=== PATIENT | female | born 1940 | race Hispanic/Latino ===

== ENCOUNTER 2017-02-03 17:08 | Emergency (ER) | payer MEDICARE ==
[2017-02-03 17:21] VITALS: BMI 31.4
[2017-02-03] MEDS ORDERED: Levalbuterol 1.25 MG/3 ML Inhal Soln UD IH STA ×2 (17:49→17:50)
[2017-02-03] MEDS ORDERED: guaiFENesin 200 mg/10 ml Syrup UD PO STA (17:50)
[2017-02-03] MEDS ORDERED: Ipratropium 0.02% Inhal Soln (0.5 mg/2.5 ml) UD IH STA ×2 (17:50)
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
[2017-02-03 19:11] LABS: ADD MANUAL DIFF? NO
[2017-02-03 19:15] LABS: BASO # 0.03 K/mm3 (0.0-2.0); BASO % 0.4 % (0.0-3.0); EOS # 0.1 (0.0-0.7); EOS % 1.1 % (1.5-5.0); GRAN # 4.48 (1.4-6.5); HEMATOCRIT 44.6 % (36.0-48.0); LYMPH # 2.1 (1.2-3.4); LYMPH % 27.1 % (22.0-35.0); MEAN CELL VOLUME 93.1 fL (80.0-105.0); MEAN CORPUSCULAR HEMOGLOBIN 32.4 pg (25.0-35.0); MEAN CORPUSCULAR HGB CONC 34.8 g/dl (31.0-37.0); MEAN PLATELET VOLUME 9.4 fl (7.0-11.0); MONO # 1.1 (0.1-0.6); MONO % 14.4 % (1.0-6.0); PLATELET COUNT 183 10^3/uL (120.0-450.0); RED CELL DISTRIBUTION WIDTH 13.2 % (11.5-14.5); WHITE BLOOD COUNT 7.9 10^3/ul (4.5-11.0)
[2017-02-03 19:29] LABS: ALB/GLOB RATIO 1.2 (1.1-1.8); ALKALINE PHOSPHATASE 89 U/L (38-133); ALT/SGPT 43 U/L (7-56); AST/SGOT 32 U/L (15-39); BILIRUBIN,TOTAL 0.6 mg/dL (0.2-1.3); BLOOD UREA NITROGEN 26 mg/dL (7-21); CALCIUM 9.7 mg/dL (8.4-10.5); CARBON DIOXIDE 27 mmol/L (21-33); CHLORIDE 95 mmol/L (98-107); GFR AFRICAN-AMERICAN > 60; GLUCOSE,RANDOM 152 mg/dL (70-110); INR 0.97 (0.93-1.08); LIPASE 170 U/L (23-300); MAGNESIUM 2.1 mg/dL (1.7-2.2); PARTIAL THROMBOPLASTIN TIME 25.7 Seconds (23.7-30.8); POTASSIUM 4.2 mmol/L (3.6-5.0); SODIUM 136 mmol/L (132-148); TOTAL PROTEIN 8.4 g/dL (5.8-8.3)
[2017-02-03 19:30] VITALS: BP 125/75
[2017-02-03 19:43] LABS: TROPONIN I < 0.01 ng/mL
[2017-02-03 22:06] VITALS: PULSE 89; TEMP 98; O2SAT 98
[2017-02-03 22:07] VITALS: RESP 18
--- NOTE | 2017-02-04 07:49 | RAD ---
PROCEDURE: CHEST RADIOGRAPH, 1 VIEW HISTORY: SOB COMPARISON: 05/21/2015 FINDINGS: LUNGS: Clear. PLEURA: No pneumothorax or pleural fluid seen. CARDIOVASCULAR: Normal heart soft this. Calcified aortic knob-unchanged OSSEOUS STRUCTURES: No significant abnormalities. VISUALIZED UPPER ABDOMEN: Normal. OTHER FINDINGS: Large body habitus limiting optimal evaluation IMPRESSION: No active disease.
--- NOTE | 2017-02-04 09:06 | US ---
HISTORY: Leg pain and swelling. Evaluate for DVT PHYSICIAN(S): Dejon Klein MD. TECHNIQUE: Duplex sonography and color-flow Doppler with graded compression were used to evaluate the deep venous systems of both lower extremities. FINDINGS: The visualized deep venous systems of both lower extremities are sonographically normal and compressible. Normal wave forms and augmentation are seen. There is no sonographic evidence for deep venous thrombosis in the visualized segments of both lower extremities. IMPRESSION: No sonographic evidence for deep venous thrombosis in the visualized segments of both lower extremities.
--- NOTE | 2017-02-04 11:22 | CT ---
PROCEDURE: CT Chest without contrast HISTORY: sob; cough, breast mass COMPARISON: None. TECHNIQUE: Contiguous axial images were obtained through the chest without intravenous contrast enhancement. Sagittal and coronal reconstructions were performed. Radiation dose (DLP): 753 mGy-cm. This CT exam was performed using one or more of the following dose reduction techniques: Automated exposure control, adjustment of the mA and/or kV according to patient size, and/or use of iterative reconstruction technique. FINDINGS: LUNGS: Clear lungs. Visualized airway clear. MEDIASTINUM: Unremarkable thoracic aorta. No aneurysm. Normal sized heart. Main pulmonary artery unremarkable. No vascular congestion. No lymphadenopathy. PLEURA: No pleural fluid. No pneumothorax. BONES: No fracture. No destructive lesion. UPPER ABDOMEN: Grossly unremarkable. OTHER FINDINGS: There is a 3 cm mass in the medial inferior aspect of the left breast. Coarse calcifications are seen in both breasts. Followup is recommended. The report concurs with the preliminary [facility] report IMPRESSION: Unremarkable non-contrast enhanced CT of the chest. There is a 3 cm mass in the medial inferior aspect of the left breast. Coarse calcifications are seen in both breasts. Followup is recommended.
--- NOTE | 2017-02-04 13:04 | CARD ---
APPROVED REPORT EKG Measurement Heart [id number] <Conclusion> Normal sinus rhythm Left axis deviation Minimal voltage criteria for LVH, may be normal variant
--- NOTE | 2017-02-04 13:15 | NM ---
COMPARISON: Chest x-ray 02/03/2017 TECHNIQUE: 33.0 mCi technetium 99-m DTPA aerosol. 4.0 mCI technetium 99-m MAA administered intravenously. FINDINGS: VENTILATION COMPONENT: Normal. PERFUSION COMPONENT: Normal. The report concurs with the preliminary [facility] report IMPRESSION: Lowprobability ventilation perfusion scan for pulmonary embolism.
== END 2017-02-03 22:07 | disposition home or self-care (01) ==
LOC: ED 17:08
DX: J20.9 Acute bronchitis, unspecified (principal); I10 Essential (primary) hypertension; E11.9 Type 2 diabetes mellitus without complications; Z72.0 Tobacco use
CPT/HCPCS: 71010; 71250; 78582; 80053; 82550; 83615; 83690; 83735; 83880; 84484; 85025; 85610; 85730; 87040; 93005; 93970; 96374; 99284; A9540; J2930

== ENCOUNTER 2017-09-29 16:29 | Inpatient (IN) | payer MEDICARE ==
[2017-09-29 16:40] VITALS: BMI 39.1
[2017-09-29 19:07] LABS: BASO # 0.03 K/mm3 (0.0-2.0); BASO % 0.5 % (0.0-3.0); EOS % 0.6 % (1.5-5.0); GRAN # 4.65 (1.4-6.5); GRAN % 75.3 % (50.0-68.0); HEMATOCRIT 41.4 % (36.0-48.0); LYMPH # 1.3 (1.2-3.4); LYMPH % 20.2 % (22.0-35.0); MEAN CELL VOLUME 95.6 fl (80.0-105.0); MEAN CORPUSCULAR HEMOGLOBIN 32.6 pg (25.0-35.0); MEAN CORPUSCULAR HGB CONC 34.1 g/dl (31.0-37.0); MEAN PLATELET VOLUME 9.5 fl (7.0-11.0); MONO # 0.2 (0.1-0.6); MONO % 3.4 % (1.0-6.0); RED CELL DISTRIBUTION WIDTH 13.5 % (11.5-14.5); WHITE BLOOD COUNT 6.2 10^3/ul (4.5-11.0)
[2017-09-29 19:09] LABS: INR 1.11 (0.93-1.08)
[2017-09-29 19:21] LABS: ALB/GLOB RATIO 1.5 (1.1-1.8); ALKALINE PHOSPHATASE 56 U/L (38-126); ALT/SGPT 42 U/L (7-56); AST/SGOT 42 U/L (14-36); BILIRUBIN,TOTAL 0.6 mg/dL (0.2-1.3); BLOOD UREA NITROGEN 15 mg/dL (7-21); CALCIUM 9.4 mg/dL (8.4-10.5); CARBON DIOXIDE 27 mmol/L (21-33); CHLORIDE 100 mmol/L (98-107); GFR AFRICAN-AMERICAN > 60; GLUCOSE,RANDOM 136 mg/dL (70-110); POTASSIUM 4.1 mmol/L (3.6-5.0); SODIUM 139 mmol/L (132-148); TOTAL PROTEIN 7.7 g/dL (5.8-8.3)
--- NOTE | 2017-09-29 19:25 | CT ---
EXAM: CT Head Without Intravenous Contrast CLINICAL HISTORY: 77 years old, female; Signs and symptoms; Altered mental status/memory loss; Additional info: [employer] TECHNIQUE: Axial computed tomography images of the head/brain without intravenous contrast. All CT scans at this facility use one or more dose reduction techniques, viz.: automated exposure control; ma/kV adjustment per patient size (including targeted exams where dose is matched to indication; i.e. head); or iterative reconstruction technique. COMPARISON: CT - HEAD W/O CONTRAST 2015-12-30 16:40 FINDINGS: Brain: [id number] atrophy. No intracranial hemorrhage. No mass. Several scattered foci of decreased attenuation within periventricular/subcortical white matter. No definite edema. Ventricles: No hydrocephalus. Bones/joints: No acute fracture. Soft tissues: Unremarkable. Vasculature: Mild atherosclerotic disease of intracranial arteries. Sinuses: Scattered minimal mucosal thickening. Mastoid air cells: No mastoid effusion. Orbits: Unremarkable as visualized. IMPRESSION: 1. Nonspecific white matter changes. Acute infarction may be CT occult within first 24 hours. If a focal deficit persists, consider followup CT or MRI for further evaluation. 2. Incidental/non-acute findings are described above.
[2017-09-29 19:33] LABS: TROPONIN I < 0.01 ng/mL
--- NOTE | 2017-09-29 19:40 | ED PDOC ---
Arrival/HPI - General Chief Complaint: Altered Mental Status Time Seen by Provider: 09/29/17 18:26 Historian: Patient, Family - History of Present Illness Narrative History of Present Illness (Text): 09/29/17 23:30 pt p/w + ~ 2 weeks onset of progressively worsening dyspnea with exertion, pt also has been requiring more oxygen supplementation; per family, pt also exhibit periods of poor memory; pt states she notice more difficulty with movement due to extreme fatigue/weakness; no fever/chills/sweats, no cp/ palpitations, no new coughing, no abd pain, no n/v, no numbness/tingling, no urinary/bowel changes, no fall/trauma/sick contact, no travel; pt denied leg swelling, no gross bleeding; pt is here for further eval; pt's without other complaints. Time/Duration: > week Symptom Onset: Gradual Symptom Course: Worsening Quality: Aching Severity Level: 5 Context: Walking, Exertion Past Medical History - Provider Review Nursing Documentation Reviewed: Yes - Travel History Have you recently traveled outside [place] w/in the past 3 mons?: No - Infectious Disease Hx of Infectious Diseases: None - Cardiac Hx Cardiac Disorders: Yes Hx Hypertension: Yes - Pulmonary Hx Chronic Obstructive Pulmonary Disease (COPD): Yes - Neurological Hx Neurological Disorder: No - HEENT Hx HEENT Disorder: Yes Hx Macular Degeneration: Yes - Renal Hx Renal Disorder: Yes Other/Comment: L kidney removed, only has one kidney - Endocrine/Metabolic Hx Endocrine Disorders: Yes Hx Diabetes Mellitus Type 2: Yes Hx Hypothyroidism: Yes - Hematological/Oncological Hx Blood Disorders: No - Integumentary Hx Dermatological Disorder: No - Musculoskeletal/Rheumatological Hx Musculoskeletal Disorders: Yes Hx Falls: Yes Other/Comment: FX R HIP - Gastrointestinal Hx Gastrointestinal Disorders: Yes Hx Diverticulitis: Yes - Genitourinary/Gynecological Hx Genitourinary Disorders: No - Psychiatric Hx Psychophysiologic Disorder: No Hx Substance Use: No - Surgical History Hx Cholecystectomy: Yes Hx Hysterectomy: Yes Hx Musculoskeletal Surgery: Yes (R hip replacement) Other/Comment: L kidney removed - Anesthesia Hx Anesthesia: Yes Hx Anesthesia Reactions: No - Suicidal Assessment Feels Threatened In Home Enviroment: No Family/Social History - Physician Review Nursing Documentation Reviewed: Yes Family/Social History: No Known Family HX Smoking Status: Light Smoker < 10 Cigarettes Daily Hx Alcohol Use: No Hx Substance Use: No Hx Substance Use Treatment: No Allergies/Home Meds Allergies/Adverse Reactions: Allergies codeine Allergy (Verified 09/29/17 16:40) NAUSEA levofloxacin [From Levaquin] Allergy (Verified 09/29/17 16:40) VOMITING meperidine HCl [From Demerol] Allergy (Verified 09/29/17 16:40) VOMITING morphine Allergy (Verified 09/29/17 16:40) SHORTNESS OF BREATH pentazocine lactate [From Talwin] Allergy (Verified 09/29/17 16:40) DIZZINESS Home Medications: Home Meds Medication Instructions Recorded Confirmed Glipizide 10 mg PO DAILY 04/22/15 02/03/17 Levothyroxine Sodium [Synthroid] 0.175 mg PO DAILY 04/22/15 02/03/17 Tramadol HCl [Ultram] 100 mg PO BID 04/22/15 02/03/17 Bisoprolol/HCTZ [Ziac 10-6.25 mg] 1 tab PO DAILY 12/30/15 02/03/17 Review of Systems - Review of Systems Constitutional: Fatigue Eyes: Normal ENT: Normal Respiratory: SOB Cardiovascular: Normal Gastrointestinal: Normal Genitourinary Female: Normal Musculoskeletal: Normal Skin: Normal Neurological: Dizziness Endocrine: Normal Hemo/Lymphatic: Normal Psychiatric: Normal Physical Exam Vital Signs Reviewed: Yes Vital Signs Temp Pulse Resp BP Pulse Ox 09/29/17 23:12 67 16 142/87 100 09/29/17 16:45 98.9 F 68 16 139/87 95 Temperature: Afebrile Blood Pressure: Normal Pulse: Regular Respiratory Rate: Normal Appearance: Positive for: Well-Appearing, Other (resting in bed, alert/awake, GCS = 15, oriented x 3, mildly uncomfortable, able to speak in full sentences, NAD) Pain Distress: None Mental Status: Positive for: Alert and Oriented X 3 - Systems Exam Head: Present: Atraumatic, Normocephalic Pupils: Present: PERRL Extroacular Muscles: Present: EOMI Conjunctiva: Present: Normal Ears: Present: Normal Mouth: Present: Moist Mucous Membranes Neck: Present: Normal Range of Motion Respiratory/Chest: Present: Clear to Auscultation, Good Air Exchange Cardiovascular: Present: Regular Rate and Rhythm, Normal S1, S2 Abdomen: Present: Normal Bowel Sounds. No: Tenderness Back: Present: Normal Inspection Upper Extremity: Present: Normal Inspection, Normal ROM, NORMAL PULSES, Capillary Refill < 2s Lower Extremity: Present: Normal Inspection, NORMAL PULSES, Normal ROM, Capillary Refill < 2 s, Other (no focal swelling/edema noted b/l lower ext). No : Rah's Sign Neurological: Present: GCS=15, CN II-XII Intact, Speech Normal Skin: Present: Warm, Normal Color. No: Rashes Psychiatric: Present: Alert, Oriented x 3, Normal Insight, Normal Concentration Medical Decision Making ED Course and Treatment: 09/29/2017 19:[address] FINDINGS: Brain: Kmve-[id number] atrophy. No intracranial hemorrhage. No mass. Several scattered foci of decreased attenuation within periventricular/subcortical white matter. No definite edema. Ventricles: No hydrocephalus. Bones/joints: No acute fracture. Soft tissues: Unremarkable. Vasculature: Mild atherosclerotic disease of intracranial arteries. Sinuses: Scattered minimal mucosal thickening. Mastoid air cells: No mastoid effusion. Orbits: Unremarkable as visualized. IMPRESSION: 1. Nonspecific white matter changes. Acute infarction may be CT occult within first 24 hours. IF a focal deficit persists, consider follow-up CT or MRI for furhter evaluation. 2. Incidental/non-acute findings are described above. Dictator: Tyler Del Real MD 09/29/17 23:35 pt with dyspnea on exertion as well as memory changes a/p: SOB, ? AMS - labs - iv - xray - ct - observe - supportive care I spoke to neon installer admitting team/Dr Mccabe for hospitalists, made aware, agrees with admission pt is currently chest pain free pt/family are made aware of pt's medical results pt agrees with admission Reassessment Condition: Unchanged - Lab Interpretations Lab Results: 09/29/17 18:50 09/29/17 18:50 Lab Results 09/29/17 18:50: Sodium 139, Potassium 4.1, Chloride 100, Carbon Dioxide 27, Anion Gap 16, BUN 15, Creatinine 0.8, Est GFR ( Amer) > 60, Est GFR (Non- Af Amer) > 60, Random Glucose 136 H, Calcium 9.4, Total Bilirubin 0.6, AST 42 H , ALT 42, Alkaline Phosphatase 56, Troponin I < 0.01, NT-Pro-B Natriuret Pep 222 , Total Protein 7.7, Albumin 4.6, Globulin 3.1, Albumin/Globulin Ratio 1.5 09/29/17 18:50: PT 12.1, INR 1.11 H 09/29/17 18:50: WBC 6.2 D, RBC 4.33, Hgb 14.1, Hct 41.4, MCV 95.6, MCH 32.6, MCHC 34.1, RDW 13.5, Plt Count 176, MPV 9.5, Gran % 75.3 H, Lymph % (Auto) 20.2 L, [place] % (Auto) 3.4, Eos % (Auto) 0.6 L, Baso % (Auto) 0.5, Gran # 4.65, Lymph # 1.3, [place] # 0.2, Eos # 0.0, Baso # 0.03 I have reviewed the lab results: Yes (WNL) Interpretation: All labs normal - RAD Interpretation Radiology Orders: 09/29/17 18:31 Brain [HEAD W/O CONTRAST] [CT] Stat CHEST TWO VIEWS (PA/LAT) [RAD] Stat Head CT FINDINGS: Brain: [id number] atrophy. No intracranial hemorrhage. No mass. Several scattered foci of decreased attenuation within periventricular/subcortical white matter. No definite edema. Ventricles: No hydrocephalus. Bones/joints: No acute fracture. Soft tissues: Unremarkable. Vasculature: Mild atherosclerotic disease of intracranial arteries. Sinuses: Scattered minimal mucosal thickening. Mastoid air cells: No mastoid effusion. Orbits: Unremarkable as visualized. IMPRESSION: 1. Nonspecific white matter changes. Acute infarction may be CT occult within first 24 hours. IF a focal deficit persists, consider follow-up CT or MRI for furhter evaluation. 2. Incidental/non-acute findings are described above. Dictator: Tyler Del Real MD CXR - rotated/poor insp effort, as read by me Sewer Pipe Layer Helper: ED Physician, Radiologist - EKG Interpretation EKG Interpretation (Text): 09/29/17 23:38 NSR at 60 bpm, LAD, no ectopy, inverted T in leads III, F, no st changes, ABNL EKG; no old ekg to compare with 09/29/17 23:39 Interpreted by ED Physician: Yes Type: 12 lead EKG Comparison: No previous EKG avail. - Medication Orders Current Medication Orders: Insulin Human Regular (Humulin R Med) 0 units SC ACHS LANCE PRN Reason: Protocol Levothyroxine Sodium (Synthroid) 175 mcg PO 0600 LANCE Bisoprolol/Hctz [ Ziac 10-6.25 Mg] ( Home Med) 1 tab PO DAILY LANCE Discontinued Medications Alprazolam (Xanax) 0.25 mg PO STAT STA PRN Reason: Protocol Stop: 09/29/17 22:44 Disposition/Present on Arrival - Present on Arrival Any Indicators Present on Arrival: No History of DVT/PE: No History of Uncontrolled Diabetes: Yes Urinary Catheter: No History of Decub. Ulcer: No History Surgical Site Infection Following: None - Disposition Have Diagnosis and Disposition been Completed?: Yes Diagnosis: MORATAYA (dyspnea on exertion), Altered mental status, unspecified Disposition: HOSPITALIZED Disposition Time: 23:30 Patient Plan: Admission, Observation Condition: STABLE
[2017-09-29 22:49] LABS: PH,URINE 5.5 (4.7-8.0); URINE BILIRUBIN NEGATIVE (NEGATIVE); URINE BLOOD NEGATIVE (NEGATIVE); URINE GLUCOSE (UA) NEGATIVE (NEGATIVE); URINE KETONE NEGATIVE (NEGATIVE); URINE LEUKOCYTE ESTERASE NEGATIVE Leu/uL (NEGATIVE); URINE PROTEIN 30 mg/dL (<30 mg/dL); URINE UROBILINOGEN 0.2 E.U./dL (<1 E.U./dL)
[2017-09-29 23:02] LABS: URINE APPEARANCE CLEAR (CLEAR); URINE COLOR YELLOW (YELLOW)
[2017-09-29 23:06] LABS: URINE AMORPHOUS SEDIMENT FEW; URINE BACTERIA MANY (NEG); URINE RBC 0 - 2 /hpf (0-2); URINE WBC 0 - 2 /hpf (0-6)
--- NOTE | 2017-09-30 00:16 | CP.PCM.HP ---
<Lamont Skaggs - Last Filed: 09/29/17 23:26> History of Present Illness - History of Present Illness History of Present Illness: Lamont Skaggs DO PGY1 - Internal Medicine H&P CC: Shortness of breath HPI: 77 yo F with PMH of afib, HTN, HLD, DM, COPD, hypothyroidism, saddle pulmonary embolus, and TIA presents complaining of progressive shortness of breath for the past 3-4 months, especially worsened in the past two weeks. She experiences shortness of breath with minimal activity, including any amount of walking, or changing her clothes. She has as-needed home oxygen, and has been using it more frequently recently. She denies any chest pain, cough, fever, chills, abdominal pain, nausea, vomiting constipation, recent illness, sick contacts, recent travel, recent medication changes. She reports 2 pillow orthopnea, unchanged from her baseline. 6 months ago, she was able to walk up and down stairs, as well as walk several blocks, without shortness of breath. She also reports intermittent diarrhea, which is normal for her for years. She also reports that prior to the recent worsening, she had been eating out and ordering food delivery frequently. Remainder of 12 point ROS was negative. PMH: As above PSH: Total abdominal hysterectomy and b/l salpingo-oophorectomy for early uterine cancer, left nephrectomy for abscess, right total hip arthoplasty, cholecystectomy Soc: Prior smoker, 12 PYH, quit 3 years ago. Denies alcohol or illicits. FHx: Mother [place] in 80's All: Patient reports having had reactions to a large number of medications, which make her "sick" including all anticoagulants/antiplatelets, and most antihypertenstives, as well as lasix Present on Admission - Present on Admission Any Indicators Present on Admission: No History of DVT/PE: Yes History of Uncontrolled Diabetes: No Urinary Catheter: No Decubitus Ulcer Present: No Past Patient History - Infectious Disease Hx of Infectious Diseases: None - Past Social History Smoking Status: Light Smoker < 10 Cigarettes Daily - CARDIAC Hx Cardiac Disorders: Yes Hx Hypertension: Yes - PULMONARY Hx Chronic Obstructive Pulmonary Disease (COPD): Yes - NEUROLOGICAL Hx Neurological Disorder: No - HEENT Hx HEENT Problems: Yes Hx Macular Degeneration: Yes - RENAL Hx Chronic Kidney Disease: Yes Other/Comment: L kidney removed, only has one kidney - ENDOCRINE/METABOLIC Hx Endocrine Disorders: Yes Hx Diabetes Mellitus Type 2: Yes Hx Hypothyroidism: Yes - HEMATOLOGICAL/ONCOLOGICAL Hx Blood Disorders: No - INTEGUMENTARY Hx Dermatological Problems: No - MUSCULOSKELETAL/RHEUMATOLOGICAL Hx Musculoskeletal Disorders: Yes Hx Falls: Yes Other/Comment: FX R HIP - GASTROINTESTINAL Hx Gastrointestinal Disorders: Yes Hx Diverticulitis: Yes - GENITOURINARY/GYNECOLOGICAL Hx Genitourinary Disorders: No - PSYCHIATRIC Hx Psychophysiologic Disorder: No Hx Substance Use: No - SURGICAL HISTORY Hx Cholecystectomy: Yes Hx Hysterectomy: Yes Hx Musculoskeletal Surgery: Yes (R hip replacement) Other/Comment: L kidney removed - ANESTHESIA Hx Anesthesia: Yes Hx Anesthesia Reactions: No Meds Allergies/Adverse Reactions: Allergies Allergy/AdvReac Type Severity Reaction Status Date / Time codeine Allergy NAUSEA Verified 09/29/17 16:40 levofloxacin [From Levaquin] Allergy VOMITING Verified 09/29/17 16:40 meperidine HCl [From Demerol] Allergy VOMITING Verified 09/29/17 16:40 morphine Allergy SHORTNESS Verified 09/29/17 16:40 OF BREATH pentazocine lactate Allergy DIZZINESS Verified 09/29/17 16:40 [From Talwin] Physical Exam - Constitutional Appears: Non-toxic, No Acute Distress - Head Exam Head Exam: ATRAUMATIC, NORMOCEPHALIC - Eye Exam Eye Exam: EOMI, Normal appearance, PERRL - ENT Exam ENT Exam: Mucous Membranes Moist - Neck Exam Neck exam: Positive for: Normal Inspection - Respiratory Exam Respiratory Exam: Decreased Breath Sounds, Rales (Faint, bibasilar), NORMAL BREATHING PATTERN. absent: Rhonchi, Wheezes, Stridor - Cardiovascular Exam Cardiovascular Exam: RRR, +S1, +S2 - GI/Abdominal Exam GI & Abdominal Exam: Normal Bowel Sounds, Soft. absent: Tenderness - Extremities Exam Extremities exam: Positive for: pedal edema (1+ pitting edema to knees bilaterally). Negative for: calf tenderness - Neurological Exam Neurological exam: Alert, CN II-XII Intact, Oriented x3 - Psychiatric Exam Psychiatric exam: Normal Affect, Normal Mood - Skin Skin Exam: Dry, Intact, Normal Color, Warm Results - Vital Signs Recent Vital Signs: Last Vital Signs Temp 98.9 F 09/29/17 16:45 Pulse 67 09/29/17 23:12 Resp 16 09/29/17 23:12 BP 142/87 09/29/17 23:12 Pulse Ox 100 09/29/17 23:12 - Labs Result Diagrams: 09/29/17 18:50 09/29/17 18:50 Labs: Laboratory Results - last 24 hr 09/29/17 22:47 Urine Color Yellow Urine Appearance Clear Urine pH 5.5 Ur Specific [place] 1.025 Urine Protein 30 H Urine Glucose (UA) Negative Urine Ketones Negative Urine Blood Negative Urine Nitrate Negative Urine Bilirubin Negative Urine Urobilinogen 0.2 Ur Leukocyte Esterase Negative Urine RBC 0 - 2 Urine WBC 0 - 2 Ur Epithelial Cells 3 - 4 Amorphous Sediment Few Urine Bacteria Many Urine Other Uyeast Assessment & Plan - Assessment and Plan (Free Text) Assessment: 77 yo F with PMH of afib, HTN, HLD, DM, COPD, hypothyroidism, DVT, saddle pulmonary embolus, and TIA presents complaining of progressive shortness of breath for the past 3-4 months, especially worsened in the past two weeks. Dyspnea on exertion - Patient was breathing comfortably, saturating well on RA; refused ABG - Discussed diuresis with patient, with the intention of trial of low-dose lasix ; patient refused - Likely 2/2 deconditioning vs congestive heart failure vs PE vs ACS - CXR shows increased vascular congestion; BNP normal; Initial troponin negative - Continue to trend troponins - Check TSH and free T4 to r/o undertreated hypothyroidism - Ordered echo to r/o reduced ejection fraction, wall motion abnormalities; prior echo from 2014 shows normal LVEF, normal LV function - Heart healthy, low sodium diet, fluid restricted to 1500mL - Cardiology consult requested, appreciate recs h/o Atrial Fibrillation - Currently rate controlled - Patient is on BB and ASA - Patient was previously anticoagulated, but reports having reactions to all anticoagulants and antiplatelets she has ever tried; tolerates ASA despite rash h/o PE and TIA - Patient had unprovoked saddle embolus in the past, and provoked DVT. - Was on eliquis in the past, though currently only on low dose ASA - Wells score 3 (16% chance of PE) - Ordered D-dimer; if positive, will order CTA chest PE protocol Hypothyroidism - Patient has history of hypothyroidism; sees Dr. Heaton (formula weigher) as outpatient, reportedly has been borderline hypothyroid despite taking synthroid , though this is intentional in setting of afib to avoid RVR - Resume home synthroid - Check TSH and free T4 h/o Hypertension - BP stable since admission - Resume home Bisoprolol/HCTZ h/o Insulin Dependant Diabetes - Patient is unsure of her exact insulin regimen at home - Hold oral hypoglycemics - Start SSI Med; accucheck ACHS GI/DVT Ppx - Pepcid and SCDs Patient seen, discussed, and reviewed with attending <Misha Mccabe - Last Filed: 09/30/17 01:38> Results - Vital Signs Recent Vital Signs: Last Vital Signs Temp 98.9 F 09/29/17 16:45 Pulse 67 09/29/17 23:12 Resp 16 09/29/17 23:12 BP 142/87 09/29/17 23:12 Pulse Ox 100 09/29/17 23:12 - Labs Result Diagrams: 09/29/17 18:50 09/29/17 18:50 Labs: Laboratory Results - last 24 hr 09/29/17 22:47 Urine Color Yellow Urine Appearance Clear Urine pH 5.5 Ur Specific [place] 1.025 Urine Protein 30 H Urine Glucose (UA) Negative Urine Ketones Negative Urine Blood Negative Urine Nitrate Negative Urine Bilirubin Negative Urine Urobilinogen 0.2 Ur Leukocyte Esterase Negative Urine RBC 0 - 2 Urine WBC 0 - 2 Ur Epithelial Cells 3 - 4 Amorphous Sediment Few Urine Bacteria Many Urine Other Uyeast Attending/Attestation - Attestation I have personally seen and examined this patient.: Yes I have fully participated in the care of the patient.: Yes I have reviewed all pertinent clinical information: Yes Notes (Text): 09/30/17 01:36 I agree with the above mentioned note and exam by the resident with the addition of the followin77 y/o female with a PMHx as listed above presents to the ED with ongoing dyspnea on exertion which has been worsening over the past few weeks. Patient was offered to have an ABG done to assess for hypoxemia, however she refused. She has had an outpatient PFT study done within the past few years which was relatively normal. She was also offered a trial of diuretics to assess for improvement in her shortness of breath and she refused that as well. Will send off D-dimer, if elevated, will obtain a CT Chest to rule out PE. 2decho also ordered; most recent one on file 2yrs prior does not show any significant signs of heart failure.
[2017-09-30 05:02] LABS: BASO # 0.01 K/mm3 (0.0-2.0); BASO % 0.2 % (0.0-3.0); EOS % 0.5 % (1.5-5.0); GRAN # 4.08 (1.4-6.5); HEMATOCRIT 39.5 % (36.0-48.0); LYMPH # 1.8 (1.2-3.4); LYMPH % 27.6 % (22.0-35.0); MEAN CELL VOLUME 94.7 fl (80.0-105.0); MEAN CORPUSCULAR HEMOGLOBIN 32.4 pg (25.0-35.0); MEAN CORPUSCULAR HGB CONC 34.2 g/dl (31.0-37.0); MEAN PLATELET VOLUME 9.7 fl (7.0-11.0); MONO # 0.6 (0.1-0.6); MONO % 8.7 % (1.0-6.0); RED CELL DISTRIBUTION WIDTH 13.7 % (11.5-14.5); WHITE BLOOD COUNT 6.5 10^3/ul (4.5-11.0)
[2017-09-30 05:22] LABS: ALB/GLOB RATIO 1.5 (1.1-1.8); ALKALINE PHOSPHATASE 56 U/L (38-126); ALT/SGPT 41 U/L (7-56); AST/SGOT 35 U/L (14-36); BILIRUBIN,TOTAL 0.5 mg/dL (0.2-1.3); BLOOD UREA NITROGEN 16 mg/dL (7-21); CALCIUM 9.3 mg/dL (8.4-10.5); CARBON DIOXIDE 27 mmol/L (21-33); CHLORIDE 101 mmol/L (98-107); GFR AFRICAN-AMERICAN > 60; GLUCOSE,RANDOM 194 mg/dL (70-110); MAGNESIUM 1.3 mg/dL (1.7-2.2); PHOSPHOROUS 2.9 mg/dL (2.5-4.5); POTASSIUM 3.3 mmol/L (3.6-5.0); SODIUM 140 mmol/L (132-148)
[2017-09-30] MEDS: Levothyroxine 175 MCG TAB PO SCH (05:56)
[2017-09-30 05:59] LABS: FREE T4 0.72 ng/dL (0.78-2.19)
[2017-09-30 06:13] LABS: THYROID STIMULATING HORMONE 4.58 mIU/mL (0.46-4.68)
[2017-09-30] MEDS ORDERED: Iodixanol 320 MG/ML 100 ML BOTTLE IV ONE (07:32)
--- NOTE | 2017-09-30 08:23 | RAD ---
HISTORY: Palpitations. COMPARISON: 02/03/2017 TECHNIQUE: Chest PA and lateral FINDINGS: LUNGS: No active pulmonary disease. PLEURA: No significant pleural effusion identified. No pneumothorax apparent. CARDIOVASCULAR: No radiographic findings to suggest acute or significant cardiovascular disease. OSSEOUS STRUCTURES: No significant abnormalities. VISUALIZED UPPER ABDOMEN: Normal. OTHER FINDINGS: None. IMPRESSION: No active disease. No significant interval change compared to the prior examination(s).
[2017-09-30] MEDS: Insulin Reg-MEDIUM-Coverage SC SCH ×4 (08:30→22:10)
[2017-09-30] MEDS ORDERED: Potassium Chloride 20 mEq ER Tab PO ONE (09:09)
[2017-09-30] MEDS ORDERED: Magnesium Sulfate 1 gm in D5W 1 GM/100 ML BAG IVPB ONE (09:09)
[2017-09-30] MEDS ORDERED: Magnesium Sulfate 2 GM in Sodium Chloride 0.9% 100 ML IVPB ONE (09:53)
[2017-09-30] MEDS ORDERED: HCTZ PO SCH (10:00)
[2017-09-30] MEDS ORDERED: BISOPROLOL PO SCH (10:00)
--- NOTE | 2017-09-30 10:22 | CARD ---
APPROVED REPORT EKG Measurement Heart [id number] <Conclusion> Normal sinus rhythm Left axis deviation Moderate voltage criteria for LVH, may be normal variant Abnormal ECG
[2017-09-30] MEDS: Magnesium Oxide 400 mg Tab UD PO SCH ×2 (10:37→17:29)
--- NOTE | 2017-09-30 13:02 | NM ---
COMPARISON: 02/01/2017 ventilation-perfusion scan. September 29, 2017. Two-view chest TECHNIQUE: 35.3 mCi technetium 99-m DTPA aerosol. 3.6 mCI technetium 99-m MAA administered intravenously. FINDINGS: VENTILATION COMPONENT: Mildly heterogeneous. Retention of radionuclide in the tracheobronchial tree and ingestion of radionuclide in the stomach, incidental findings PERFUSION COMPONENT: Heterogeneous distribution of radionuclide. No geographic, segmental, lobar abnormalities apparent on the present examination. IMPRESSION: Low probability ventilation perfusion scan for pulmonary embolism.
--- NOTE | 2017-09-30 13:12 | CON ---
DATE: 09/30/2017 REASON FOR THE CONSULTATION AND FOLLOWUP: Cardiac evaluation, shortness of breath, history of AFib, not in anticoagulation. BRIEF CLINICAL HISTORY: This is a 77-year-old female with past medical history significant for AFib, hypertension, hyperlipidemia, diabetes, COPD, hypothyroidism, history of pulmonary embolism 2 years ago, history of 043 , brought here because of shortness of breath. The patient has a history of similar episode 2-3 years ago and admitted for pulmonary embolism, so the patient came into emergency room, got scared. Denies any chest pain, shortness of breath, any palpitations. Past history is significant for pulmonary embolism, COPD, hypertension, hyperlipidemia, obesity, history of a year ago admitted to [facility], and according to the patient, he had a workup, not sure if stress test or echo, but he was told heart was okay. PAST HISTORY: Also significant for COPD, home oxygen off and on, history of PE. PAST SURGICAL HISTORY: Significant for bilateral salpingo-oophorectomy, hysterectomy, questionable history of uterine cancer versus dysfunctional uterine bleeding, history of possible left nephrectomy because of abscess and small kidney. History of degenerative joint disease, history of PE as mentioned pulmonary embolism, history of Serratia, pulmonary emboli on admission 05/21/2015. After that, the patient was started on Eliquis, but because of the bleeding, it was later on stopped according to the patient. SOCIAL HISTORY: Denies smoking. Denies any history of alcohol abuse. CURRENT MEDICATIONS: The patient at home was taking levothyroxine, hydrochlorothiazide, bisoprolol, tramadol, prednisone, glipizide, doxycycline, albuterol. REVIEW OF SYSTEMS: As per HPI. PHYSICAL EXAMINATION: VITAL SIGNS: Temperature afebrile, heart rate 79, blood pressure 142/82. HEENT: PERRLA. Extraocular muscles intact. NECK: Supple. No carotid bruit or thyromegaly. CHEST: Clear to auscultation. HEART: S1, S2 regular. ABDOMEN: Soft. EXTREMITIES: Clubbing and cyanosis negative. LABORATORY DATA: EKG in the computer shows normal sinus, left atrial hemiblock, left axis deviation, pulmonary pattern EKG. Blood workup as follows: WBC 6.5, hemoglobin 13.5, hematocrit 39.5, platelet count 188. Chemistry shows sodium 140, potassium 3.3, chloride 101, carbon dioxide 27, anion gap of 15, BUN 16, creatinine 0.8. TSH 4.58, troponin 0.01 negative. BNP admitting was 222. Chest x-ray essentially negative, question of mild congestion, but not in pulmonary edema. IMPRESSION: Shortness of breath. I am not sure it is new onset or old. The patient has a history of pulmonary embolism, history of diabetes, hypertension, hyperlipidemia, obesity, increased body mass index, 40 kg/m2. No evidence of acute myocardial infarction. No evidence of elevated BNP. RECOMMENDATION: We will get echo. We will add DVT prophylaxis, consider adding the DVT prophylaxis. Waiting for the patient go for CT angio. Once the CT angio is done, is negative, we will schedule a stress test in the morning. We will follow with you. Thank you Dr. Martinez for providing us the opportunity in taking care of the patient, Leo. We will add lipid profile, TSH, hemoglobin A1c. The patient is going for CT angio versus V/Q scan depending upon, if the patient is going to CT angio today, then we will get a scheduled stress test tomorrow, if the patient is going to CT angio, stress test in 2 to 3 days. Damon Rahman MD
[2017-09-30] MEDS: BISOPROLOL PO SCH (22:17)
[2017-09-30] MEDS: HCTZ PO SCH (22:17)
[2017-10-01] MEDS: Levothyroxine 175 MCG TAB PO SCH (05:50)
[2017-10-01] MEDS: HCTZ PO SCH (05:51)
[2017-10-01] MEDS: BISOPROLOL PO SCH (05:51)
[2017-10-01 07:38] LABS: BASO # 0.03 K/mm3 (0.0-2.0); BASO % 0.5 % (0.0-3.0); EOS # 0.2 (0.0-0.7); EOS % 3.2 % (1.5-5.0); GRAN # 2.42 (1.4-6.5); GRAN % 43.7 % (50.0-68.0); HEMATOCRIT 40.8 % (36.0-48.0); LYMPH # 2.2 (1.2-3.4); LYMPH % 38.9 % (22.0-35.0); MEAN CORPUSCULAR HGB CONC 33.3 g/dl (31.0-37.0); MEAN PLATELET VOLUME 9.3 fl (7.0-11.0); MONO # 0.8 (0.1-0.6); MONO % 13.7 % (1.0-6.0); RED CELL DISTRIBUTION WIDTH 13.9 % (11.5-14.5); WHITE BLOOD COUNT 5.6 10^3/ul (4.5-11.0)
[2017-10-01 07:58] LABS: ALB/GLOB RATIO 1.5 (1.1-1.8); ALKALINE PHOSPHATASE 51 U/L (38-126); ALT/SGPT 42 U/L (7-56); AST/SGOT 34 U/L (14-36); BILIRUBIN,TOTAL 0.6 mg/dL (0.2-1.3); BLOOD UREA NITROGEN 18 mg/dL (7-21); CARBON DIOXIDE 26 mmol/L (21-33); CHLORIDE 103 mmol/L (98-107); CHOLESTEROL 198 mg/dL (130-200); GFR AFRICAN-AMERICAN > 60; GLUCOSE,RANDOM 133 mg/dL (70-110); MAGNESIUM 1.9 mg/dL (1.7-2.2); PHOSPHOROUS 3.3 mg/dL (2.5-4.5); POTASSIUM 3.6 mmol/L (3.6-5.0); SODIUM 140 mmol/L (132-148); TOTAL PROTEIN 6.6 g/dL (5.8-8.3)
--- NOTE | 2017-10-01 08:45 | CON ---
ADDENDUM DATE: 09/30/2017 REASON FOR ADDENDUM: The patient had V/Q scan done, as the patient was scheduled for a stress test. We will cancel the stress test and that is scheduled for Thursday. Keep n.p.o. after midnight and resume the diet. Damon Rahman MD
[2017-10-01] MEDS: Insulin Reg-MEDIUM-Coverage SC SCH ×4 (08:58→21:59)
[2017-10-01] MEDS: Magnesium Oxide 400 mg Tab UD PO SCH ×2 (09:01→15:31)
--- NOTE | 2017-10-01 09:11 | CP.PCM.PN ---
Subjective - Date & Time of Evaluation Date of Evaluation: 10/01/17 Time of Evaluation: 06:30 - Subjective Subjective: Patient seen and examined at bedside. Not in acute distress with complaints of her usual migraine she wakes up with as well as joint pain in her knees. Patient states she wanted to sign out AMA since stress test was delayed. Explained to patient her stress test was delayed due to her having V/Q scan yesterday; nuclear stress test must be done 48 hours after. Denies chest pain, shortness of breath, palpitations, abdominal pain, fevers, chills, dizziness. Objective - Vital Signs/Intake and Output Vital Signs (last 24 hours): Temp Pulse Resp BP Pulse Ox 97.9 F 69 19 188/87 H 99 10/01/17 06:00 10/01/17 06:00 10/01/17 06:00 10/01/17 06:00 10/01/17 06:00 - Medications Medications: Current Medications Alprazolam (Xanax) 0.5 mg PO HS PRN; Protocol PRN Reason: Anxiety Last Admin: 09/30/17 22:33 Dose: 0.5 mg Aspirin (Ecotrin) 81 mg PO DAILY [facility] Last Admin: 09/30/17 10:37 Dose: 81 mg Insulin Human Regular (Humulin R Med) 0 units SC ACHS [facility] PRN Reason: Protocol Last Admin: 09/30/17 22:10 Dose: Not Given Levothyroxine Sodium (Synthroid) 175 mcg PO 0600 [facility] Last Admin: 10/01/17 05:50 Dose: 175 mcg Magnesium Oxide (Mag-Ox) 400 mg PO BID [facility] Last Admin: 09/30/17 17:29 Dose: 400 mg Bisoprolol/Hctz [ Ziac 10-6.25 Mg] ( Home Med) 1 tab PO DAILY [facility] Last Admin: 10/01/17 05:51 Dose: 1 tab Tramadol HCl (Ultram) 50 mg PO BID PRN PRN Reason: Pain, moderate (4-7) Last Admin: 10/01/17 05:50 Dose: 50 mg - Labs Labs: 10/01/17 06:30 10/01/17 06:30 PT 12.1 SECONDS (9.4-12.5) 09/29/17 18:50 INR 1.11 (0.93-1.08) H 09/29/17 18:50 - Constitutional Appears: Non-toxic, No Acute Distress - Head Exam Head Exam: ATRAUMATIC, NORMAL INSPECTION, NORMOCEPHALIC - Eye Exam Eye Exam: EOMI, Normal appearance - ENT Exam ENT Exam: Mucous Membranes Moist, Normal Exam - Neck Exam Neck Exam: Normal Inspection - Respiratory Exam Respiratory Exam: Clear to Ausculation Bilateral, NORMAL BREATHING PATTERN. absent: Wheezes - Cardiovascular Exam Cardiovascular Exam: Irregular Rhythm, +S1, +S2 - GI/Abdominal Exam GI & Abdominal Exam: Soft, Normal Bowel Sounds - Back Exam Back Exam: NORMAL INSPECTION - Neurological Exam Neurological Exam: Alert, Awake, Oriented x3 - Psychiatric Exam Psychiatric exam: Normal Affect, Normal Mood - Skin Skin Exam: Intact, Normal Color, Warm Assessment and Plan - Assessment and Plan (Free Text) Assessment: 77 yo F with PMH of afib, HTN, HLD, DM, COPD, hypothyroidism, DVT, saddle pulmonary embolus, and TIA presents complaining of progressive shortness of breath for the past 3-4 months, especially worsened in the past two weeks. Plan: 1. Dyspnea on exertion - Patient was breathing comfortably, saturating well on RA; refused ABG - Discussed diuresis with patient, with the intention of trial of low-dose lasix ; patient refused - Likely 2/2 deconditioning vs congestive heart failure vs PE vs ACS - CXR shows increased vascular congestion; BNP normal; Initial troponin negative - Ordered echo to r/o reduced ejection fraction, wall motion abnormalities; prior echo from 2014 shows normal LVEF, normal LV function - Heart healthy, low sodium diet, fluid restricted to 1500mL - Cardiology consult requested; echocardiogram and stress test ordered - Echocardiogram reveals; left ventricle normal in size, normal left ventricular wall thickness, normal left ventricular function. Mild to moderate tricuspid regurgitation. - Stress test will be performed tomorrow morning due to V/Q scan done on 09/30 scheduled for 9 a.m. (48 hour window needed between two tests), patient is NPO after midnight 2 h/o Atrial Fibrillation - Episode of atrial fibrillation with rvr occurred today for which Dr. Rahman was contacted and recommended 20 mg Cardizem; patient refused medication .Patient became symptomatic and accepted cardizem - Patient is on BB and ASA - Patient was previously anticoagulated, but reports having reactions to all anticoagulants and antiplatelets she has ever tried; tolerates ASA despite rash - Discussed with patient starting digoxin, patient states she had a reaction from digoxin where she became hypotensive, discussed with patient digoxin will affect heart rate not blood pressure, patient agreed to try medication. Spoke to Dr. Rahman regarding dosage of digoxin; digoxin started - Dr. Mendez and Dr. Rahman are on board overseeing patient's cardiac status 3. h/o PE and TIA - Patient had unprovoked saddle embolus in the past, and provoked DVT. - Was on eliquis in the past, though currently only on low dose ASA. Patient states she is well aware of the consequences of not being anticoagulated. Explained to patient , loss of mobility due to stroke was explained patient , states she knows. - Wells score 3 (16% chance of PE) - Ordered D-dimer; positive, CTA subsequently ordered, patient refused stating she is allergic to the dye they use, V/Q scan ordered instead; negative. 4. Hypothyroidism - Patient has history of hypothyroidism; sees Dr. Heaton (duty manager) as outpatient, reportedly has been borderline hypothyroid despite taking synthroid , though this is intentional in setting of afib to avoid RVR - Resume home synthroid - TSH and free T4; pending 5. h/o Hypertension - BP stable since admission - Bisoprolol/HCTZ resumed 6. h/o Insulin Dependant Diabetes - ISS Med; accucheck ACHS GI/DVT Ppx - Pepcid and SCDs Patient seen, discussed, and reviewed with attending
--- NOTE | 2017-10-01 09:32 | CARD ---
APPROVED REPORT EXAM: Two-dimensional and M-mode echocardiogram with Doppler and color Doppler. Other Information Quality : AverageRhythm : INDICATION Dyspnea 2D DIMENSIONS IVSd1.1 (0.7-1.1cm)LVDd4.9 (3.9-5.9cm) PWd1.1 (0.7-1.1cm)LVDs3.5 (2.5-4.0cm) FS (%) 27.6 %LVEF (%)53.0 (>50%) M-Mode DIMENSIONS Aortic Root3.30 (2.2-3.7cm)Aortic Cusp Exc.1.30 (1.5-2.0cm) Aortic Valve AoV Peak Uyoqefpn649.0cm/sLVOT Peak Iiycvpda924.0cm/sLVOT VTI27.20cm Mitral Valve MV E Qqetlzpb86.7cm/sMV A Zryzpmvl06.4cm/sE/A ratio0.8 TDI Lateral E' Peak V8.58cm/sMedial E' Peak V5.26cm/sE/Lateral E'7.5 E/Medial E'12.3 Pulmonary Valve PV Peak Memkgjgf60.9cm/sPV Peak Grad.3mmHg Tricuspid Valve TR Peak Yrtcrmvu541cs/sRAP [id number] Peak Gr.32mmHg [id number] LEFT VENTRICLE The left ventricle is normal size. There is normal left ventricular wall thickness. The left ventricular function is normal. The left ventricular ejection fraction is within the normal range. There is normal LV segmental wall motion. RIGHT VENTRICLE The right ventricle is normal size. ATRIA The left atrium size is normal. The right atrium size is normal. The interatrial septum is intact with no evidence for an atrial septal defect. AORTIC VALVE The aortic valve is moderately calcified. There is trace aortic regurgitation. MITRAL VALVE The mitral valve is mildly thickened but opens well. Mitral regurgitation is mild to moderate. TRICUSPID VALVE The tricuspid valve is normal in structure. There is mild to moderate tricuspid regurgitation. PULMONIC VALVE The pulmonic valve is not well visualized. There is trace pulmonic valvular regurgitation. GREAT VESSELS The aortic root is normal in size. PERICARDIAL EFFUSION There is no pericardial effusion. <Conclusion> The left ventricle is normal size. There is normal left ventricular wall thickness. The left ventricular function is normal. Mitral regurgitation is mild to moderate. There is mild to moderate tricuspid regurgitation.
--- NOTE | 2017-10-01 10:35 | CP.PCM.PN ---
Subjective - Date & Time of Evaluation Date of Evaluation: 10/01/17 Time of Evaluation: 10:30 - Subjective Subjective: refusal of cardizem medication to control heart rate. Objective - Vital Signs/Intake and Output Vital Signs (last 24 hours): Temp Pulse Resp BP Pulse Ox 97.9 F 69 19 188/87 H 99 10/01/17 06:00 10/01/17 06:00 10/01/17 06:00 10/01/17 06:00 10/01/17 06:00 - Medications Medications: Current Medications Alprazolam (Xanax) 0.5 mg PO HS PRN; Protocol PRN Reason: Anxiety Last Admin: 09/30/17 22:33 Dose: 0.5 mg Aspirin (Ecotrin) 81 mg PO DAILY [facility] Last Admin: 10/01/17 09:00 Dose: 81 mg Atorvastatin Calcium (Lipitor) 10 mg PO DIN LANCE Diltiazem HCl (Cardizem) 30 mg PO Q8H [facility] Insulin Human Regular (Humulin R Med) 0 units SC ACHS [facility] PRN Reason: Protocol Last Admin: 10/01/17 08:58 Dose: 2 units Levothyroxine Sodium (Synthroid) 175 mcg PO 0600 [facility] Last Admin: 10/01/17 05:50 Dose: 175 mcg Magnesium Oxide (Mag-Ox) 400 mg PO DAILY [facility] Non-Formulary Medication (Bisoprolol/Hctz [Ziac 10-6.25 Mg]) 1 tab PO BID LANCE Tramadol/Acetaminophen (Ultracet 37.5/325 Mg) 2 tab PO BID PRN PRN Reason: Pain, moderate (4-7) - Labs Labs: 10/01/17 06:30 10/01/17 06:30 PT 12.1 SECONDS (9.4-12.5) 09/29/17 18:50 INR 1.11 (0.93-1.08) H 09/29/17 18:50 - Constitutional Appears: Well, Non-toxic, No Acute Distress, Chronically Ill - Head Exam Head Exam: ATRAUMATIC - Eye Exam Eye Exam: EOMI, Normal appearance, PERRL Pupil Exam: NORMAL ACCOMODATION - ENT Exam ENT Exam: Mucous Membranes Moist, Normal Exam - Neck Exam Neck Exam: Full ROM, Normal Inspection - Respiratory Exam Respiratory Exam: NORMAL BREATHING PATTERN - Cardiovascular Exam Cardiovascular Exam: Irregular Rhythm - GI/Abdominal Exam GI & Abdominal Exam: Normal Bowel Sounds - Extremities Exam Extremities Exam: Full ROM, Normal Capillary Refill - Neurological Exam Neurological Exam: Alert, Awake, CN II-XII Intact, Oriented x3 Neuro motor strength exam: Left Upper Extremity: 5, Right Upper Extremity: 5, Left Lower Extremity: 5, Right Lower Extremity: 5 - Psychiatric Exam Psychiatric exam: Normal Affect, Normal Mood - Skin Skin Exam: Dry, Intact, Normal Color, Warm Assessment and Plan - Assessment and Plan (Free Text) Assessment: cardizem refusal Plan: Patient states very sensitive to medication had a horrible reaction to a medication to treat AFIB in the past was instructed not to take medication. Patient does not recall the medication. Maira called in [place] states she only was prescribed Amiodarone in the past but patient never filled prescription. Currently on Ziac prescribed BID ordered daily at [place] will adjust dose to BID. BID dose may control HR and hypertension better will continue to monitor.
--- NOTE | 2017-10-01 10:41 | CARD ---
APPROVED REPORT EKG Measurement Heart [id number] <Conclusion> Atrial fibrillation with rapid ventricular response Left axis deviation IVCD Possible ASMI, age unknown STTW changes c/w ischemia Artifact leads V 5 - 6. Probably no change
[2017-10-01 12:49] VITALS: RESP 20
[2017-10-01] MEDS ORDERED: Digoxin 500 mcg/2ml (0.5 mg/2ml) Inj IVP ONE (16:13)
[2017-10-01] MEDS: Digoxin 250 mcg (0.25 mg) Tab PO SCH (17:10)
[2017-10-01] MEDS ORDERED: Non Formulary Medication (Bisoprolol/Hctz [Ziac 10-6.25 Mg] 1 TAB) PO SCH (18:00)
[2017-10-01] MEDS: TraMADol/Apap 37.5/325 mg Tab PO PRN (22:05)
--- NOTE | 2017-10-02 00:09 | PN ---
DATE: 10/01/2017 LOCATION: The patient in room , bed 2. REASON FOR CONSULTATION AND FOLLOWUP: Shortness of breath, history of atrial fibrillation. SUBJECTIVE: The patient lying flat in bed without any chest pain or palpitations. Her shortness of breath is better. The patient lying flat in bed. PHYSICAL EXAMINATION VITAL SIGNS: Blood pressure 138/78, respirations 20, pulse 130, and temperature 98.6. HEENT: Head is normocephalic. Eyes; pupils are normal. Conjunctivae normal. Nose and throat normal. NECK: JVP is low. Carotids are equal. THORAX: AP diameter normal. LUNGS: Clear. CARDIOVASCULAR: S1 and S2. ABDOMEN: Soft. No tenderness. No organomegaly. Bowel sounds normal. EXTREMITIES: No clubbing. No cyanosis. LABORATORY DATA: WBC 5.6, hemoglobin 13.6, hematocrit 40.8, and platelets 172. Sodium 140, potassium 3.6, BUN 18, creatinine 0.8, and sugar 193. AST and ALT normal. Troponin x2 negative. TSH 4.58. Monitor; the patient was in sinus rhythm, but this morning, the patient had atrial fibrillation, rate around 120 per minute. The patient is asymptomatic. Nuclear lung scan, lower probability for pulmonary embolism. DIAGNOSES: Shortness of breath, lung scan negative for pulmonary embolism. The patient went into atrial fibrillation. The patient has history of previously also having atrial fibrillation 2 years ago, hypertension, hyperlipidemia, and obesity. The patient had an echocardiogram on 09/30/2017, which showed left ventricular ejection fraction of 53%, right ventricular systolic pressure 42 mmHg shows mild pulmonary hypertension, normal sized left ventricle, normal left ventricular systolic function, mitral regurgitation is mild to moderate, and [id number] tricuspid regurgitation. PLAN: I spent a lot of time with the patient to try to convince her that I want to try Cardizem to try to convert the patient's sinus rhythm. Also, the patient not only refused any new medication for atrial fibrillation, she also refused any type of anticoagulation for atrial fibrillation, so we have no choice, just to continue present therapy. The patient understands all the risks involved with the possibility of embolic phenomenon including massive stroke and any other effects of embolization. The patient is taking aspirin 81 daily, digoxin 0.25 daily, Lipitor 10 mg daily, magnesium oxide 400 daily, and Synthroid 175 mcg p.o. daily. The patient is scheduled for a stress test tomorrow morning. I will continue to follow. Damon Mendez MD
[2017-10-02 06:27] LABS: BASO # 0.03 K/mm3 (0.0-2.0); BASO % 0.5 % (0.0-3.0); EOS # 0.2 (0.0-0.7); EOS % 2.9 % (1.5-5.0); GRAN # 2.51 (1.4-6.5); GRAN % 42.1 % (50.0-68.0); HEMATOCRIT 39.8 % (36.0-48.0); LYMPH # 2.3 (1.2-3.4); LYMPH % 38.6 % (22.0-35.0); MEAN CELL VOLUME 97.1 fl (80.0-105.0); MEAN CORPUSCULAR HGB CONC 32.9 g/dl (31.0-37.0); MEAN PLATELET VOLUME 10.2 fl (7.0-11.0); MONO % 15.9 % (1.0-6.0); RED CELL DISTRIBUTION WIDTH 13.9 % (11.5-14.5)
[2017-10-02] MEDS: Levothyroxine 175 MCG TAB PO SCH (06:27)
[2017-10-02 06:36] VITALS: TEMP 97.8; O2SAT 94
[2017-10-02 07:42] LABS: ALB/GLOB RATIO 1.5 (1.1-1.8); ALKALINE PHOSPHATASE 49 U/L (38-126); ALT/SGPT 41 U/L (7-56); AST/SGOT 30 U/L (14-36); BILIRUBIN,TOTAL 0.7 mg/dL (0.2-1.3); BLOOD UREA NITROGEN 20 mg/dL (7-21); CALCIUM 8.7 mg/dL (8.4-10.5); CARBON DIOXIDE 25 mmol/L (21-33); CHLORIDE 103 mmol/L (98-107); GFR AFRICAN-AMERICAN > 60; GLUCOSE,RANDOM 158 mg/dL (70-110); POTASSIUM 3.4 mmol/L (3.6-5.0); SODIUM 141 mmol/L (132-148); TOTAL PROTEIN 6.4 g/dL (5.8-8.3)
[2017-10-02] MEDS: TraMADol/Apap 37.5/325 mg Tab PO PRN (08:36)
[2017-10-02] MEDS: Magnesium Oxide 400 mg Tab UD PO SCH (08:39)
[2017-10-02] MEDS: Digoxin 250 mcg (0.25 mg) Tab PO SCH (08:39)
[2017-10-02 08:40] VITALS: PULSE 67
[2017-10-02] MEDS ORDERED: Aminophylline 25 mg/ml Inj ONE (09:02)
[2017-10-02 09:07] VITALS: BP 154/83; PULSE 67
[2017-10-02] MEDS ORDERED: Potassium Chloride 20 mEq ER Tab PO ONE (09:13)
[2017-10-02] MEDS ORDERED: diltiaZEM 120 mg/24 Hours CD Cap PO SCH (10:00)
--- NOTE | 2017-10-02 13:10 | PN ---
DATE: 10/02/2017 REASON FOR CONSULTATION: Shortness of breath, history of atrial fibrillation, not taking anticoagulation by her choice. SUBJECTIVE: The patient denies any chest pain, has shortness of breath now palpitation. Daughter, Farzana, is at the bedside. PHYSICAL EXAMINATION: GENERAL: Not in apparent distress. VITAL SIGNS: Temperature afebrile, heart rate 68, blood pressure 153/84. HEENT: PERRLA. Extraocular muscles intact. NECK: Supple. No carotid bruit or thyromegaly. CHEST: Clear to auscultation. HEART: S1, S2 regular. ABDOMEN: Soft. EXTREMITIES: Clubbing and cyanosis negative. Patient is scheduled to stress test, but patient had a V/Q scan done, so rescheduled for today, also for echo. Last night, patient had rapid heart, history of AFib. Cardizem given initially, patient is resistant to take any medication but later on agreed to take medication. LABORATORY DATA: Telemetry shows AFib controlled rate, heart rate is 67. Blood workup as follows: WBC 6, hemoglobin 13, hematocrit 39.8, platelet count 176. Chemistry shows sodium 141, potassium 3.4, chloride 103, carbon dioxide 25, anion gap of 16, BUN 20, creatinine 0.8. IMPRESSION: Hypokalemia, atrial fibrillation, noncompliance with the medication does not take, history of pulmonary embolism, negative V/Q scan, low probability, history of one kidney, solitary history of left nephrectomy, underdeveloped kidney, history of pulmonary embolism in 05/21/2015. She was started on Eliquis, because patient started bleeding, stopped taking anticoagulation. The daughter says the patient was on multiple medications, but has issue, so is currently not in anticoagulation, though patient understood and daughter understood the risk of having a stroke but unable to take anticoagulation and preferred not to take anticoagulation. Shortness of breath, lung scan, low probability. Patient says that also she had [facility]. He had a stress test year ago and heart. The patient had a echo yesterday done that shows a ejection fraction 53%, right ventricular systolic pressure of 42 mmHg, normal left ventricular systolic function reported, mitral regurgitation, and [id number] tricuspid regurgitation. RV systolic pressure of 42. RECOMMENDATION: It spent a lot of time, explained to the patient, Leo Montero and explain to the daughter, Farzana, discussed the patient's condition and options. Ultimately, patient agreed to Cardizem, so switch over to Cardizem CD 140, will avoid Ziac for now and we will continue digoxin as well to control the heart rate, but patient and the daughter both are adamant to lactic anticoagulation because there was more risk of bleeding, though mentioned to the patient and have a significant risk for stroke and high CHADS score, thought they both understood, discussed in length with Farzana. Also, mentioned that patient would be able to go home after the stress test because of the [place] and we will follow the result of stress test and call Farzana, the daughter, telephone number [phone]. Also, discussed with the resident taking care of the patient. We will supplement potassium. I discussed with the patient that patient can be discharged after the stress test. We will start Cardizem CD 120 mg starting this morning. Damon Rahman MD
--- NOTE | 2017-10-02 20:53 | CARD ---
APPROVED REPORT Protocol: LEXISCAN Test Type: Lexiscan Sestamibi Stress Test Attending Physician: Dr. Damon Mendez Referring Physician: Dr. RAYMUNDO Test Indications: Chest Pain Height:5 ft 7 in Weight:206lbs Medications: INSULIN, SYNTHROID, MAG-OX, ULTRACET, XANAX, DIGOXIN, ASPIRIN, LIPITOR, CARDIZEM Medical History: 77 YEAR OLD FEMALE WITH A H/O HTN, DIABTETES, A-FIB, COPD, HYPOTHYROID, DIVERTICULITIES, ARTHRITIS, RIGHT HIP REPLACEMENT, CHOLECYSTECTOMY AND HYSTERECTOMY Target HR: 143 bpm Resting ECG: RSR. Non Specific ST_T Changes. Resting Heart Rate: 61 bpm Resting Blood Pressure: 138/74mmHg Submaximum (85%): 122 bpm PROCEDURE Pharmacologic stress testing was performed using 0.4mg per 5ml of regadenoson given intravenously over 7-10 seconds. Reversal agent aminophyline 100 mg, given intravenously for Dyspnea. POST EXERCISE Reason for Termination: Protocol completed Target HR: No Max HR: 59 bpm 49% of Maximum Predicted HR: 143 bpm Exercise duration: 00:31 min:sec, 0 Stage Exercise capacity: 1.0METs Max Blood Pressure: 138/74mmHg Blood Pressure response to exercise: normal resting BP - appropriate response Heart Rate response to exercise: appropriate Chest Pain: No, none Angina index: 0 Arrhythmia: No, none ST Change: Yes, No Additional ST_T Changes. Deviation: 0 mm INTERPRETATION Stress EKG Conclusion: IV LEXISCAN NUCLEAR STRESS TEST NEGATIVE FOR CHEST PAIN AND NEGATIVE FOR ADDITIONAL ST-T CHANGES. NUCLEAR SCAN REPORT PENDING. Signed by Damon Mendez Electronically Approved: 10/02/2017 12:01:36 EXAM: Myocardial Perfusion REST/STRESS Stress Test Type: Pharmacologic Imaging Protocol Rest Spect myocardial perfusion imaging was performed in supine position 60 minutes following the injection of 10.3 mCi of Tc-99 Myoview. At peak stress, the patient was injected intravenously with 30.1mCi of Tc-99 tetrofosmin after an infusion time of 0 minutes and 10 seconds. Gated Stress Spect was performed 70 minutes after intravenous Tc-99 Myoview injection. The images were gated to evaluate regional wall motion and calculate ventricular ejection fraction.Images were reconstructed using backfilter projection method in short horizontal and verticle long axis. Spect slices were generated. LV Perfusion The quality of the study is good. The left ventricle is normal in size. The right ventricle is unremarkable. The lung uptake is within normal limits. The distribution of tracer reveals normal uptake pattern throughout the LV myocardium on the stress study. The rest myocardial perfusion study shows no significant change. Wall Motion Wall motion study shows good contractility of the left ventricle. LVEF = 71%. Conclusion 1. Normal SPECT myocardial perfusion study. 2. Normal gated wall motion of the left ventricle.
--- NOTE | 2017-10-02 23:32 | CP.PCM.DIS ---
Provider - Provider Date of Admission: 09/30/17 15:15 Attending physician: Duane Martinez MD Primary care physician: Alex Sales MD Hospital Course - Lab Results Lab Results: Most Recent Lab Values WBC 6.0 10^3/ul (4.5-11.0) 10/02/17 05:15 RBC 4.10 10^6/uL (3.5-6.1) 10/02/17 05:15 Hgb 13.1 g/dL (12.0-16.0) 10/02/17 05:15 Hct 39.8 % (36.0-48.0) 10/02/17 05:15 MCV 97.1 fl (80.0-105.0) 10/02/17 05:15 MCH 32.0 pg (25.0-35.0) 10/02/17 05:15 MCHC 32.9 g/dl (31.0-37.0) 10/02/17 05:15 RDW 13.9 % (11.5-14.5) 10/02/17 05:15 Plt Count 176 10^3/uL (120.0-450.0) 10/02/17 05:15 MPV 10.2 fl (7.0-11.0) 10/02/17 05:15 Gran % 42.1 % (50.0-68.0) L 10/02/17 05:15 Lymph % (Auto) 38.6 % (22.0-35.0) H 10/02/17 05:15 [place] % (Auto) 15.9 % (1.0-6.0) H 10/02/17 05:15 Eos % (Auto) 2.9 % (1.5-5.0) 10/02/17 05:15 Baso % (Auto) 0.5 % (0.0-3.0) 10/02/17 05:15 Gran # 2.51 (1.4-6.5) 10/02/17 05:15 Lymph # 2.3 (1.2-3.4) 10/02/17 05:15 [place]lan # 1.0 (0.1-0.6) H 10/02/17 05:15 Eos # 0.2 (0.0-0.7) 10/02/17 05:15 Baso # 0.03 K/mm3 (0.0-2.0) 10/02/17 05:15 PT 12.1 SECONDS (9.4-12.5) 09/29/17 18:50 INR 1.11 (0.93-1.08) H 09/29/17 18:50 D-Dimer, Quantitative 1839 ng/mL (0-243) H 09/30/17 02:15 Sodium 141 mmol/L (132-148) 10/02/17 07:10 Potassium 3.4 mmol/L (3.6-5.0) L 10/02/17 07:10 Chloride 103 mmol/L (98-107) 10/02/17 07:10 Carbon Dioxide 25 mmol/L (21-33) 10/02/17 07:10 Anion Gap 16 (10-20) 10/02/17 07:10 BUN 20 mg/dL (7-21) 10/02/17 07:10 Creatinine 0.8 mg/dl (0.7-1.2) 10/02/17 07:10 Est GFR ( Amer) > 60 10/02/17 07:10 Est GFR (Non-Af Amer) > 60 10/02/17 07:10 POC Glucose (mg/dL) 152 mg/dL (65-110) H 10/02/17 12:27 Random Glucose 158 mg/dL (70-110) H 10/02/17 07:10 Hemoglobin A1c 6.7 % (4.2-6.5) H 10/01/17 06:30 Calcium 8.7 mg/dL (8.4-10.5) 10/02/17 07:10 Phosphorus 3.3 mg/dL (2.5-4.5) 10/01/17 06:30 Magnesium 1.9 mg/dL (1.7-2.2) 10/01/17 06:30 Total Bilirubin 0.7 mg/dL (0.2-1.3) 10/02/17 07:10 AST 30 U/L (14-36) 10/02/17 07:10 ALT 41 U/L (7-56) 10/02/17 07:10 Alkaline Phosphatase 49 U/L (38-126) 10/02/17 07:10 Troponin I < 0.01 ng/mL 09/30/17 02:30 NT-Pro-B Natriuret Pep 222 pg/mL (0-450) 09/29/17 18:50 Total Protein 6.4 g/dL (5.8-8.3) 10/02/17 07:10 Albumin 3.8 g/dL (3.0-4.8) 10/02/17 07:10 Globulin 2.6 gm/dL 10/02/17 07:10 Albumin/Globulin Ratio 1.5 (1.1-1.8) 10/02/17 07:10 Triglycerides 216 mg/dL (35-160) H 10/01/17 06:30 Cholesterol 198 mg/dL (130-200) 10/01/17 06:30 LDL Cholesterol Direct 110 mg/dL (0-129) 10/01/17 06:30 HDL Cholesterol 51 mg/dL (29-60) 10/01/17 06:30 Free T4 0.72 ng/dL (0.78-2.19) L 09/30/17 04:40 TSH 3rd Generation 4.58 mIU/mL (0.46-4.68) 09/30/17 04:40 Urine Color Yellow (YELLOW) 09/29/17 22:47 Urine Appearance Clear (CLEAR) 09/29/17 22:47 Urine pH 5.5 (4.7-8.0) 09/29/17 22:47 Ur Specific [place] 1.025 (1.005-1.035) 09/29/17 22:47 Urine Protein 30 mg/dL (<30 mg/dL) H 09/29/17 22:47 Urine Glucose (UA) Negative mg/dL (NEGATIVE) 09/29/17 22:47 Urine Ketones Negative mg/dL (NEGATIVE) 09/29/17 22:47 Urine Blood Negative (NEGATIVE) 09/29/17 22:47 Urine Nitrate Negative (NEGATIVE) 09/29/17 22:47 Urine Bilirubin Negative (NEGATIVE) 09/29/17 22:47 Urine Urobilinogen 0.2 E.U./dL (<1 E.U./dL) 09/29/17 22:47 Ur Leukocyte Esterase Negative Jessica/uL (NEGATIVE) 09/29/17 22:47 Urine RBC 0 - 2 /hpf (0-2) 09/29/17 22:47 Urine WBC 0 - 2 /hpf (0-6) 09/29/17 22:47 Ur Epithelial Cells 3 - 4 /hpf (0-5) 09/29/17 22:47 Amorphous Sediment Few 09/29/17 22:47 Urine Bacteria Many (NEG) 09/29/17 22:47 Urine Other Uyeast 09/29/17 22:47 Discharge Exam - Head Exam Head Exam: ATRAUMATIC, NORMAL INSPECTION, NORMOCEPHALIC Discharge Plan - Discharge Medications Prescriptions: Atorvastatin [Lipitor] 20 mg PO DAILY 30 Days #30 tab Digoxin [Digitek] 0.25 mg PO DAILY 30 Days #30 tab diltiaZEM [Cardizem] 120 mg PO DAILY 30 Days #30 tab - Follow Up Plan Condition: STABLE Disposition: HOME/ ROUTINE Instructions: Chest Pain (DC), COPD (Chronic Obstructive Pulmonary Disease) (DC ), Dyspnea (GEN) Additional Instructions: 1. Please follow up with your primary care physician Dr. Sales within 3-5 days. 2. Please call and make up a follow up appointment with Dr. Rahman regarding stress test. 3. Please go to your pharmacy and fill and take medications as prescribed. Referrals: Damon Rahman MD [Staff Provider] - Alex Sales MD [Primary Care Provider] -
== END 2017-10-02 20:25 | disposition home or self-care (01) | DRG 310 ==
LOC: ED 16:29 → ERH 21:08 → 3RSO 23:30 → OBSVTOIN 09-30 15:15
PROVIDERS: ADMIT Internal Medicine; ATTEND Internal Medicine
DX: I48.91 Unspecified atrial fibrillation (principal); I12.9 Hypertensive chronic kidney disease with stage 1 through stage 4 chronic kidney disease, or unspecified chronic kidney disease; N18.9 Chronic kidney disease, unspecified; E11.22 Type 2 diabetes mellitus with diabetic chronic kidney disease; I27.20 Pulmonary hypertension, unspecified; E03.9 Hypothyroidism, unspecified; E87.6 Hypokalemia; E78.5 Hyperlipidemia, unspecified; E66.9 Obesity, unspecified; I08.1 Rheumatic disorders of both mitral and tricuspid valves; Z96.641 Presence of right artificial hip joint; Z68.32 Body mass index [BMI] 32.0-32.9, adult; Z86.711 Personal history of pulmonary embolism; Z87.891 Personal history of nicotine dependence; Z79.84 Long term (current) use of oral hypoglycemic drugs; Z86.73 Personal history of transient ischemic attack (TIA), and cerebral infarction without residual deficits; Z91.14 Patient's other noncompliance with medication regimen

== ENCOUNTER 2017-12-05 20:34 | Emergency (ER) | payer MEDICARE ==
[2017-12-05 20:34] VITALS: BMI 39.1
--- NOTE | 2017-12-05 21:51 | ED PDOC ---
Arrival/HPI - General Historian: Patient, Family - History of Present Illness Time/Duration: Other (Several Days) Symptom Onset: Sudden Symptom Course: Unchanged Activities at Onset: Rest, Light Context: Home <Bobby Mendiola - Last Filed: 12/06/17 03:55> <Cameron Toledo - Last Filed: 12/06/17 12:59> - General Chief Complaint: Psychiatric Evaluation Time Seen by Provider: 12/05/17 20:39 - History of Present Illness Narrative History of Present Illness (Text): 12/05/17 21:48 A 77 year old female, whose past medical history includes dementia, diabetes, PE , hypertension, COPD and atrial fibrillation, is brought into the emergency department by daughter who are the patient's power of transactional attorney, for a complaint of increasing agitation and non-compliance with medications. The patient has become very argumentative at home and symptoms have been increasing over the past few days with no history of violence or intent to harm herself. The patient denies any recent illness. The patient lives at home and denies use of ETOH, denies smoking. The patient denies fevers, chills, headache, dizziness, chest pain, shortness of breath, dyspnea on exertion, cough, abdominal pain, nausea, vomiting, diarrhea, back pain, neck pain, urinary/bowel changes, or any other complaint. PMD: Dr. Sales (Bobby Mendiola) Past Medical History - Provider Review Nursing Documentation Reviewed: Yes - Infectious Disease Hx of Infectious Diseases: None - Cardiac Hx Atrial Fibrillation: Yes Hx Hypertension: Yes - Pulmonary Hx Chronic Obstructive Pulmonary Disease (COPD): Yes - Neurological Hx Neurological Disorder: No - HEENT Hx HEENT Disorder: Yes Hx Macular Degeneration: Yes - Renal Hx Renal Disorder: Yes Other/Comment: L kidney removed, only has one kidney - Endocrine/Metabolic Hx Endocrine Disorders: Yes Hx Diabetes Mellitus Type 2: Yes Hx Hypothyroidism: Yes - Hematological/Oncological Hx Blood Disorders: No - Integumentary Hx Dermatological Disorder: No - Musculoskeletal/Rheumatological Hx Musculoskeletal Disorders: Yes Hx Falls: Yes Other/Comment: FX R HIP - Gastrointestinal Hx Gastrointestinal Disorders: Yes Hx Diverticulitis: Yes - Genitourinary/Gynecological Hx Genitourinary Disorders: No - Psychiatric Hx Psychophysiologic Disorder: No Hx Substance Use: No - Surgical History Hx Cholecystectomy: Yes Hx Hysterectomy: Yes Hx Musculoskeletal Surgery: Yes (R hip replacement) Other/Comment: L kidney removed - Anesthesia Hx Anesthesia: Yes Hx Anesthesia Reactions: No - Suicidal Assessment Feels Threatened In Home Enviroment: No <Bobby Mendiola - Last Filed: 12/06/17 03:55> Family/Social History - Physician Review Nursing Documentation Reviewed: Yes Family/Social History: No Known Family HX Smoking Status: Light Smoker < 10 Cigarettes Daily Hx Alcohol Use: No Hx Substance Use: No Hx Substance Use Treatment: No <Bobby Mendiola - Last Filed: 12/06/17 03:55> Allergies/Home Meds <Bobby Mendiola - Last Filed: 12/06/17 03:55> <Cameron Toledo - Last Filed: 12/06/17 12:59> Allergies/Adverse Reactions: Allergies codeine Allergy (Verified 12/05/17 22:37) NAUSEA iodine Allergy (Verified 12/05/17 22:37) RASH levofloxacin [From Levaquin] Allergy (Verified 12/05/17 22:37) VOMITING meperidine HCl [From Demerol] Allergy (Verified 12/05/17 22:37) VOMITING morphine Allergy (Verified 12/05/17 22:37) SHORTNESS OF BREATH pentazocine lactate [From Talwin] Allergy (Verified 12/05/17 22:37) DIZZINESS Home Medications: Home Meds Medication Instructions Recorded Confirmed Glipizide 10 mg PO DAILY 04/22/15 12/06/17 Levothyroxine Sodium [Synthroid] 0.175 mg PO DAILY 04/22/15 12/06/17 Tramadol HCl [Ultram] 100 mg PO BID 04/22/15 12/06/17 Bisoprolol/HCTZ [Ziac 10-6.25 mg] 1 tab PO DAILY 12/30/15 12/06/17 Review of Systems - Physician Review All systems were reviewed & negative as marked: Yes - Review of Systems Constitutional: absent: Fevers, Night Sweats Respiratory: absent: SOB, Cough Cardiovascular: absent: Chest Pain, MORATAYA Gastrointestinal: absent: Abdominal Pain, Stool Changes, Diarrhea, Nausea, Vomiting Genitourinary Female: absent: Urine Output Changes Musculoskeletal: absent: Back Pain, Neck Pain Neurological: absent: Headache, Dizziness Psychiatric: Other (Increasing agitation and non-compliance with medication.) <Sukumar Mendiolaneth - Last Filed: 12/06/17 03:55> Physical Exam Vital Signs Reviewed: Yes Temperature: Afebrile Blood Pressure: Normal Pulse: Regular Respiratory Rate: Normal Appearance: Positive for: Well-Appearing, Non-Toxic, Comfortable Pain Distress: None Mental Status: Positive for: Alert and Oriented X 3 - Systems Exam Head: Present: Atraumatic, Normocephalic Pupils: Present: PERRL Extroacular Muscles: Present: EOMI Conjunctiva: Present: Normal Mouth: Present: Moist Mucous Membranes Neck: Present: Normal Range of Motion Respiratory/Chest: Present: Clear to Auscultation, Good Air Exchange. No: Respiratory Distress, Accessory Muscle Use Cardiovascular: Present: Normal S1, S2, Irregular Rhythm (Irregulary irregular, but controlled). No: Murmurs Abdomen: Present: Normal Bowel Sounds. No: Tenderness, Distention, Peritoneal Signs Back: Present: Normal Inspection Upper Extremity: Present: Normal Inspection. No: Cyanosis, Edema Lower Extremity: Present: Normal Inspection. No: Edema Neurological: Present: GCS=15, CN II-XII Intact, Speech Normal, Other (No focal or acute neurologic deficits. ) Skin: Present: Warm, Dry, Normal Color. No: Rashes Psychiatric: Present: Alert, Oriented x 3 (Patient oriented and able to answer questions. Patient is loud and confrontational, yelling and cursing at staff and family. No signs of injury. ), Normal Insight, Normal Concentration, Other ( Patient combative and uncooperative. ) <MauryBobby - Last Filed: 12/06/17 03:55> Vital Signs Temp Pulse Resp BP Pulse Ox 12/06/17 06:00 97.8 F 90 16 132/65 96 12/06/17 04:32 125 H 135/70 12/06/17 04:15 98.7 F 124 H 16 135/74 99 12/06/17 02:00 98.6 F 102 H 16 123/86 99 12/06/17 00:00 98.5 F 95 H 16 121/78 99 12/05/17 22:34 98.7 F 90 18 127/87 98 12/05/17 20:34 98.8 F 87 16 128/81 97 Medical Decision Making - Lab Interpretations I have reviewed the lab results: Yes - EKG Interpretation Interpreted by ED Physician: Yes Type: 12 lead EKG <Bobby Mendiola - Last Filed: 12/06/17 03:55> <Cameron Toledo - Last Filed: 12/06/17 12:59> ED Course and Treatment: 12/05/17 21:54 Impression: A 77 year old female is brought into the emergency department for increasing agitation and non- compliance with medication. Symptoms have been increasing over the past few days. Plan: -- EKG -- Labs -- Haldol, Ativan -- Urinalysis -- Reassess and disposition Progress Notes: 12/05/17 22:19: Patient refused EKG. EK12/06/17 02:44 Ordered, reviewed, and independently interpreted the EKG. Rate : 114 BPM Rhythm : A- Fib Interpretation : No acute changes 12/06/17 02:46: Patient complains of trouble breathing. Lungs clear. Oxygen saturation at 96%. Patient appears to be comfortable. Heart rate currently at 110. Chest X-ray pending. 12/06/17 03:54: Chest X-ray read and interpreted by me shows clear lungs. No CHF. No infiltrates. (Bobby Mendiola) 12/06/17 09:13 Seen and evaluated by crisis. She will be admitted to the psychiatric floor on the geriatric unit at [facility]. She has been medically cleared in the emergency department. 12/06/17 12:58 Daughter, who is power of transactional attorney, is here now and has signed patient into the geriatric crisis unit. (Cameron Toledo) - Lab Interpretations Lab Results: 12/05/17 21:30 12/05/17 21:30 Lab Results 12/06/17 06:51: POC Glucose (mg/dL) 114 H 12/06/17 02:33: Urine Opiates Screen Negative, Urine Methadone Screen Negative, Ur Barbiturates Screen Negative, Ur Phencyclidine Scrn Negative, Ur Amphetamines Screen Negative, U Benzodiazepines Scrn Positive, U Oth Cocaine Metabols Negative, U Cannabinoids Screen Negative 12/06/17 02:33: Urine Color Yellow, Urine Appearance Clear, Urine pH 6.0, Ur Specific [place] <= 1.005, Urine Protein Negative, Urine Glucose (UA) Negative, Urine Ketones Negative, Urine Blood Negative, Urine Nitrate Negative, Urine Bilirubin Negative, Urine Urobilinogen 0.2, Ur Leukocyte Esterase Trace H, Urine RBC 0 - 2, Urine WBC 1 - 3, Ur Epithelial Cells 0 - 2 12/05/17 21:30: Alcohol, Quantitative < 10 12/05/17 21:30: Salicylates < 1 L, Acetaminophen < 10.0 L 12/05/17 21:30: Sodium 142, Potassium 3.7, Chloride 105, Carbon Dioxide 21, Anion Gap 20, BUN 14, Creatinine 0.8, Est GFR ( Amer) > 60, Est GFR (Non- Af Amer) > 60, Random Glucose 145 H, Calcium 10.0, Total Bilirubin 0.6, AST 44 H D, ALT 47, Alkaline Phosphatase 70, Total Protein 7.3, Albumin 4.2, Globulin 3.1, Albumin/Globulin Ratio 1.3 12/05/17 21:30: WBC 7.4 D, RBC 4.36, Hgb 13.9, Hct 41.4, MCV 95.0, MCH 31.9, MCHC 33.6, RDW 12.2, Plt Count 168, MPV 9.7, Gran % 60.4, Lymph % (Auto) 26.5, [place] % (Auto) 10.6 H, Eos % (Auto) 2.2, Baso % (Auto) 0.3, Gran # 4.50, Lymph # (Auto) 2.0, [place] # (Auto) 0.8 H, Eos # (Auto) 0.2, Baso # (Auto) 0.02 12/05/17 20:43: POC Glucose (mg/dL) 142 H - RAD Interpretation Radiology Orders: 12/06/17 02:46 CHEST PORTABLE [RAD] Stat - Medication Orders Current Medication Orders: Discontinued Medications Digoxin (Lanoxin) 0.25 mg IVP STAT STA Stop: 12/06/17 04:33 Last Admin: 12/06/17 04:32 Dose: 0.25 mg MAR Apical Pulse Rate Document 12/06/17 04:32 AB (Rec: 12/06/17 04:52 AB [id number]) Apical Pulse Rate Apical Pulse Rate (60-90 beats/min) 126 IVP Administration Document 12/06/17 04:32 AB (Rec: 12/06/17 04:52 [id number] Charges for Administration # of IVP Administrations 1 Diltiazem HCl (Cardizem) 120 mg PO STAT STA Stop: 12/06/17 04:33 Last Admin: 12/06/17 04:32 Dose: 120 mg MAR Pulse and Blood Pressure Document 12/06/17 04:32 AB (Rec: 12/06/17 04:51 AB [facility] [id number] Pulse Pulse Rate (60-90 beats/min) 125 Blood Pressure Blood Pressure (100/60-150/90 mm Hg) 135/70 Haloperidol Lactate (Haldol) 5 mg IM STAT STA PRN Reason: Protocol Stop: 12/05/17 21:17 Last Admin: 12/05/17 21:16 Dose: 5 mg IM Administration Charges Document 12/05/17 21:16 AB (Rec: 12/05/17 22:01 AB [facility] [id number] Injection Site MAR Injection Site Left Deltoid Charges for Administration # of IM Administrations 1 Lorazepam (Ativan) 2 mg IM STAT STA Stop: 12/05/17 21:16 Last Admin: 12/05/17 21:16 Dose: 2 mg IM Administration Charges Document 12/05/17 21:16 AB (Rec: 12/05/17 22:01 AB [facility] [id number] Injection Site MAR Injection Site Right Deltoid Charges for Administration # of IM Administrations 1 Lorazepam (Ativan) 2 mg IVP ONCE ONE PRN Reason: Protocol Stop: 12/06/17 00:12 Last Admin: 12/06/17 00:29 Dose: 2 mg IVP Administration Document 12/06/17 00:29 AB (Rec: 12/06/17 00:29 AB [facility] [id number] Charges for Administration # of IVP Administrations 1 Ziprasidone (Geodon Cap) 40 mg PO STAT STA PRN Reason: Protocol Stop: 12/05/17 22:25 Last Admin: 12/05/17 23:10 Dose: 40 mg Ziprasidone (Geodon Inj) 20 mg IM STAT STA PRN Reason: Protocol Stop: 12/06/17 01:37 Last Admin: 12/06/17 01:44 Dose: 20 mg IM Administration Charges Document 12/06/17 01:44 AB (Rec: 12/06/17 01:45 AB [facility] [id number]) Injection Site MAR Injection Site Left Vastus Lateralis Charges for Administration # of IM Administrations 1 - Scribe Statement The provider has reviewed the documentation as recorded by the Scribe <Bobby Mendiloa - Last Filed: 12/06/17 03:55> <Cameron Toledo - Last Filed: 12/06/17 12:59> - Scribe Statement Pastora Gill Provider Scribe Attestation: All medical record entries made by the Scribe were at my direction and personally dictated by me. I have reviewed the chart and agree that the record accurately reflects my personal performance of the history, physical exam, medical decision making, and the department course for this patient. I have also personally directed, reviewed, and agree with the discharge instructions and disposition. (Bobby Mendiola) Disposition/Present on Arrival - Present on Arrival History of DVT/PE: Yes History of Uncontrolled Diabetes: No Urinary Catheter: No History of Decub. Ulcer: No History Surgical Site Infection Following: None <Bobby Mendiola - Last Filed: 12/06/17 03:55> - Present on Arrival Any Indicators Present on Arrival: No History of DVT/PE: No History of Uncontrolled Diabetes: No Urinary Catheter: No History of Decub. Ulcer: No - Disposition Have Diagnosis and Disposition been Completed?: Yes Disposition Time: 12:59 Patient Plan: Transfer To <Cameron Toledo - Last Filed: 12/06/17 12:59> - Disposition Diagnosis: Dementia, Psychosis Disposition: Transfer HUMU Condition: STABLE Referrals: Alex Sales MD [Primary Care Provider] - Follow up with primary Forms: inFreeDA (Swedish)
[2017-12-05 21:58] LABS: BASO # 0.02 K/mm3 (0.0-2.0); BASO % 0.3 % (0.0-3.0); EOS # 0.2 (0.0-0.7); EOS % 2.2 % (1.5-5.0); GRAN # 4.5 (1.4-6.5); GRAN % 60.4 % (50.0-68.0); HEMOGLOBIN 13.9 g/dL (12.0-16.0); LYMPH % 26.5 % (22.0-35.0); MEAN CORPUSCULAR HEMOGLOBIN 31.9 pg (25.0-35.0); MEAN CORPUSCULAR HGB CONC 33.6 g/dl (31.0-37.0); MEAN PLATELET VOLUME 9.7 fl (7.0-11.0); MONO # 0.8 (0.1-0.6); MONO % 10.6 % (1.0-6.0); RBC 4.36 10^6/uL (3.5-6.1); RED CELL DISTRIBUTION WIDTH 12.2 % (11.5-14.5); WHITE BLOOD COUNT 7.4 10^3/ul (4.5-11.0)
[2017-12-05 22:10] LABS: ACETAMINOPHEN < 10.0 ug/ml (10.0-20.0); SALICYLATE < 1 mg/dL (2.0-20.0)
[2017-12-05 22:11] LABS: ALB/GLOB RATIO 1.3 (1.1-1.8); ALBUMIN 4.2 g/dL (3.0-4.8); ALT/SGPT 47 U/L (7-56); AST/SGOT 44 U/L (14-36); BLOOD UREA NITROGEN 14 mg/dL (7-21); GFR AFRICAN-AMERICAN > 60; GFR NON-AFRICAN AMERICAN > 60
[2017-12-06 03:03] LABS: URINE BILIRUBIN NEGATIVE (NEGATIVE); URINE BLOOD NEGATIVE (NEGATIVE); URINE GLUCOSE (UA) NEGATIVE (NEGATIVE); URINE LEUKOCYTE ESTERASE TRACE Leu/uL (NEGATIVE); URINE NITRATE NEGATIVE (NEGATIVE); URINE PROTEIN NEGATIVE mg/dL (<30 mg/dL); URINE UROBILINOGEN 0.2 E.U./dL (<1 E.U./dL)
[2017-12-06 03:05] LABS: BARBITURATES, UR NEGATIVE (NEGATIVE); BENZODIAZEPINES, UR POSITIVE (NEGATIVE); OPIATES, UR NEGATIVE (NEGATIVE); PHENCYCLIDINE, UR NEGATIVE (NEGATIVE); URINE APPEARANCE CLEAR (CLEAR); URINE COLOR YELLOW (YELLOW)
[2017-12-06 03:31] LABS: URINE EPITHELIAL CELLS 0 - 2 /hpf (0-5); URINE RBC 0 - 2 /hpf (0-2)
[2017-12-06] MEDS ORDERED: Digoxin 500 mcg/2ml (0.5 mg/2ml) Inj IVP STA (04:32)
[2017-12-06 04:52] VITALS: PULSE 126
[2017-12-06 06:18] VITALS: O2SAT 96
--- NOTE | 2017-12-06 09:01 | RAD ---
HISTORY: Shortness of breath are COMPARISON: 09/29/2017. FINDINGS: LUNGS: The lungs are well inflated. There is mild pulmonary venous congestion. PLEURA: No significant pleural effusion identified, no pneumothorax apparent. CARDIOVASCULAR: The heart is normal in size. Atherosclerotic aortic arch calcifications are present. OSSEOUS STRUCTURES: No significant abnormalities. VISUALIZED UPPER ABDOMEN: Normal. OTHER FINDINGS: None. IMPRESSION: Mild pulmonary venous congestion. No active pulmonary disease.
[2017-12-06 13:23] VITALS: BP 136/84; PULSE 88; RESP 20; TEMP 98.6
--- NOTE | 2017-12-06 14:58 | CARD ---
APPROVED REPORT EKG Measurement Heart [id number] <Conclusion> Atrial fibrillation with rapid ventricular response Left axis deviation Minimal voltage criteria for LVH, may be normal variant Septal infarct, age undetermined ST & T wave abnormality, consider lateral ischemia or digitalis effect Abnormal ECG
== END 2017-12-06 14:09 | disposition short-term general hospital (02) ==
LOC: ED 20:34
DX: F03.90 Unspecified dementia, unspecified severity, without behavioral disturbance, psychotic disturbance, mood disturbance, and anxiety (principal); I48.91 Unspecified atrial fibrillation; I10 Essential (primary) hypertension; E11.9 Type 2 diabetes mellitus without complications; Z86.711 Personal history of pulmonary embolism; Z91.19 Patient's noncompliance with other medical treatment and regimen; F17.210 Nicotine dependence, cigarettes, uncomplicated
CPT/HCPCS: 71045; 80053; 81001; 82948; 85025; 87086; 90791; 93005; 96372; 96374; 96375; 99285; G0480; J1160; J1630; J2060; J3486

== ENCOUNTER 2018-02-09 17:00 | Inpatient (IN) | payer MEDICARE ==
[2018-02-09 17:20] VITALS: BMI 30.5
[2018-02-09] MEDS ORDERED: diltiaZEM IVPB 100mg in NS 100 ML IV PRN (17:43)
--- NOTE | 2018-02-09 17:51 | ED PDOC ---
Arrival/HPI - General Chief Complaint: Weakness/Neurological Deficit Time Seen by Provider: 02/09/18 17:03 Historian: Patient, Family - History of Present Illness Narrative History of Present Illness (Text): 02/09/18 17:47 Patient is a 77 yo female, past medical history of dementia, atrial fibrillation (not anticoagulated due to "allergy" and patient refusal"), hx of diabetes, hx of pulmonary embolisms, presents to the Emergency Department via ambulance with two daughters with history of increased weakness over the past several months. Daughters state that she has had deteriorating condition for "several months" where they have noted that "she doesn't walk any more or want to move" starting "a few months ago", also "she doesn't have as much of an appetite", and she is generally more bed bound. They state that there has NOT been an acute change and that this has occurred gradually over the past several months. She has intermittent diarrhea "since last year", intermittent nausea "for years". She has not reported headache or chest pain or abdominal pain. Daughter states that several days ago she had expressed to her that she was feeling short of breath, and started using her 's oxygen. No trauma reported. No fevers reported. Time/Duration: Prior to Arrival, > month Symptom Onset: Gradual Past Medical History - Infectious Disease Hx of Infectious Diseases: None - Tetanus Immunization Tetanus Immunization: Unknown - Cardiac Hx Atrial Fibrillation: Yes Hx Cardiac Arrhythmia: Yes (A-Fib) Hx Hypertension: Yes - Pulmonary Hx Chronic Obstructive Pulmonary Disease (COPD): Yes Hx Pulmonary Embolism: Yes - Neurological Hx Dementia: Yes Hx Seizures: No - HEENT Hx HEENT Disorder: Yes Hx Cataracts: Yes Hx Macular Degeneration: Yes (R blind, L shadows) - Renal Hx Renal Disorder: Yes - Endocrine/Metabolic Hx Hypothyroidism: Yes - Hematological/Oncological Hx AIDS: No Hx Blood Transfusions: No - Integumentary Hx Dermatological Disorder: No - Musculoskeletal/Rheumatological Hx Arthritis: Yes Hx Fractures: Yes (RHIP, PELVIS) - Gastrointestinal Hx Diverticulitis: Yes Hx Gall Bladder Disease: Yes - Genitourinary/Gynecological Hx Sexually Transmitted Diseases: No - Psychiatric Hx Physical Abuse: No Hx Sexual Abuse: No Hx Substance Use: No - Surgical History Hx Cholecystectomy: Yes - Anesthesia Hx Anesthesia: Yes Hx Anesthesia Reactions: No Hx Malignant Hyperthermia: No - Suicidal Assessment Feels Threatened In Home Enviroment: No Family/Social History Family/Social History: Unknown Family HX Smoking Status: Never Smoked Hx Alcohol Use: No Hx Substance Use: No Hx Substance Use Treatment: No Allergies/Home Meds Allergies/Adverse Reactions: Allergies codeine Allergy (Verified 12/06/17 14:41) NAUSEA iodine Allergy (Verified 12/06/17 14:41) RASH levofloxacin [From Levaquin] Allergy (Verified 12/06/17 14:41) VOMITING meperidine HCl [From Demerol] Allergy (Verified 12/06/17 14:41) VOMITING morphine Allergy (Verified 12/06/17 14:41) SHORTNESS OF BREATH pentazocine lactate [From Talwin] Allergy (Verified 12/06/17 14:41) DIZZINESS pencillin Allergy (Uncoded 02/09/18 22:57) SHORTNESS OF BREATH Blood Thinners Adverse Reaction (Uncoded 02/09/18 22:42) VOMITING Flu like symptoms, fatigue, weakness, elevated BP Home Medications: Home Meds Medication Instructions Recorded Confirmed Glipizide 10 mg PO DAILY 04/22/15 02/09/18 Insulin Glargine, Recombina 14 unit SQ HS 12/06/17 02/09/18 [Lantus] Insulin Glargine, Recombina 24 units SQ DAILY 12/06/17 02/09/18 [Lantus] Divalproex [Depakote ER] 250 mg PO BID 02/09/18 02/09/18 traZODone [trazODONE HYDROCHLORIDE] 100 mg PO HS 02/09/18 02/09/18 Review of Systems - Review of Systems Constitutional: Fatigue. absent: Weight Change, Fevers Eyes: Vision Changes ENT: absent: Hearing Changes Respiratory: SOB. absent: Cough Cardiovascular: MORATAYA. absent: Chest Pain Gastrointestinal: Diarrhea, Nausea, Appetite Changes. absent: Abdominal Pain, Constipation, Hematochezia, Hematemesis Genitourinary Female: Other (incontinent at times). absent: Dysuria, Frequency Musculoskeletal: Back Pain Skin: absent: Rash Neurological: Speech Changes. absent: Headache, Dizziness, Focal Weakness Hemo/Lymphatic: absent: Easy Bleeding Psychiatric: Depression Physical Exam Vital Signs Reviewed: Yes Vital Signs Temp Pulse Resp BP Pulse Ox 02/09/18 21:00 131 H 18 123/76 95 02/09/18 20:36 125/81 02/09/18 20:00 99.6 F 02/09/18 19:26 117 H 16 122/65 93 L 02/09/18 19:25 101 H 122/65 02/09/18 18:20 148 H 18 118/88 95 02/09/18 18:10 173 H 132/104 H 02/09/18 17:19 98 F 157 H 20 132/104 H 97 Temperature: Afebrile Pulse: Tachycardic Respiratory Rate: Tachypneic Appearance: Positive for: Ill-Appearing Mental Status: Positive for: Confused - Systems Exam Head: Present: Atraumatic Pupils: Present: Other (hx of macular degeneration) Conjunctiva: No: Injected Mouth: Present: Moist Mucous Membranes Pharnyx: No: ERYTHEMA Nose (Internal): Present: Normal Inspection, No Active Bleeding Neck: Present: Normal Range of Motion. No: Meningeal Signs, JVD Respiratory/Chest: Present: Rales, Tachypneic. No: Respiratory Distress Cardiovascular: Present: Murmurs, Irregular Rhythm, Tachycardic Abdomen: Present: Normal Bowel Sounds. No: Tenderness Rectal: No: Rectal Tenderness, Gross Blood Back: Present: Midline Tenderness, Paraspinal Tenderness. No: CVA Tenderness, Pain with Leg Raise Upper Extremity: No: Cyanosis Lower Extremity: Present: NORMAL PULSES, Neurovascularly Intact. No: Edema, CALF TENDERNESS Neurological: Present: Motor Func Grossly Intact, Normal Sensory Function. No: Speech Normal (mild slurred speech), Gait Normal, Memory Normal Skin: Present: Dry Psychiatric: Present: Alert. No: Oriented x 3, Normal Insight, Normal Concentration Medical Decision Making ED Course and Treatment: 02/09/18 17:58 Patient's history supplemented by two daughters at bedside. Patient on exam is noted to have irregular tachycardic rate, although oxygen saturations 98%, and she denies any pain or discomfort. Daughter reports she has been complaining of some shortness of breath recently. Otherwise they states that she has been "weaker" over the course of several months. On exam she has mild slurred speech, although daughter states that it is not unusual for her to have this on and off. She will move all four extremities. Patient is not taking a blood thinner because she "refuses to take it" as per family and "she's allergic to it". I did review most recent CT angio of chest which revealed no large central PE. 02/09/18 18:00 DDx, afib, chf, tia/cva, uti, electrolyte imbalance, back pain, lumbar spine disease. There are st changes noted on EKG, possibly rate related although ischemia cannot be excluded given diabetes. Patient currently denies chest pain or sob. 02/09/18 19:07 Abnormal EKG reviewed with patient and daughters. I have reviewed abnormal labs including troponin. Differential includes cardiac ischemia, ND, PE, although patient had repeatedly expressed to family and caregivers that she does not want any blood thinners or invasive procedures. After initial Cardizem bolus and drip, heart rate improved only slightly to rate of 130-140. Blood pressure remains stable, patient will be given additional bolus of Cardizem. Updated family of possible myocardial infarction, possible ischemia, they state that she is "DNR" and "DNI". She has persistent pain to her lower back that is palpable. Abdomen is soft and nontender. 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 They report she has had difficulty swallowing pills recently. Pain medication options reviewed with patient and family. I have paged Dr. Lantigua to review EKG, troponin, clinical presentation. 02/09/18 19:30 Patient's care reviewed with Dr. Sales who confirms patient has refused anticoagulation in past. Rate improved. Will admit to telemetry under hospitalist. Family does not wish any invasive procedures. Family in her current stat also expresses this. 02/09/18 19:42 Case d/w Dr. Gordon, accepts patient to hospitalist service. Follow-up of head ct and abdominal ct endorsed to Dr. Gordon for follow-up. Repeat EKG reveals Atrial fibrillation with rate of 105, st changes noted anteriorly. Patient denies chest pain. - Critical Care Critical Care Minutes: 30 minutes - Lab Interpretations Lab Results: 02/09/18 17:30 02/09/18 17:30 Lab Results 02/09/18 17:30: Phosphorus 4.0 02/09/18 17:30: Magnesium 1.7 02/09/18 17:30: Valproic Acid 33 L 02/09/18 17:30: Sodium 134, Potassium 4.1, Chloride 93 L, Carbon Dioxide 27, Anion Gap 18, BUN 22 H, Creatinine 0.9, Est GFR ( Amer) > 60, Est GFR ( Non-Af Amer) > 60, Random Glucose 159 H, Calcium 9.4, Total Bilirubin 0.9, AST 32, ALT 36, Alkaline Phosphatase 73, Lactate Dehydrogenase 649, Total Creatine Kinase 60, Troponin I 1.30 H* D, NT-Pro-B Natriuret Pep 60020 H, Total Protein 6.9, Albumin 4.1, Globulin 2.9, Albumin/Globulin Ratio 1.4 02/09/18 17:30: PT 13.2 H, INR 1.15 H, APTT 32.3 02/09/18 17:30: WBC 9.9 D, RBC 4.92, Hgb 15.3, Hct 43.9, MCV 89.2 D, MCH 31.1 , MCHC 34.9, RDW 13.8, Plt Count 169, MPV 10.8, Gran % 67.0, Lymph % (Auto) 16.4 L, [place] % (Auto) 16.3 H, Eos % (Auto) 0.2 L, Baso % (Auto) 0.1, Gran # 6.65 H, Lymph # (Auto) 1.6, [place] # (Auto) 1.6 H, Eos # (Auto) 0.0, Baso # (Auto ) 0.01 - RAD Interpretation Radiology Orders: 02/09/18 17:40 HEAD W/O CONTRAST [CT] Stat CHEST PORTABLE [RAD] Stat 02/09/18 18:28 ABD & PELVIS W/O PO OR IV CONT [CT] Stat LS SPINE AP/LAT [RAD] Stat - EKG Interpretation Interpreted by ED Physician: Yes Type: 12 lead EKG - Medication Orders Current Medication Orders: Hydrochlorothiazide (Hydrodiuril) 25 mg PO DAILY LANCE Ceftriaxone Sodium (Rocephin 1 Gram Ivpb) 1 gm in 100 mls @ 100 mls/hr IVPB DAILY LANCE PRN Reason: Protocol diltiaZEM IVPB 100mg in NS (Cardizem 100mg In Ns) 100 mls @ 15 mls/hr IV .Q6H40M PRN; Protocol; 15 MG/HR PRN Reason: TITRATE PER MD ORDER Last Admin: 02/10/18 07:21 Dose: 15 mg/hr, 15 mls/hr eMAR Start Stop Document 02/10/18 07:21 CD (Rec: 02/10/18 07:22 [id number] Intraven[facility] Solution Start Date 02/10/18 Start Time 07:22 MAR Pulse Rate Document 02/10/18 07:21 CD (Rec: 02/10/18 07:22 [place] [id number]) Pulse Rate Pulse Rate (60-90 beats/min) 110 Titration Intervention Document 02/10/18 07:21 CD (Rec: 02/10/18 07:22 [place] [id number]) Titration Intake Cumulative Intake (Rx) 100 Waste Amount 0 Container Volume 100 Titration Dosing Titration Dose 15 IV Rate 15 Intake/Decrease Started/Running Cumulative Dose 100 Valproate Sodium 250 mg/ (Sodium Chloride) 52.5 mls @ 52.5 mls/hr IVPB BID [facility] Last Admin: 02/10/18 01:51 Dose: 52.5 mls/hr eMAR Start Stop Document 02/10/18 01:51 KOPPS (Rec: 02/10/18 01:52 KOPPS [id number]) Intravenous Solution Start Date 02/10/18 Start Time 01:51 End Date 02/10/18 End time 02:51 Total Infusion Time 60 Insulin Human Regular (Humulin R Med) 0 units SC ACHS [facility] PRN Reason: Protocol Last Admin: 02/10/18 08:02 Dose: Not Given Non-Admin Reason: NPO MAR Blood Glucose Document 02/10/18 08:02 CD (Rec: 02/10/18 08:02 [id number] Blood Glucose Finger Stick Blood Glucose (70-120) 152 Levothyroxine Sodium (Synthroid) 125 mcg PO 0600 [facility] Last Admin: 02/10/18 05:14 Dose: Pantoprazole Sodium (Protonix Ec Tab) 40 mg PO 0600 [facility] Last Admin: 02/10/18 05:14 Dose: Pregabalin (Lyrica) 50 mg PO BID [facility] Last Admin: 02/10/18 00:01 Dose: Tramadol HCl (Ultram) 50 mg PO TID LANCE Trazodone HCl (Desyrel) 100 mg PO HS [facility] Last Admin: 02/10/18 00:00 Dose: Discontinued Medications Aspirin (Aspirin Supp) 300 mg STAT STA Stop: 02/09/18 19:37 Last Admin: 02/09/18 20:02 Dose: 300 mg MAR Pain/Vitals Document 02/09/18 20:02 AD (Rec: 02/09/18 20:02 AD [id number]) Pain Reassessment Is This A Pain ReAssessment? No Presence of Pain Presence of Pain Yes Diltiazem HCl (Cardizem) 15 mg IVP STAT STA Stop: 02/09/18 17:44 Last Admin: 02/09/18 18:10 Dose: 15 mg IVP Administration Document 02/09/18 18:10 MS (Rec: 02/09/18 18:11 MS [id number]) Charges for Administration # of IVP Administrations 1 MAR Pulse and Blood Pressure Document 02/09/18 18:10 MS (Rec: 02/09/18 18:11 MS [id number]) Pulse Pulse Rate (60-90 beats/min) 173 Blood Pressure Blood Pressure (100/60-150/90 mm Hg) 132/104 Diltiazem HCl (Cardizem) 20 mg IVP ONCE ONE Stop: 02/09/18 19:07 Last Admin: 02/09/18 19:25 Dose: 20 mg IVP Administration Document 02/09/18 19:25 MS (Rec: 02/09/18 19:26 MS [id number]) Charges for Administration # of IVP Administrations 1 MAR Pulse and Blood Pressure Document 02/09/18 19:25 MS (Rec: 02/09/18 19:26 MS [id number]) Pulse Pulse Rate (60-90 beats/min) 101 Blood Pressure Blood Pressure (100/60-150/90 mm Hg) 122/65 Divalproex Sodium (Depakote Dr (*Bid*)) 250 mg PO BID LANCE PRN Reason: Protocol Last Admin: 02/10/18 00:00 Dose: Furosemide (Lasix) 20 mg IVP STAT STA Stop: 02/09/18 19:38 Last Admin: 02/09/18 20:36 Dose: 20 mg MAR Blood Pressure Document 02/09/18 20:36 AD (Rec: 02/09/18 20:36 [id number] Blood Pressure Blood Pressure (100/60-150/90 mm Hg) 125/81 IVP Administration Document 02/09/18 20:36 AD (Rec: 02/09/18 20:36 AD [id number]) Charges for Administration # of IVP Administrations 1 Hydrochlorothiazide (Microzide) 12.5 mg PO STAT STA Stop: 02/09/18 23:14 Last Admin: 02/10/18 00:01 Dose: diltiaZEM IVPB 100mg in NS (Cardizem 100mg In Ns) 100 mls @ 5 mls/hr IV .Q20H PRN; Protocol; 5 MG/HR PRN Reason: TITRATE PER MD ORDER Last Titration: 02/09/18 21:53 Dose: 15 mg/hr, 15 mls/hr MAR Pulse Rate Document 02/09/18 21:53 AD (Rec: 02/09/18 21:53 [id number]) Pulse Rate Pulse Rate (60-90 beats/min) 163 Titration Intervention Document 02/09/18 21:53 AD (Rec: 02/09/18 21:53 AD [id number]) Titration Intake Titration Intake 15 Cumulative Intake 15 Cumulative Intake (Rx) 15 Waste Amount 0 Container Volume 65 Titration Dosing Titration Dose 15 IV Rate 15 Intake/Decrease Increased Cumulative Dose 15 Ceftriaxone Sodium (Rocephin 2 Gm Ivpb) 2 gm in 100 mls @ 100 mls/hr IVPB STAT STA PRN Reason: Protocol Stop: 02/09/18 23:22 Last Admin: 02/10/18 00:02 Dose: 100 mls/hr eMAR Start Stop Document 02/10/18 00:02 IRINA (Rec: 02/10/18 00:02 [facility] [id number]) Intravenous Solution Start Date 02/10/18 Start Time 00:02 End Date 02/10/18 End time 01:02 Total Infusion Time 60 Ketorolac Tromethamine (Toradol) 15 mg IVP STAT STA Stop: 02/09/18 20:13 Last Admin: 02/09/18 20:25 Dose: 15 mg MAR Pain Assessment Document 02/09/18 20:25 AD (Rec: 02/09/18 20:25 AD [id number]) Pain Reassessment Is this a pain reassessment? No Presence of Pain Presence of Pain Yes Pain Scale Used Pain Scale Used Numeric Location Upper or Lower Lower Description Intensity of Pain at present 8 IVP Administration Document 02/09/18 20:25 AD (Rec: 02/09/18 20:25 AD [id number]) Charges for Administration # of IVP Administrations 1 Tramadol HCl (Ultram) 50 mg PO STAT STA Stop: 02/09/18 17:45 Last Admin: 02/09/18 18:14 Dose: Not Given Non-Admin Reason: NPO Trazodone HCl (Desyrel) 50 mg PO BID [facility] Last Admin: 02/09/18 23:43 Dose: Disposition/Present on Arrival - Present on Arrival Any Indicators Present on Arrival: No History of DVT/PE: No History of Uncontrolled Diabetes: No Urinary Catheter: No History of Decub. Ulcer: No History Surgical Site Infection Following: None - Disposition Have Diagnosis and Disposition been Completed?: Yes Diagnosis: Atrial fibrillation with rapid ventricular response, Back pain, Elevated troponin Disposition: HOSPITALIZED Disposition Time: 19:32 Patient Plan: Admission, Telemetry Patient Problems: Current Active Problems Problem Status Onset Atrial fibrillation with rapid ventricular response Acute Back pain Acute Elevated troponin Acute Condition: SERIOUS
[2018-02-09 18:20] LABS: BASO # 0.01 K/mm3 (0.0-2.0); BASO % 0.1 % (0.0-3.0); EOS % 0.2 % (1.5-5.0); GRAN # 6.65 (1.4-6.5); HEMOGLOBIN 15.3 g/dL (12.0-16.0); LYMPH # 1.6 (1.2-3.4); LYMPH % 16.4 % (22.0-35.0); MEAN CELL VOLUME 89.2 fl (80.0-105.0); MEAN CORPUSCULAR HEMOGLOBIN 31.1 pg (25.0-35.0); MEAN CORPUSCULAR HGB CONC 34.9 g/dl (31.0-37.0); MEAN PLATELET VOLUME 10.8 fl (7.0-11.0); MONO # 1.6 (0.1-0.6); MONO % 16.3 % (1.0-6.0); RBC 4.92 10^6/uL (3.5-6.1); RED CELL DISTRIBUTION WIDTH 13.8 % (11.5-14.5); WHITE BLOOD COUNT 9.9 10^3/ul (4.5-11.0)
[2018-02-09 18:29] LABS: ALB/GLOB RATIO 1.4 (1.1-1.8); ALBUMIN 4.1 g/dL (3.0-4.8); ALT/SGPT 36 U/L (7-56); AST/SGOT 32 U/L (14-36); BLOOD UREA NITROGEN 22 mg/dL (7-21); CALCIUM 9.4 mg/dL (8.4-10.5); GFR AFRICAN-AMERICAN > 60; GFR NON-AFRICAN AMERICAN > 60
[2018-02-09 18:44] LABS: INR 1.15 (0.93-1.08); PARTIAL THROMBOPLASTIN TIME 32.3 Seconds (25.1-36.5); PROTHROMBIN TIME 13.2 SECONDS (9.4-12.5)
[2018-02-09 18:49] LABS: B-TYPE NATRIURETIC PEPTIDE 18900 pg/mL (0-450)
[2018-02-09 20:52] LABS: URINE BILIRUBIN NEGATIVE (NEGATIVE); URINE BLOOD MODERATE (NEGATIVE); URINE GLUCOSE (UA) NEGATIVE (NEGATIVE); URINE LEUKOCYTE ESTERASE MODERATE Leu/uL (NEGATIVE); URINE PROTEIN 30 mg/dL (<30 mg/dL); URINE UROBILINOGEN 0.2 E.U./dL (<1 E.U./dL)
[2018-02-09 20:53] LABS: URINE APPEARANCE CLOUDY (CLEAR); URINE COLOR YELLOW (YELLOW)
[2018-02-09 21:04] LABS: URINE AMORPHOUS SEDIMENT MODERATE; URINE BACTERIA SMALL (NEG); URINE RBC 25 - 30 /hpf (0-2)
[2018-02-09] MEDS ORDERED: cefTRIAXone 2 GM IN NS 2 GM/100 ML BAG IVPB STA (22:23)
--- NOTE | 2018-02-09 22:46 | CT ---
EXAM: CT Head Without Intravenous Contrast EXAM DATE/TIME: 02/09/2018 5:40 PM CLINICAL HISTORY: The patient age is 77 years old and is female; Signs and symptoms; Speech disturbance; Slurred speech Facility exam id and description: Ct heads head w/o contrast TECHNIQUE: Axial computed tomography images of the head/brain without intravenous contrast. All CT scans at this facility use one or more dose reduction techniques, viz.: automated exposure control; ma/kV adjustment per patient size (including targeted exams where dose is matched to indication; i.e. head); or iterative reconstruction technique. Coronal and sagittal reformatted images were created and reviewed. COMPARISON: CT - HEAD W/O CONTRAST 2017-09-29 19:09 FINDINGS: Brain: Hypodense encephalomalacia is identified in the region of the left insular cortex, which is stable. 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 There are scattered foci/areas of hypodensity within the cerebral white matter, likely representing small vessel ischemic disease in a patient this age. The acuity of the white matter disease is indeterminate. The white-palomino differentiation is otherwise preserved demonstrating no acute territorial type infarct. No acute intracranial hemorrhage is seen. Midline shift: There is no midline shift. Ventricles: There is moderate prominence of the ventricles and sulci, compatible with atrophy. Bones/joints: The calvarium demonstrates no evidence for a depressed fracture. Hyperostosis frontalis interna. Soft tissues: No acute abnormality. Vasculature: There is atherosclerotic calcification of the intracranial internal carotid arteries and distal vertebral arteries. Sinuses: There is opacification of a left ethmoid air cell. A mucous retention cyst or polyp is identified in the right sphenoid sinus. Mastoid air cells: No mastoid effusion. IMPRESSION: 1. No acute intracranial hemorrhage or acute territorial type infarct. 2. Hypodense encephalomalacia is identified in the region of the left insular cortex, which is stable. 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 3. There are scattered foci/areas of hypodensity within the cerebral white matter, likely representing small vessel ischemic disease in a patient this age. 4. Moderate atrophy. 5. Paranasal sinus disease is noted above. 6. If further evaluation is clinically indicated, an MRI of the brain is recommended.
--- NOTE | 2018-02-09 22:56 | CT ---
EXAM: CT Abdomen and Pelvis Without Intravenous Contrast EXAM DATE/TIME: 02/09/2018 6:28 PM CLINICAL HISTORY: The patient age is 77 years old and is female; Pain; Abdominal pain; Acute; Additional info: Flank pain Facility exam id and description: Ct abdpelscon abd pelvis w/o po or iv cont TECHNIQUE: Axial computed tomography images of the abdomen and pelvis without intravenous contrast. All CT scans at this facility use one or more dose reduction techniques, viz.: automated exposure control; ma/kV adjustment per patient size (including targeted exams where dose is matched to indication; i.e. head); or iterative reconstruction technique. Coronal and sagittal reformatted images were created and reviewed. COMPARISON: CR - HIP NYDIA W/WO PELVIS 2 VIEWS 2015-12-30 16:32 FINDINGS: Artifacts: Streaking artifact limits evaluation of the lower pelvis. Lung bases: No mass. No consolidation. Pleural space: Small bilateral pleural effusions are identified. Atelectatic changes are seen at the lung bases. Patchy nonspecific groundglass density is identified in the right middle lobe. ABDOMEN: Liver: There is hypodense fatty infiltration of the liver. Gallbladder and bile ducts: There is extrahepatic biliary dilatation. The common bile duct measures 1.3 cm in diameter. Surgical clips are identified within the gallbladder fossa, compatible with cholecystectomy. Pancreas: There is atrophy of the pancreas. Spleen: No splenomegaly. Adrenals: No mass. Kidneys and ureters: Nonspecific right perinephric stranding is visualized. There is no right hydronephrosis. No obstructive calculi are identified within the right ureter. The left kidney is absent. Stomach and bowel: Colonic diverticula are identified, without acute inflammatory stranding of the adjacent mesentery. PELVIS: Appendix: No findings to suggest acute appendicitis. Bladder: A Whitehead catheter and gas are visualized within the bladder, which is decompressed. This gas is presumed to be iatrogenic. No stones. Reproductive: The uterus is absent. ABDOMEN and PELVIS: Intraperitoneal space: No free air. Bones/joints: Postoperative changes are identified with a right hip prosthesis. Hypertrophic degenerative changes are noted within the spine. There is grade I anterolisthesis of L5 on S1. Soft tissues: Within the medial left breast, there is a 3.6 x 2.1 cm mass. Malignancy is the diagnosis of exclusion. Multiple calcifications are identified within the bilateral breast. Vasculature: There is atherosclerotic calcification of the abdominal aorta and iliac arteries. No abdominal aortic aneurysm. Lymph nodes: There is no significant retroperitoneal or intrapelvic lymphadenopathy. IMPRESSION: 1. There is hypodense fatty infiltration of the liver. 2. There is extrahepatic biliary dilatation. The common bile duct measures 1.3 cm in diameter. Cholecystectomy. 3. Nonspecific right perinephric stranding is visualized. Pyelonephritis cannot be excluded. There is no right hydronephrosis. No obstructive calculi are identified within the right ureter. Clinical correlation is recommended. 4. Within the medial left breast, there is a 3.6 x 2.1 cm mass. Malignancy is the diagnosis of exclusion. Further clinical evaluation is recommended. 5. Diverticulosis. 6. Small bilateral pleural effusions are identified. Atelectatic changes are seen at the lung bases. Patchy nonspecific groundglass density is identified in the right middle lobe. 7. Additional CT findings described above.
[2018-02-09] MEDS ORDERED: Divalproex 250 mg DR (BID formulation) PO SCH (23:00)
--- NOTE | 2018-02-09 23:36 | CP.PCM.HP ---
<Esvin Ruiz - Last Filed: 02/09/18 23:07> History of Present Illness - History of Present Illness History of Present Illness: H&P: Dr. Gordon Chief Complaint: Altered Mental Status HPI: 77 year old female with pertinent past medical history of Dementia and A-fib presenting with her daughters for altered mental status. History from patient is limited 2/2 mental status, but daughters are at bedside providing history. Patient's daughters state that the patient has been feeling short of breath for the past couple of days to the point of using her 's oxygen, and that today she just seemed not herself. They repeated several times that patient has no quality of life and that she does not want any life saving intervention anymore. Patient has a history of urinary incontinence. Review of Systems: 12 point ROS obtained, but limited 2/2 patient's mental status Surgical History: Hysterectomy and b/l salpingo-oophorectomy for early uterine cancer, left nephrectomy, Right hip arthoplasty, cholecystectomy Medical History: Dementia, afib, HTN, HLD, DM, COPD, hypothyroidism, saddle pulmonary embolus, and TIA Allergies: All anticoagulants/antiplatelets, and most antihypertenstives, as well as lasix Social History: Prior smoker, quit 3 years ago. Denies alcohol or illicits. Home Meds: Reviewed, see DEC FHx: AMI PMD: Dr. Sales Present on Admission - Present on Admission Any Indicators Present on Admission: Yes History of DVT/PE: Yes Past Patient History - Infectious Disease Hx of Infectious Diseases: None - Tetanus Immunizations Tetanus Immunization: Unknown - Past Social History Smoking Status: Never Smoked - CARDIAC Hx Atrial Fibrillation: Yes Hx Cardia Arrhythmia: Yes (A-Fib) Hx Hypertension: Yes - PULMONARY Hx Chronic Obstructive Pulmonary Disease (COPD): Yes Hx Pulmonary Embolism: Yes - NEUROLOGICAL Hx Dementia: Yes Hx Seizures: No - HEENT Hx HEENT Problems: Yes Hx Cataracts: Yes Hx Macular Degeneration: Yes (R blind, L shadows) - RENAL Hx Chronic Kidney Disease: Yes - ENDOCRINE/METABOLIC Hx Hypothyroidism: Yes - HEMATOLOGICAL/ONCOLOGICAL Hx AIDS: No Hx Blood Transfusions: No - INTEGUMENTARY Hx Dermatological Problems: No - MUSCULOSKELETAL/RHEUMATOLOGICAL Hx Arthritis: Yes Hx Fractures: Yes (RHIP, PELVIS) - GASTROINTESTINAL Hx Diverticulitis: Yes Hx Gall Bladder Disease: Yes - GENITOURINARY/GYNECOLOGICAL Hx Sexually Transmitted Disorders: No - PSYCHIATRIC Hx Physical Abuse: No Hx Sexual Abuse: No Hx Substance Use: No - SURGICAL HISTORY Hx Cholecystectomy: Yes - ANESTHESIA Hx Anesthesia: Yes Hx Anesthesia Reactions: No Hx Malignant Hyperthermia: No Meds Allergies/Adverse Reactions: Allergies Allergy/AdvReac Type Severity Reaction Status Date / Time codeine Allergy NAUSEA Verified 12/06/17 14:41 iodine Allergy RASH Verified 12/06/17 14:41 levofloxacin [From Levaquin] Allergy VOMITING Verified 12/06/17 14:41 meperidine HCl [From Demerol] Allergy VOMITING Verified 12/06/17 14:41 morphine Allergy SHORTNESS Verified 12/06/17 14:41 OF BREATH pentazocine lactate Allergy DIZZINESS Verified 12/06/17 14:41 [From Talwin] pencillin Allergy SHORTNESS Uncoded 02/09/18 22:57 OF BREATH Blood Thinners AdvReac VOMITING Uncoded 02/09/18 22:42 Physical Exam - Constitutional Appears: Non-toxic, Chronically Ill - Head Exam Head Exam: ATRAUMATIC, NORMAL INSPECTION, NORMOCEPHALIC - Eye Exam Eye Exam: EOMI, Normal appearance, PERRL Pupil Exam: NORMAL ACCOMODATION, PERRL - ENT Exam ENT Exam: Mucous Membranes Moist, Normal Exam - Neck Exam Neck exam: Positive for: Normal Inspection - Respiratory Exam Respiratory Exam: Decreased Breath Sounds, Rales - Cardiovascular Exam Cardiovascular Exam: Tachycardia, Irregular Rhythm - GI/Abdominal Exam GI & Abdominal Exam: Normal Bowel Sounds, Soft. absent: Tenderness - Extremities Exam Extremities exam: Positive for: normal inspection - Back Exam Back exam: NORMAL INSPECTION - Neurological Exam Neurological exam: Altered, CN II-XII Intact, Normal Gait, Reflexes Normal - Psychiatric Exam Psychiatric exam: Normal Affect, Normal Mood - Skin Skin Exam: Dry, Intact, Normal Color, Warm Results - Vital Signs Recent Vital Signs: Last Vital Signs Temp 99.6 F 02/09/18 20:00 Pulse 131 H 02/09/18 21:00 Resp 18 02/09/18 21:00 BP 123/76 02/09/18 21:00 Pulse Ox 95 02/09/18 21:00 - Labs Result Diagrams: 02/09/18 17:30 02/09/18 17:30 Labs: Laboratory Results - last 24 hr 02/09/18 20:46 Urine Color Yellow Urine Appearance Cloudy Urine pH 6.0 Ur Specific [place] 1.025 Urine Protein 30 H Urine Glucose (UA) Negative Urine Ketones Trace H Urine Blood Moderate H Urine Nitrate Positive H Urine Bilirubin Negative Urine Urobilinogen 0.2 Ur Leukocyte Esterase Moderate H Urine RBC 25 - 30 Urine WBC 10 - 15 Ur Epithelial Cells 10 - 12 Amorphous Sediment Moderate Urine Bacteria Small Assessment & Plan - Assessment and Plan (Free Text) Assessment: 77 yo F with pertinent medical history of COPD, Saddle PE, Dementia, and A-fib presents with altered mental status and progressive shortness of breath in the past few days. Head CT in the ED ruled out any acute process. Patient was on 2L nasal cannula satting at 95%. BNP is severely elevated at 18,900 and CXR as read by me shows pulmonary vascular congestion but with sharp costophrenic angles - patient stated on previous admission that she is "allergic" to Lasix. Patient also showed a positive troponin indicative of NSTEMI. Patient and her daughters have expressly denied any anticoagulation, any life saving therapy, and patient is denying any pain at present. Finally, patient was found to be in A-Fib with RVR in the ED. Cardizem bolus was given in ED with drip initiated. Plan Elevated Troponin, likely 2/2 NSTEMI - Cardiology consult requested, appreciate recs - Patient is refusing any therapy - no point in EKG, Troponin series, and explicitly refused any heparin drip Shortness of Breath, likely 2/2 CHF Exacerbation - HCTZ 25 daily (patient refusing lasix) - NC 2L - Patient denying anticoagulation, so no point in CTA Chest or Duplex Atrial Fibrillation with RVR - Cardizem drip - Patient refusing any anticoagulation Hypothyroidism - Resume home synthroid - TSH and free T4 Hypertension - No home meds Diabetes - Hold home medications - RISS Medium with Accuchecks ACHS Chronic Pain - Continue Pregabalin and Tramadol GI/DVT Prophylaxis - Protonix/SCD <Ascencion Gordon - Last Filed: 02/10/18 03:39> Results - Vital Signs Recent Vital Signs: Last Vital Signs Temp 99.6 F 02/09/18 20:00 Pulse 93 H 02/10/18 02:00 Resp 19 02/10/18 00:17 BP 115/89 02/09/18 22:00 Pulse Ox 100 02/09/18 22:00 - Labs Result Diagrams: 02/09/18 17:30 02/09/18 17:30 Labs: Laboratory Results - last 24 hr 02/09/18 20:46 Urine Color Yellow Urine Appearance Cloudy Urine pH 6.0 Ur Specific [place] 1.025 Urine Protein 30 H Urine Glucose (UA) Negative Urine Ketones Trace H Urine Blood Moderate H Urine Nitrate Positive H Urine Bilirubin Negative Urine Urobilinogen 0.2 Ur Leukocyte Esterase Moderate H Urine RBC 25 - 30 Urine WBC 10 - 15 Ur Epithelial Cells 10 - 12 Amorphous Sediment Moderate Urine Bacteria Small Attending/Attestation - Attestation I have personally seen and examined this patient.: Yes I have fully participated in the care of the patient.: Yes I have reviewed all pertinent clinical information: Yes Notes (Text): 02/10/18 03:38 Patient was seen when she was in the ER in bed # &. Medical record was reviewed. Agree with history, physical examination, assessment and plan.
[2018-02-10] MEDS: diltiaZEM IVPB 100mg in NS 100 ML IV PRN ×4 (00:11→21:18)
[2018-02-10] MEDS: Levothyroxine 125 MCG TAB PO SCH (05:14)
[2018-02-10] MEDS: Pantoprazole 40 mg EC Tab PO SCH (05:14)
[2018-02-10 06:41] LABS: BASO # 0.01 K/mm3 (0.0-2.0); BASO % 0.1 % (0.0-3.0); EOS % 0.1 % (1.5-5.0); GRAN # 5.22 (1.4-6.5); GRAN % 63.3 % (50.0-68.0); HEMOGLOBIN 14.1 g/dL (12.0-16.0); LYMPH # 1.6 (1.2-3.4); LYMPH % 19.1 % (22.0-35.0); MEAN CORPUSCULAR HEMOGLOBIN 30.8 pg (25.0-35.0); MEAN CORPUSCULAR HGB CONC 34.2 g/dl (31.0-37.0); MEAN PLATELET VOLUME 10.1 fl (7.0-11.0); MONO # 1.4 (0.1-0.6); MONO % 17.4 % (1.0-6.0); RBC 4.58 10^6/uL (3.5-6.1); RED CELL DISTRIBUTION WIDTH 13.9 % (11.5-14.5); WHITE BLOOD COUNT 8.3 10^3/ul (4.5-11.0)
[2018-02-10 06:52] LABS: ALB/GLOB RATIO 1.2 (1.1-1.8); ALBUMIN 3.5 g/dL (3.0-4.8); ALT/SGPT 28 U/L (7-56); AST/SGOT 27 U/L (14-36); BLOOD UREA NITROGEN 26 mg/dL (7-21); CALCIUM 8.9 mg/dL (8.4-10.5); GFR AFRICAN-AMERICAN > 60; GFR NON-AFRICAN AMERICAN > 60
[2018-02-10] MEDS: Insulin Reg-MEDIUM-Coverage SC SCH ×4 (08:02→22:07)
--- NOTE | 2018-02-10 08:53 | RAD ---
HISTORY: Shortness breath. COMPARISON: 12/06/2017 FINDINGS: LUNGS: No active pulmonary disease. PLEURA: No significant pleural effusion identified, no pneumothorax apparent. CARDIOVASCULAR: No radiographic findings to suggest acute or significant cardiovascular disease. OSSEOUS STRUCTURES: No significant abnormalities. VISUALIZED UPPER ABDOMEN: Normal. OTHER FINDINGS: None. IMPRESSION: No active disease. No significant interval change compared to the prior examination(s).
--- NOTE | 2018-02-10 09:01 | RAD ---
PROCEDURE: Radiographs of the Lumbar Spine. HISTORY: severe low back pain COMPARISON: No prior. FINDINGS: BONES: Diffuse osteopenia. No fractures identified. DISC SPACES: Unremarkable. OTHER FINDINGS: Calcified nonaneurysmal abdominal aorta. IMPRESSION: No significant or acute findings to account for/ related to the clinical presentation. Additional benign and/or incidental findings described above.
[2018-02-10] MEDS ORDERED: Magnesium Sulfate 2 GM in Sodium Chloride 0.9% 100 ML IVPB ONE (09:46)
--- NOTE | 2018-02-10 10:53 | CP.PCM.PN ---
<Messi Anthony - Last Filed: 02/10/18 13:51> Subjective - Date & Time of Evaluation Date of Evaluation: 02/10/18 Time of Evaluation: 10:00 - Subjective Subjective: Subjective: Patient seen and examined at bedside. Resting comfortably in bed. No acute overnight events. Patient family at bedside. Requests comfort care at this time. All questions are thoroughly addressed. Offers no new complaints at this time. 12-point review of systems cannot be ascertained at this time due to altered mental status Physical Examination: - Constitutional Appears: Non-toxic, Chronically Ill - Head Exam Head Exam: ATRAUMATIC, NORMAL INSPECTION, NORMOCEPHALIC - ENT Exam ENT Exam: Mucous Membranes Dry - Neck Exam Neck exam: Positive for: Normal Inspection - Respiratory Exam Respiratory Exam: Decreased Breath Sounds - Cardiovascular Exam Cardiovascular Exam: Irregular Rhythm - GI/Abdominal Exam GI & Abdominal Exam: Normal Bowel Sounds, Soft. absent: Tenderness - Extremities Exam Extremities exam: Positive for: normal inspection - Neurological Exam Neurological exam: can be awakened, responds to verbal stimuli - Psychiatric Exam Psychiatric exam: Normal Affect, Normal Mood - Skin Skin Exam: Dry, Intact, Normal Color, Warm Assessment and Plan: Patient is a 77 yo F with a past medical history of COPD, Saddle PE, Dementia, and A-fib who presents to the ED for evaluation and treatment for altered mental status and progressive shortness of breath. AMS CT of Head: 1. No acute intracranial hemorrhage or acute territorial type infarct. 2. Hypodense encephalomalacia is identified in the region of the left insular cortex, which is stable. 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 3. There are scattered foci/areas of hypodensity within the cerebral white matter, likely representing small vessel ischemic disease in a patient this age. 4. Moderate atrophy. 5. Paranasal sinus disease is noted above - swallow eval - no acute intervention at this time Elevated Troponin, likely 2/2 NSTEMI - Cardiology consult requested, appreciate recs - anticoagulation cannot be started as patient is allergic to all available therapies Shortness of Breath, likely 2/2 CHF Exacerbation - BNP 18,900 - HCTZ 25 daily, lasix cannot be given as patient is allergic - oxygen supplementation- NC 2L Atrial Fibrillation with RVR - Cardizem drip - Patient refusing any anticoagulation UTI - continue rocephin Hypothyroidism - Resume home synthroid Hypertension - No home meds Diabetes - Hold home medications - ISS Medium with Accuchecks ACHS Chronic Pain - Continue Pregabalin GI/DVT Prophylaxis - Protonix/SCD Dispo: Awaiting hospice evaluation. Patient's family is requesting comfort care. Patient seen, case discussed with, and plan approved by attending physician, Dr. Davidson. Objective - Vital Signs/Intake and Output Vital Signs (last 24 hours): Temp Pulse Resp BP Pulse Ox 98.0 F 92 H 20 127/88 99 02/10/18 05:56 02/10/18 05:57 02/10/18 05:56 02/10/18 05:56 02/10/18 05:56 Intake and Output: 02/10/18 02/10/18 06:59 18:59 Intake Total 415 Output Total 700 Balance -285 - Medications Medications: Current Medications Aspirin (Ecotrin) 81 mg PO DAILY [facility] Last Admin: 02/10/18 10:33 Dose: Not Given Hydrochlorothiazide (Hydrodiuril) 25 mg PO DAILY [facility] Last Admin: 02/10/18 10:33 Dose: Not Given Ceftriaxone Sodium (Rocephin 1 Gram Ivpb) 1 gm in 100 mls @ 100 mls/hr IVPB DAILY [facility] PRN Reason: Protocol diltiaZEM IVPB 100mg in NS (Cardizem 100mg In Ns) 100 mls @ 15 mls/hr IV .Q6H40M PRN; Protocol; 15 MG/HR PRN Reason: TITRATE PER MD ORDER Last Admin: 02/10/18 07:21 Dose: 15 mg/hr, 15 mls/hr Valproate Sodium 250 mg/ (Sodium Chloride) 52.5 mls @ 52.5 mls/hr IVPB BID [facility] Last Admin: 02/10/18 01:51 Dose: 52.5 mls/hr Magnesium Sulfate 2 gm/ Sodium (Chloride) 104 mls @ 102 mls/hr IVPB ONCE ONE Stop: 02/10/18 10:47 Sodium Chloride (Sodium Chloride 0.9%) 1,000 mls @ 30 mls/hr IV .Q24H [facility] Stop: 02/11/18 10:00 Insulin Human Regular (Humulin R Med) 0 units SC ACHS [facility] PRN Reason: Protocol Last Admin: 02/10/18 08:02 Dose: Not Given Levothyroxine Sodium (Synthroid) 125 mcg PO 0600 [facility] Last Admin: 02/10/18 05:14 Dose: Not Given Pantoprazole Sodium (Protonix Ec Tab) 40 mg PO 0600 [facility] Last Admin: 02/10/18 05:14 Dose: Not Given Pregabalin (Lyrica) 50 mg PO BID [facility] Last Admin: 02/10/18 10:33 Dose: Not Given Tramadol HCl (Ultram) 50 mg PO TID [facility] Last Admin: 02/10/18 10:33 Dose: Not Given Trazodone HCl (Desyrel) 100 mg PO HS [facility] Last Admin: 02/10/18 00:00 Dose: Not Given - Labs Labs: 02/10/18 06:15 02/10/18 06:15 PT 13.2 SECONDS (9.4-12.5) H 02/09/18 17:30 INR 1.15 (0.93-1.08) H 02/09/18 17:30 APTT 32.3 Seconds (25.1-36.5) 02/09/18 17:30 <Zachariah Davidson - Last Filed: 02/10/18 15:58> Objective - Vital Signs/Intake and Output Vital Signs (last 24 hours): Temp Pulse Resp BP Pulse Ox 98.5 F 101 H 20 123/77 99 02/10/18 12:00 02/10/18 12:00 02/10/18 12:00 02/10/18 12:00 02/10/18 05:56 Intake and Output: 02/10/18 02/10/18 06:59 18:59 Intake Total 415 100 Output Total 700 Balance -285 100 - Medications Medications: Current Medications Aspirin (Ecotrin) 81 mg PO DAILY [facility] Last Admin: 02/10/18 10:33 Dose: Not Given Hydrochlorothiazide (Hydrodiuril) 25 mg PO DAILY [facility] Last Admin: 02/10/18 10:33 Dose: Not Given Ceftriaxone Sodium (Rocephin 1 Gram Ivpb) 1 gm in 100 mls @ 100 mls/hr IVPB DAILY [facility] PRN Reason: Protocol Last Admin: 02/10/18 12:05 Dose: 100 mls/hr diltiaZEM IVPB 100mg in NS (Cardizem 100mg In Ns) 100 mls @ 15 mls/hr IV .Q6H40M PRN; Protocol; 15 MG/HR PRN Reason: TITRATE PER MD ORDER Last Admin: 02/10/18 14:23 Dose: 15 mg/hr, 15 mls/hr Valproate Sodium 250 mg/ (Sodium Chloride) 52.5 mls @ 52.5 mls/hr IVPB BID [facility] Last Admin: 02/10/18 11:18 Dose: 52.5 mls/hr Sodium Chloride (Sodium Chloride 0.9%) 1,000 mls @ 30 mls/hr IV .Q24H [facility] Stop: 02/11/18 10:00 Last Admin: 02/10/18 11:18 Dose: 30 mls/hr Insulin Human Regular (Humulin R Med) 0 units SC ACHS [facility] PRN Reason: Protocol Last Admin: 02/10/18 12:07 Dose: Not Given Ketorolac Tromethamine (Toradol) 15 mg IVP Q8H PRN PRN Reason: Pain, moderate (4-7) Levothyroxine Sodium (Synthroid) 125 mcg PO 0600 [facility] Last Admin: 02/10/18 05:14 Dose: Not Given Pantoprazole Sodium (Protonix Ec Tab) 40 mg PO 0600 [facility] Last Admin: 02/10/18 05:14 Dose: Not Given Pregabalin (Lyrica) 50 mg PO BID [facility] Last Admin: 02/10/18 10:33 Dose: Not Given Trazodone HCl (Desyrel) 100 mg PO [facility] Last Admin: 02/10/18 00:00 Dose: Not Given - Labs Labs: 02/10/18 06:15 02/10/18 06:15 PT 13.2 SECONDS (9.4-12.5) H 02/09/18 17:30 INR 1.15 (0.93-1.08) H 02/09/18 17:30 APTT 32.3 Seconds (25.1-36.5) 02/09/18 17:30 Attending/Attestation - Attestation I have personally seen and examined this patient.: Yes I have fully participated in the care of the patient.: Yes I have reviewed all pertinent clinical information, including history, physical exam and plan: Yes Notes (Text): 02/10/18 15:32 Attending note; Patient seen and examined with resident. Patient is lethargic. History from patient's daughters. Patient is a 77 year old female with pertinent past medical history of Dementia , pulmonary embolus , atrial fibrillation, urinary incontinence , diabetes, bed bound and A-fib presenting with her daughters for altered mental status. Patient is not on any anticoagulation secondary to allergy and refusal. Patient had rapid A. fib. Currently on IV Cardizem. elevated troponin. On aspirin. Patient's family refused anticoagulation. Cardiology evaluation requested. Patient has multiple drug allergies including codeine, levofloxacin, meperidine , morphine, penicillin. The exact allergic reaction not known. Only pain medication option is IV toradol. Possible UTI; CT scan showed possible right perinephric stranding. Continue Rocephin. Patient is tolerating. Ct scan also showed left breast mass. Family is aware of the mass. Did not get any workup done as outpatient. Dementia/behavioral issues; psychiatric evaluation requested to adjust medication. Case discussed with palliative care consult in detail. Patient's family is considering hospice. fruit worker evaluation appreciated. Family to make decision about discharge plan and treatment options. Patient is DNR/DNI. Prognosis is poor.
[2018-02-10] MEDS: Sodium Chloride 0.9% 1,000 ML IV SCH (11:18)
[2018-02-10] MEDS: cefTRIAXone 1 gm 1 GM/100 ML BAG IVPB SCH (12:05)
--- NOTE | 2018-02-10 14:14 | CP.PCM.CON ---
History of Present Illness - History of Present Illness History of Present Illness: Palliative consult requested by Dr Valerie Davidson Reason: Goals of care 77 year old female with history of dementia, COPD, DM, HTN and atrial fibrillation who presented with weakness, difficulty swallowing and generalized pain. Family reports patients condition has been deteriorating, she primarily bed bound and her appetite is family. Family also reports she has had intermittent bouts of diarrhea over the past year. CT of head showed microvascular changes,encephalomalacia,atrophy, no acute abnormality. CT of abdomen/pelvis. Labs; CBC> WNL, BUN 26, creta 0.8, troponin .83, urine positive for nittate and leukocytes. PMHx: dementia with behavioral disturbances, HLD, HTN, COPD, DM, hypothyrodism, saddle embolism, TIA,uterine cancer. PSH: TAHBO, left nephrectomy, cholecystectomy. Social History: Former smoker, no alcohol or drug use. lives with spouse Advance Care Planning: The patient has an Advanced Directive, she is DNR/DNI. Her is her POA. Review of Systems: as per HPI, the patient is a poor historian Past Patient History - Infectious Disease Hx of Infectious Diseases: None - Tetanus Immunizations Tetanus Immunization: Unknown - Past Social History Smoking Status: Never Smoked - CARDIAC Hx Atrial Fibrillation: Yes Hx Cardia Arrhythmia: Yes (A-Fib) Hx Hypertension: Yes - PULMONARY Hx Chronic Obstructive Pulmonary Disease (COPD): Yes Hx Pulmonary Embolism: Yes - NEUROLOGICAL Hx Dementia: Yes Hx Seizures: No - HEENT Hx HEENT Problems: Yes Hx Cataracts: Yes Hx Macular Degeneration: Yes (R blind, L shadows) - RENAL Hx Chronic Kidney Disease: Yes - ENDOCRINE/METABOLIC Hx Hypothyroidism: Yes - HEMATOLOGICAL/ONCOLOGICAL Hx AIDS: No Hx Blood Transfusions: No - INTEGUMENTARY Hx Dermatological Problems: No - MUSCULOSKELETAL/RHEUMATOLOGICAL Hx Arthritis: Yes Hx Fractures: Yes (RHIP, PELVIS) - GASTROINTESTINAL Hx Diverticulitis: Yes Hx Gall Bladder Disease: Yes - GENITOURINARY/GYNECOLOGICAL Hx Sexually Transmitted Disorders: No - PSYCHIATRIC Hx Physical Abuse: No Hx Sexual Abuse: No Hx Substance Use: No - SURGICAL HISTORY Hx Cholecystectomy: Yes - ANESTHESIA Hx Anesthesia: Yes Hx Anesthesia Reactions: No Hx Malignant Hyperthermia: No Meds Allergies/Adverse Reactions: Allergies Allergy/AdvReac Type Severity Reaction Status Date / Time codeine Allergy NAUSEA Verified 12/06/17 14:41 iodine Allergy RASH Verified 12/06/17 14:41 levofloxacin [From Levaquin] Allergy VOMITING Verified 12/06/17 14:41 meperidine HCl [From Demerol] Allergy VOMITING Verified 12/06/17 14:41 morphine Allergy SHORTNESS Verified 12/06/17 14:41 OF BREATH pentazocine lactate Allergy DIZZINESS Verified 12/06/17 14:41 [From Talwin] pencillin Allergy SHORTNESS Uncoded 02/09/18 22:57 OF BREATH Blood Thinners AdvReac VOMITING Uncoded 02/09/18 22:42 - Medications Medications: Current Medications Aspirin (Ecotrin) 81 mg PO DAILY [facility] Last Admin: 02/10/18 10:33 Dose: Not Given Hydrochlorothiazide (Hydrodiuril) 25 mg PO DAILY [facility] Last Admin: 02/10/18 10:33 Dose: Not Given Ceftriaxone Sodium (Rocephin 1 Gram Ivpb) 1 gm in 100 mls @ 100 mls/hr IVPB DAILY [facility] PRN Reason: Protocol Last Admin: 02/10/18 12:05 Dose: 100 mls/hr diltiaZEM IVPB 100mg in NS (Cardizem 100mg In Ns) 100 mls @ 15 mls/hr IV .Q6H40M PRN; Protocol; 15 MG/HR PRN Reason: TITRATE PER MD ORDER Last Admin: 02/10/18 07:21 Dose: 15 mg/hr, 15 mls/hr Valproate Sodium 250 mg/ (Sodium Chloride) 52.5 mls @ 52.5 mls/hr IVPB BID [facility] Last Admin: 02/10/18 11:18 Dose: 52.5 mls/hr Sodium Chloride (Sodium Chloride 0.9%) 1,000 mls @ 30 mls/hr IV .Q24H [facility] Stop: 02/11/18 10:00 Last Admin: 02/10/18 11:18 Dose: 30 mls/hr Insulin Human Regular (Humulin R Med) 0 units SC ACHS [facility] PRN Reason: Protocol Last Admin: 02/10/18 12:07 Dose: Not Given Levothyroxine Sodium (Synthroid) 125 mcg PO 0600 [facility] Last Admin: 02/10/18 05:14 Dose: Not Given Pantoprazole Sodium (Protonix Ec Tab) 40 mg PO 0600 [facility] Last Admin: 02/10/18 05:14 Dose: Not Given Pregabalin (Lyrica) 50 mg PO BID [facility] Last Admin: 02/10/18 10:33 Dose: Not Given Tramadol HCl (Ultram) 50 mg PO TID [facility] Last Admin: 02/10/18 10:33 Dose: Not Given Trazodone HCl (Desyrel) 100 mg PO HS [facility] Last Admin: 02/10/18 00:00 Dose: Not Given Physical Exam - Constitutional Appears: Chronically Ill - Head Exam Head Exam: NORMOCEPHALIC - Eye Exam Eye Exam: Normal appearance, PERRL - ENT Exam ENT Exam: Mucous Membranes Moist, Normal Oropharynx - Neck Exam Neck exam: Positive for: Normal Inspection - Respiratory Exam Respiratory Exam: Decreased Breath Sounds, NORMAL BREATHING PATTERN - Cardiovascular Exam Cardiovascular Exam: REGULAR RHYTHM, +S1, +S2 - GI/Abdominal Exam GI & Abdominal Exam: Normal Bowel Sounds, Soft Additional comments: no guarding - Extremities Exam Extremities exam: Positive for: normal capillary refill, pedal pulses present - Back Exam Back exam: vertebral tenderness - Neurological Exam Neurological exam: Alert Additional comments: confused at times - Psychiatric Exam Psychiatric exam: Anxious - Skin Skin Exam: Dry, Pallor - Additional Findings Additional findings: palliative performance scale rating, 40% Results - Vital Signs Recent Vital Signs: Last Vital Signs Temp 98.5 F 02/10/18 12:00 Pulse 101 H 02/10/18 12:00 Resp 20 02/10/18 12:00 BP 123/77 02/10/18 12:00 Pulse Ox 99 02/10/18 05:56 - Labs Result Diagrams: 02/10/18 06:15 02/10/18 06:15 Labs: Laboratory Results - last 24 hr 02/09/18 02/10/18 02/10/18 20:46 06:15 06:15 WBC 8.3 RBC 4.58 Hgb 14.1 Hct 41.2 MCV 90.0 MCH 30.8 MCHC 34.2 RDW 13.9 Plt Count 146 MPV 10.1 Gran % 63.3 Lymph % (Auto) 19.1 L Ocean % (Auto) 17.4 H Eos % (Auto) 0.1 L Baso % (Auto) 0.1 Gran # 5.22 Lymph # (Auto) 1.6 Ocean # (Auto) 1.4 H Eos # (Auto) 0.0 Baso # (Auto) 0.01 Sodium Potassium Chloride Carbon Dioxide Anion Gap BUN Creatinine Est GFR ( Amer) Est GFR (Non-Af Amer) POC Glucose (mg/dL) Random Glucose Calcium Phosphorus Magnesium Total Bilirubin AST ALT Alkaline Phosphatase Troponin I Total Protein Albumin Globulin Albumin/Globulin Ratio Total T3 TSH 3rd Generation 0.36 L Urine Color Yellow Urine Appearance Cloudy Urine pH 6.0 Ur Specific [place] 1.025 Urine Protein 30 H Urine Glucose (UA) Negative Urine Ketones Trace H Urine Blood Moderate H Urine Nitrate Positive H Urine Bilirubin Negative Urine Urobilinogen 0.2 Ur Leukocyte Esterase Moderate H Urine RBC 25 - 30 Urine WBC 10 - 15 Ur Epithelial Cells 10 - 12 Amorphous Sediment Moderate Urine Bacteria Small 02/10/18 02/10/18 02/10/18 06:15 06:15 07:00 WBC RBC Hgb Hct MCV MCH MCHC RDW Plt Count MPV Gran % Lymph % (Auto) Ocean % (Auto) Eos % (Auto) Baso % (Auto) Gran # Lymph # (Auto) Ocean # (Auto) Eos # (Auto) Baso # (Auto) Sodium 140 Potassium 3.9 Chloride 97 L Carbon Dioxide 28 Anion Gap 19 BUN 26 H Creatinine 0.8 Est GFR ( Amer) > 60 Est GFR (Non-Af Amer) > 60 POC Glucose (mg/dL) Random Glucose 158 H Calcium 8.9 Phosphorus 4.6 H Magnesium 1.6 L Total Bilirubin 1.0 AST 27 ALT 28 Alkaline Phosphatase 64 Troponin I 0.83 H* D Total Protein 6.5 Albumin 3.5 Globulin 3.0 Albumin/Globulin Ratio 1.2 Total T3 0.68 L TSH 3rd Generation Urine Color Urine Appearance Urine pH Ur Specific [place] Urine Protein Urine Glucose (UA) Urine Ketones Urine Blood Urine Nitrate Urine Bilirubin Urine Urobilinogen Ur Leukocyte Esterase Urine RBC Urine WBC Ur Epithelial Cells Amorphous Sediment Urine Bacteria 02/10/18 02/10/18 07:32 11:20 WBC RBC Hgb Hct MCV MCH MCHC RDW Plt Count MPV Gran % Lymph % (Auto) Ocean % (Auto) Eos % (Auto) Baso % (Auto) Gran # Lymph # (Auto) Ocean # (Auto) Eos # (Auto) Baso # (Auto) Sodium Potassium Chloride Carbon Dioxide Anion Gap BUN Creatinine Est GFR ( Amer) Est GFR (Non-Af Amer) POC Glucose (mg/dL) 152 H 151 H Random Glucose Calcium Phosphorus Magnesium Total Bilirubin AST ALT Alkaline Phosphatase Troponin I Total Protein Albumin Globulin Albumin/Globulin Ratio Total T3 TSH 3rd Generation Urine Color Urine Appearance Urine pH Ur Specific [place] Urine Protein Urine Glucose (UA) Urine Ketones Urine Blood Urine Nitrate Urine Bilirubin Urine Urobilinogen Ur Leukocyte Esterase Urine RBC Urine WBC Ur Epithelial Cells Amorphous Sediment Urine Bacteria Assessment & Plan - Assessment and Plan (Free Text) Assessment: 77 year old female with with history of atrial fibrillation,dementia with behavioral disorder, COPD, who was admitted with weakness, difficulty swallowing , diffuse body pain and decreased appetite The patient is alert, oriented to place and self. She states she is DNR/DNI. She states that she is ready to I met with patient's and daughters. Family affirms that the patient is DNR/DNI. Family concerned about patients rapid decline in functional status. Family interested in hospice services. Hospice services explained in detail, questions answered. Family having difficulty accepting that patients is health is declining rapidly and that they aren't able to do anything about it. Reassured. Psychosocial support given Family to meet with [facility] lia[facility] hosp[facility] later today Time spent in goals of care and advance care planning discussion, 30 minutes Plan: Toradol 15mg IV now. May consider trailing Fentanyl transdermal patch. Behavioral disturbance: Continue Valproate Sodium and Trazadone. Psych consult for further recommendations Dysphagia:Speech and swallow evaluation Goals of care, advance care planning: DNR/DNI Hospice evaluation
--- NOTE | 2018-02-10 19:26 | CARD ---
APPROVED REPORT EKG Measurement Heart [id number] <Conclusion> Atrial fibrillation with rapid ventricular response with premature ventricular or aberrantly conducted complexes Left axis deviation Left ventricular hypertrophy with QRS widening T wave abnormality, consider anterolateral ischemia or digitalis effect Abnormal ECG
[2018-02-11] MEDS: diltiaZEM IVPB 100mg in NS 100 ML IV PRN ×2 (04:56→14:03)
[2018-02-11] MEDS: Levothyroxine 125 MCG TAB PO SCH (05:00)
[2018-02-11] MEDS: Pantoprazole 40 mg EC Tab PO SCH (05:00)
[2018-02-11 06:42] LABS: BASO # 0.01 K/mm3 (0.0-2.0); BASO % 0.1 % (0.0-3.0); EOS # 0.1 (0.0-0.7); GRAN # 4.41 (1.4-6.5); GRAN % 63.8 % (50.0-68.0); HEMOGLOBIN 12.9 g/dL (12.0-16.0); LYMPH # 1.3 (1.2-3.4); MEAN CORPUSCULAR HEMOGLOBIN 30.6 pg (25.0-35.0); MEAN CORPUSCULAR HGB CONC 33.7 g/dl (31.0-37.0); MEAN PLATELET VOLUME 10.1 fl (7.0-11.0); MONO # 1.1 (0.1-0.6); MONO % 16.1 % (1.0-6.0); RBC 4.21 10^6/uL (3.5-6.1); RED CELL DISTRIBUTION WIDTH 14.2 % (11.5-14.5); WHITE BLOOD COUNT 6.9 10^3/ul (4.5-11.0)
--- NOTE | 2018-02-11 07:33 | CON ---
DATE: 02/10/2018 REQUESTING PHYSICIAN: Dr. Davidson. REASON FOR CONSULTATION: Atrial fibrillation, elevated troponin. HISTORY OF PRESENT ILLNESS: This is a 77-year-old woman with a history of atrial fibrillation and dementia, admitted with apparent altered mental status and noted to be in atrial fibrillation with rapid ventricular response. She is seen lying in bed on telemetry in the presence of her . DNR/DNI order is in place. She has a history of prior bilateral pulmonary emboli as well. She also has a history of COPD, hypertension, and diabetes. She has undergone a prior total abdominal hysterectomy and bilateral salpingo-oophorectomy for dysfunctional uterine bleeding and uterine cancer. She has undergone a prior left nephrectomy as well and she has had a right total hip replacement as well as a cholecystectomy performed. Over the past several years, she has had progressive dementia. CURRENT MEDICATIONS: Include IV diltiazem, trazodone, aspirin, insulin coverage, hydrochlorothiazide 25 mg daily, Lyrica 50 mg b.i.d., Protonix 40 mg daily, Rocephin, Synthroid 125 mcg daily, and valproate. Her oral medications have not been given yet due to question of her ability to swallow at this time. She has been having a persistent cough. ALLERGIES: SHE HAS REPORTEDLY HAD A REACTION TO CODEINE, CONTRAST DYE, MORPHINE, MEPERIDINE, LEVOFLOXACIN, PENICILLIN. SHE HAS ALSO HAD BLEEDING ISSUES WITH ANTICOAGULANT AGENTS AND HAS REFUSED CHRONIC ANTICOAGULATION. SOCIAL HISTORY: She is a former smoker, having quit several years ago. FAMILY HISTORY: Unclear. REVIEW OF SYSTEMS: Ten-point review of systems is otherwise limited, but according to her noncontributory. PHYSICAL EXAMINATION: GENERAL: She is an overweight elderly woman. VITAL SIGNS: Her blood pressure is 126/86 with a pulse of 90 in atrial fibrillation, respirations are 16. She is afebrile. HEENT: No JVD. CHEST: Bilateral scattered rhonchi. HEART: PMI displaced laterally with an irregularly regular rhythm. ABDOMEN: Soft, obese, nontender, normoactive bowel sounds. EXTREMITIES: No edema. SKIN: Warm and dry. PSYCHIATRIC: Somewhat of a flat affect, answers questions with minimal response, but appropriately. No gross motor or sensory deficits appreciable. DIAGNOSTIC DATA: Electrocardiogram reveals atrial fibrillation with nonspecific intraventricular conduction delay and nonspecific ST-T abnormalities. Chest x-ray revealed a borderline cardiac silhouette enlargement with clear lung de paz. LABORATORY DATA: White count is 8.3, hemoglobin and hematocrit 14.1 and 41.2 with a platelet count of 146,000. PT and PTT were normal. Potassium 3.9. BUN and creatinine 26 and 0.8. Initial troponin was 1.3, repeat is 0.83. BNP 18,900. TSH was 0.36. IMPRESSION: 1. Atrial fibrillation with rapid ventricular response, now clinically improved with IV diltiazem use, not currently on anticoagulation because of prior adverse issues with anticoagulant therapy. Details are unclear. 2. Progressive dementia. 3. Possible dysphasia issues, evaluation pending. 4. Elevated troponin, possibly secondary to stress of illness. However, some degree of congestive heart failure also present. Given her clinical scenario and other medical problems, I would not pursue any aggressive workup for coronary artery disease at this time. RECOMMENDATIONS: Rate control therapy with IV diltiazem will be planned for now pending dysphasia evaluation. Anticoagulation is being withheld at the request of her family. The DNR/DNI order is in place and will be respected. In general, comfort care and conservative management are most appropriate at this time. Thank you for this consultation and will be happy to follow along as needed. Al Lantigua MD
[2018-02-11 07:34] LABS: ALB/GLOB RATIO 1.1 (1.1-1.8); ALBUMIN 3.2 g/dL (3.0-4.8); ALT/SGPT 24 U/L (7-56); AST/SGOT 19 U/L (14-36); BLOOD UREA NITROGEN 30 mg/dL (7-21); CALCIUM 8.6 mg/dL (8.4-10.5); GFR AFRICAN-AMERICAN > 60; GFR NON-AFRICAN AMERICAN > 60
[2018-02-11] MEDS: Insulin Reg-MEDIUM-Coverage SC SCH ×4 (08:10→21:19)
[2018-02-11] MEDS: cefTRIAXone 1 gm 1 GM/100 ML BAG IVPB SCH (10:04)
[2018-02-11] MEDS: Sodium Chloride 0.9% 1,000 ML IV SCH (10:05)
[2018-02-11] MEDS ORDERED: Potassium Chloride 20 mEq ER Tab PO ONE (10:29)
[2018-02-11] MEDS: Lidocaine 5% Patch TD SCH (11:50)
--- NOTE | 2018-02-11 13:20 | CP.PCM.PN ---
<Messi Anthony - Last Filed: 02/11/18 13:15> Subjective - Date & Time of Evaluation Date of Evaluation: 02/11/18 Time of Evaluation: 11:00 - Subjective Subjective: Subjective: Patient seen and examined at bedside. Resting comfortably in bed. No acute overnight events. Patient family at bedside. Confirms desire for hospice. All questions are thoroughly addressed. Patient is requesting water. Admits to left lower back pain. Denies chest pain, SOB, N/V. Physical Examination: - Constitutional Appears: Non-toxic, Chronically Ill - Head Exam Head Exam: ATRAUMATIC, NORMAL INSPECTION, NORMOCEPHALIC - ENT Exam ENT Exam: Mucous Membranes Dry - Neck Exam Neck exam: Positive for: Normal Inspection - Respiratory Exam Respiratory Exam: Decreased Breath Sounds - Cardiovascular Exam Cardiovascular Exam: Irregular Rhythm - GI/Abdominal Exam GI & Abdominal Exam: Normal Bowel Sounds, Soft. absent: Tenderness - Extremities Exam Extremities exam: Positive for: normal inspection - Neurological Exam Neurological exam: can be awakened, responds to verbal stimuli - Psychiatric Exam Psychiatric exam: Normal Affect, Normal Mood - Skin Skin Exam: Dry, Intact, Normal Color, Warm Assessment and Plan: Patient is a 77 yo F with a past medical history of COPD, Saddle PE, Dementia, and A-fib who presents to the ED for evaluation and treatment for altered mental status and progressive shortness of breath. AMS CT of Head: 1. No acute intracranial hemorrhage or acute territorial type infarct. 2. Hypodense encephalomalacia is identified in the region of the left insular cortex, which is stable. 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 3. There are scattered foci/areas of hypodensity within the cerebral white matter, likely representing small vessel ischemic disease in a patient this age. 4. Moderate atrophy. 5. Paranasal sinus disease is noted above - swallow eval- recommended nector thickened liquids - no acute intervention at this time Elevated Troponin, likely 2/2 NSTEMI - trending down from 1.3 to 0.83 - Cardiology consult requested, appreciate recs - anticoagulation cannot be started as patient is allergic to all available therapies Shortness of Breath, likely 2/2 CHF Exacerbation - BNP 18,900 - HCTZ 25 daily, lasix cannot be given as patient is allergic - oxygen supplementation- NC 2L Atrial Fibrillation with RVR - cardizem ip titrated down from 15 to 5 - started on cardizem 30mg PO q6h - Patient refusing any anticoagulation UTI - continue rocephin Back Pain - lidoderm path - toradol 30mg q6 prn pain Hx of Hypothyroidism - Resume home synthroid Hx of Hypertension - No home meds Diabetes - Hold home medications - ISS Medium with Accuchecks ACHS Chronic Pain - Continue Pregabalin GI/DVT Prophylaxis - Protonix/SCD Dispo: Patient's family is requesting hospice care. Home hospice set up as per case management. Patient seen, case discussed with, and plan approved by attending physician, Dr. Davidson. Objective - Vital Signs/Intake and Output Vital Signs (last 24 hours): Temp Pulse Resp BP Pulse Ox 97.6 F 96 H 18 107/75 94 L 02/11/18 12:00 02/11/18 12:32 02/11/18 12:00 02/11/18 12:32 02/11/18 06:00 Intake and Output: 02/11/18 02/11/18 06:59 18:59 Intake Total 810 Output Total 250 Balance 560 - Medications Medications: Current Medications Aspirin (Ecotrin) 81 mg PO DAILY [facility] Last Admin: 02/11/18 10:04 Dose: 81 mg Diltiazem HCl (Cardizem) 30 mg PO Q6H [facility] Last Admin: 02/11/18 12:32 Dose: 30 mg Hydrochlorothiazide (Hydrodiuril) 25 mg PO DAILY [facility] Last Admin: 02/11/18 10:04 Dose: 25 mg Ceftriaxone Sodium (Rocephin 1 Gram Ivpb) 1 gm in 100 mls @ 100 mls/hr IVPB DAILY [facility] PRN Reason: Protocol Last Admin: 02/11/18 10:04 Dose: 100 mls/hr Valproate Sodium 250 mg/ (Sodium Chloride) 52.5 mls @ 52.5 mls/hr IVPB BID [facility] Last Admin: 02/11/18 10:07 Dose: 52.5 mls/hr diltiaZEM IVPB 100mg in NS (Cardizem 100mg In Ns) 100 mls @ 5 mls/hr IV .Q20H PRN; Protocol; 5 MG/HR PRN Reason: TITRATE PER MD ORDER Insulin Human Regular (Humulin R Med) 0 units SC [facility] PRN Reason: Protocol Last Admin: 02/11/18 12:18 Dose: Not Given Ketorolac Tromethamine (Toradol) 15 mg IVP Q8H PRN PRN Reason: Pain, moderate (4-7) Last Admin: 02/11/18 11:49 Dose: 15 mg Levothyroxine Sodium (Synthroid) 125 mcg PO 0600 [facility] Last Admin: 02/11/18 05:00 Dose: 125 mcg Lidocaine (Lidoderm) 1 ea TD DAILY [facility] Last Admin: 02/11/18 11:50 Dose: 1 ea Pantoprazole Sodium (Protonix Ec Tab) 40 mg PO 0600 [facility] Last Admin: 02/11/18 05:00 Dose: 40 mg Pregabalin (Lyrica) 50 mg PO BID [facility] Last Admin: 02/11/18 10:04 Dose: 50 mg Trazodone HCl (Desyrel) 100 mg PO HS [facility] Last Admin: 02/10/18 21:19 Dose: 100 mg - Labs Labs: 02/11/18 05:30 02/11/18 05:30 PT 13.2 SECONDS (9.4-12.5) H 02/09/18 17:30 INR 1.15 (0.93-1.08) H 02/09/18 17:30 APTT 32.3 Seconds (25.1-36.5) 02/09/18 17:30 <Zachariah Davidson - Last Filed: 02/11/18 17:53> Objective - Vital Signs/Intake and Output Vital Signs (last 24 hours): Temp Pulse Resp BP Pulse Ox 97.6 F 86 18 107/75 94 L 02/11/18 12:00 02/11/18 14:00 02/11/18 12:00 02/11/18 12:32 02/11/18 06:00 Intake and Output: 02/11/18 02/11/18 06:59 18:59 Intake Total 810 360 Output Total 250 250 Balance 560 110 - Medications Medications: Current Medications Aspirin (Ecotrin) 81 mg PO DAILY [facility] Last Admin: 02/11/18 10:04 Dose: 81 mg Diltiazem HCl (Cardizem) 30 mg PO Q6H [facility] Last Admin: 02/11/18 12:32 Dose: 30 mg Hydrochlorothiazide (Hydrodiuril) 25 mg PO DAILY [facility] Last Admin: 02/11/18 10:04 Dose: 25 mg Ceftriaxone Sodium (Rocephin 1 Gram Ivpb) 1 gm in 100 mls @ 100 mls/hr IVPB DAILY [facility] PRN Reason: Protocol Last Admin: 02/11/18 10:04 Dose: 100 mls/hr Valproate Sodium 250 mg/ (Sodium Chloride) 52.5 mls @ 52.5 mls/hr IVPB BID [facility] Last Admin: 02/11/18 10:07 Dose: 52.5 mls/hr diltiaZEM IVPB 100mg in NS (Cardizem 100mg In Ns) 100 mls @ 5 mls/hr IV .Q20H PRN; Protocol; 5 MG/HR PRN Reason: TITRATE PER MD ORDER Last Admin: 02/11/18 14:03 Dose: 5 mg/hr, 5 mls/hr Insulin Human Regular (Humulin R Med) 0 units SC ACHS [facility] PRN Reason: Protocol Last Admin: 02/11/18 12:18 Dose: Not Given Ketorolac Tromethamine (Toradol) 15 mg IVP Q8H PRN PRN Reason: Pain, moderate (4-7) Levothyroxine Sodium (Synthroid) 125 mcg PO 0600 [facility] Last Admin: 02/11/18 05:00 Dose: 125 mcg Lidocaine (Lidoderm) 1 ea TD DAILY [facility] Last Admin: 02/11/18 11:50 Dose: 1 ea Pantoprazole Sodium (Protonix Ec Tab) 40 mg PO 0600 [facility] Last Admin: 02/11/18 05:00 Dose: 40 mg Pregabalin (Lyrica) 50 mg PO BID [facility] Last Admin: 02/11/18 10:04 Dose: 50 mg Trazodone HCl (Desyrel) 100 mg PO HS [facility] Last Admin: 02/10/18 21:19 Dose: 100 mg - Labs Labs: 02/11/18 05:30 02/11/18 05:30 PT 13.2 SECONDS (9.4-12.5) H 02/09/18 17:30 INR 1.15 (0.93-1.08) H 02/09/18 17:30 APTT 32.3 Seconds (25.1-36.5) 02/09/18 17:30 Attending/Attestation - Attestation I have personally seen and examined this patient.: Yes I have fully participated in the care of the patient.: Yes I have reviewed all pertinent clinical information, including history, physical exam and plan: Yes Notes (Text): 02/11/18 16:21 Attending note; Patient seen and examined with resident. patient is complaining of nonspecific pain. More alert today. Patient's daughter by the bedside. Patient is a 77 year old female with pertinent past medical history of Dementia , pulmonary embolus , atrial fibrillation, urinary incontinence , diabetes, bed bound and A-fib presenting with her daughters for altered mental status. Patient is not on any anticoagulation secondary to allergy and refusal. Patient had rapid A. fib. Currently on IV Cardizem. started on by mouth Cardizem. elevated troponin. On aspirin. Patient's family refused anticoagulation. Cardiology evaluation appreciated. Patient has multiple drug allergies including codeine, levofloxacin, meperidine , morphine, penicillin. The exact allergic reaction not known. Only pain medication option is IV toradol. Possible UTI; CT scan showed possible right perinephric stranding. Continue Rocephin. Patient is tolerating. Ct scan also showed left breast mass. Family is aware of the mass. Did not get any workup done as outpatient. Dementia/behavioral issues; psychiatric evaluation requested to adjust medication. Case discussed with palliative care consult in detail. family history caused him hospice care. Case discussed with family service caseworker and social media intern in detail. Patient is DNR/DNI. Prognosis is poor.
--- NOTE | 2018-02-11 14:13 | PQF CHF ---
This form is a permanent part of the medical record Clarification of your documentation is requested to better reflect the severity of illness and intensity of treatment of your patient. Indicators present 5/2 Documentation of " elevated Troponin, possibly 2nd to stress of illness. However some degree of CHF also present. Has NSTEMI been ruled out & please specify Type & acuity of CHF present on admission [x] Diagnosis of CHF and/or history of CHF [x] BNP > 200 [] Imaging Finding of Pulmonary Edema /Pleural Effusions [] Fluid/Volume Overload [] Pitting edema [] Ejection Fraction < 40% (Indicative of Systolic Heart Failure) [] Ejection Fraction > 40% (Indicative of Diastolic Heart Failure) [x] Dyspnea / Orthopenea / Paroxysmal Nocturnal Dyspnea [] Other: Location in the medical record that reflects the above clinical findings: [x] Card consult 5/2 Treatment Provided: [x] IV Lasix PHYSICIAN'S RESPONSE Based on your medical judgment of the clinical indicators outlined above, are you treating this patient for a known or suspected: [] Acute CHF [] Systolic [] Diastolic [] Combined [x] Chronic CHF [] Systolic [x] Diastolic [] Combined [] Acute on Chronic CHF []Systolic [] Diastolic [] Combined [] CHF due hypertension [] Acute systolic []Chronic systolic [] Acute/ chronic systolic [] Other, please indicate: [] [] If Unable to Determine, please check the box, sign and date. Present On Admission (POA) Indicator: [x] Present at the time of admission [] Not present at the time of admission [] Clinically Undetermined In responding to this query, please exercise your independent professional judgment. The fact that a question is asked does not imply that any particular answer is desired or expected. Thank you for your clarification on this documentation. If you have any questions please call:[ ] [phone] * Thank you, [ ] Poornima Hernandez RN CDS flexographic printing press operator AIR[employer]
--- NOTE | 2018-02-11 23:02 | CARD ---
APPROVED REPORT EKG Measurement Heart [id number] <Conclusion> Atrial fibrillation with rapid ventricular response Left axis deviation Septal infarct, age undetermined T wave abnormality, consider lateral ischemia or digitalis effect Abnormal ECG
--- NOTE | 2018-02-12 04:29 | CON ---
DATE: HISTORY OF PRESENT ILLNESS: Patient is 77-year-old female, multiple medical issues, dementia, atrial fibrillation, history of diabetes, pulmonary embolism. Patient was brought by her family because patient was more weak, not interested to ambulate any longer, poor appetite, Psych consult was called for evaluation of med management for this patient. This procedure writer attempted to speak to the patient, but the patient is deeply sedated. There is no meaningful conversation possible. VITAL SIGNS: Stable. Temperature 97.6, pulse of 86, blood pressure 107/75, respirations 18, oxygen saturation is 94. MEDICATIONS: Reviewed. The patient is on aspirin, Rocephin, Cardizem, hydrochlorothiazide, Humulin, Toradol, Synthroid, Lidoderm, Remeron will be started today 15 mg at the nighttime, Protonix, Lyrica 50 mg twice a day, trazodone 50 mg. LABORATORY DATA: Labs reviewed. Coagulation reviewed. Valproic acid 33. Patient was on valproic acid 250 mg twice a day, IV. MENTAL STATUS EXAMINATION: As this procedure writer described above, patient is deeply sedated and not possible to have meaningful conversation with the patient. Patient has episodes of aggression and agitation and restless behavior. Previous admission to the [facility], patient was on Depakote. No other psychotropic drugs involved. Most recent admission to the Psych Unit in [place] was in 11/2017. Patient was discharged on Depakote 250 twice a day and Aricept 5 mg at the nighttime. IMPRESSION: Dementia with superimposed delirium due to multiple reasons, electrolyte imbalance as well as [id number] myocardial infarction, atrial fibrillation, urinary tract infection, back pain, history of hypertension, diabetes. We were confused over the patient's presentation. PLAN: Continue current management. Continue Depakote. This procedure writer will start weaning the patient off from the trazodone. We will implement Remeron. We will follow up and advise accordingly. Thank you very much for letting me participate in care of your patient. Maria De Jesus Robles MD
[2018-02-12] MEDS: Pantoprazole 40 mg EC Tab PO SCH (06:35)
[2018-02-12] MEDS: Levothyroxine 125 MCG TAB PO SCH (06:35)
[2018-02-12 07:10] LABS: BASO # 0.02 K/mm3 (0.0-2.0); BASO % 0.2 % (0.0-3.0); EOS # 0.1 (0.0-0.7); EOS % 1.1 % (1.5-5.0); GRAN # 5.72 (1.4-6.5); GRAN % 65.6 % (50.0-68.0); HEMOGLOBIN 12.5 g/dL (12.0-16.0); LYMPH # 1.7 (1.2-3.4); LYMPH % 19.6 % (22.0-35.0); MEAN CELL VOLUME 89.6 fl (80.0-105.0); MEAN CORPUSCULAR HEMOGLOBIN 30.1 pg (25.0-35.0); MEAN CORPUSCULAR HGB CONC 33.6 g/dl (31.0-37.0); MEAN PLATELET VOLUME 9.7 fl (7.0-11.0); MONO # 1.2 (0.1-0.6); MONO % 13.5 % (1.0-6.0); RBC 4.15 10^6/uL (3.5-6.1); RED CELL DISTRIBUTION WIDTH 13.9 % (11.5-14.5); WHITE BLOOD COUNT 8.7 10^3/ul (4.5-11.0)
[2018-02-12 07:48] LABS: ALB/GLOB RATIO 1.1 (1.1-1.8); ALBUMIN 3.2 g/dL (3.0-4.8); ALT/SGPT 25 U/L (7-56); AST/SGOT 20 U/L (14-36); BLOOD UREA NITROGEN 24 mg/dL (7-21); CALCIUM 8.4 mg/dL (8.4-10.5); GFR AFRICAN-AMERICAN > 60; GFR NON-AFRICAN AMERICAN > 60
[2018-02-12] MEDS: Insulin Reg-MEDIUM-Coverage SC SCH ×4 (07:54→21:12)
[2018-02-12] MEDS ORDERED: Digoxin 500 mcg/2ml (0.5 mg/2ml) Inj IVP ONE ×2 (10:16)
[2018-02-12] MEDS: Lidocaine 5% Patch TD SCH (11:00)
[2018-02-12] MEDS: diltiaZEM IVPB 100mg in NS 100 ML IV PRN (11:05)
--- NOTE | 2018-02-12 11:12 | CP.PCM.PN ---
<Messi Anthony - Last Filed: 02/12/18 14:13> Subjective - Date & Time of Evaluation Date of Evaluation: 02/12/18 Time of Evaluation: 10:00 - Subjective Subjective: Subjective: Patient seen and examined at bedside. Resting comfortably in bed. Tachycardic overnight. 12 point ROS cannot be ascertained at this time due to altered mental status Physical Examination: - Constitutional Appears: Non-toxic, Chronically Ill - Head Exam Head Exam: ATRAUMATIC, NORMAL INSPECTION, NORMOCEPHALIC - ENT Exam ENT Exam: Mucous Membranes Dry - Neck Exam Neck exam: Positive for: Normal Inspection - Respiratory Exam Respiratory Exam: Decreased Breath Sounds - Cardiovascular Exam Cardiovascular Exam: Irregular Rhythm - GI/Abdominal Exam GI & Abdominal Exam: Normal Bowel Sounds, Soft. absent: Tenderness - Extremities Exam Extremities exam: Positive for: normal inspection - Neurological Exam Neurological exam: altered - Psychiatric Exam Psychiatric exam: Normal Affect, Normal Mood - Skin Skin Exam: Dry, Intact, Normal Color, Warm Assessment and Plan: Patient is a 77 yo F with a past medical history of COPD, Saddle PE, Dementia, and A-fib who presents to the ED for evaluation and treatment for altered mental status and progressive shortness of breath. Atrial Fibrillation with RVR - c/w cardizem drip @ 5 - started on cardizem 60mg PO q6h - digoxin x 1 - no anticoagulation due to allergy AMS CT of Head: 1. No acute intracranial hemorrhage or acute territorial type infarct. 2. Hypodense encephalomalacia is identified in the region of the left insular cortex, which is stable. 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 3. There are scattered foci/areas of hypodensity within the cerebral white matter, likely representing small vessel ischemic disease in a patient this age. 4. Moderate atrophy. 5. Paranasal sinus disease is noted above - swallow eval- recommended nector thickened liquids - no acute intervention at this time Elevated Troponin, likely 2/2 NSTEMI - trending down from 1.3 to 0.83 - Cardiology consult requested, appreciate recs - anticoagulation cannot be started as patient is allergic to all available therapies Shortness of Breath, likely 2/2 CHF Exacerbation - BNP 18,900 - HCTZ 25 daily, lasix cannot be given as patient is allergic - oxygen supplementation- NC 2L UTI - switched from rocephin to macrobid due to sensitivity Back Pain - lidoderm path - toradol 15mg q6 prn pain Hx of Hypothyroidism - Resume home synthroid Hx of Hypertension - No home meds Diabetes - Hold home medications - ISS Medium with Accuchecks ACHS Chronic Pain - Continue Pregabalin GI/DVT Prophylaxis - Protonix/SCD Dispo: Patient's family is requesting hospice care. Home hospice set up as per case management. Patient seen, case discussed with, and plan approved by attending physician, Dr. Davidson. Objective - Vital Signs/Intake and Output Vital Signs (last 24 hours): Temp Pulse Resp BP Pulse Ox 97.5 F L 117 H 22 118/82 95 02/12/18 06:00 02/12/18 06:33 02/12/18 06:00 02/12/18 06:33 02/12/18 06:00 Intake and Output: 02/12/18 02/12/18 06:59 18:59 Intake Total 190 Output Total 700 Balance -510 - Medications Medications: Current Medications Aspirin (Ecotrin) 81 mg PO DAILY [facility] Last Admin: 02/12/18 10:59 Dose: 81 mg Diltiazem HCl (Cardizem) 60 mg PO Q6H [facility] Hydrochlorothiazide (Hydrodiuril) 25 mg PO DAILY [facility] Last Admin: 02/12/18 11:00 Dose: 25 mg Valproate Sodium 250 mg/ (Sodium Chloride) 52.5 mls @ 52.5 mls/hr IVPB BID [facility] Last Admin: 02/12/18 10:17 Dose: 52.5 mls/hr diltiaZEM IVPB 100mg in NS (Cardizem 100mg In Ns) 100 mls @ 5 mls/hr IV .Q20H PRN; Protocol; 5 MG/HR PRN Reason: TITRATE PER MD ORDER Last Admin: 02/11/18 14:03 Dose: 5 mg/hr, 5 mls/hr Potassium Chloride (Potassium Chloride 10 Meq/100 Ml) 10 meq in 100 mls @ 50 mls/hr IVPB ONCE ONE Stop: 02/12/18 11:29 Insulin Human Regular (Humulin R Med) 0 units SC ACHS [facility] PRN Reason: Protocol Last Admin: 02/12/18 07:54 Dose: Not Given Ketorolac Tromethamine (Toradol) 15 mg IVP Q8H PRN PRN Reason: Pain, moderate (4-7) Last Admin: 02/11/18 18:12 Dose: 15 mg Levothyroxine Sodium (Synthroid) 125 mcg PO 0600 [facility] Last Admin: 02/12/18 06:35 Dose: 125 mcg Lidocaine (Lidoderm) 1 ea TD DAILY [facility] Last Admin: 02/12/18 11:00 Dose: 1 ea Mirtazapine (Remeron) 15 mg PO HS [facility] Last Admin: 02/11/18 21:00 Dose: 15 mg Nitrofurantoin Macrocrystals (Macrobid) 100 mg PO Q12 [facility] Pantoprazole Sodium (Protonix Ec Tab) 40 mg PO 0600 [facility] Last Admin: 02/12/18 06:35 Dose: 40 mg Pregabalin (Lyrica) 50 mg PO BID [facility] Last Admin: 02/12/18 10:59 Dose: 50 mg - Labs Labs: 02/12/18 06:00 02/12/18 06:00 PT 13.2 SECONDS (9.4-12.5) H 02/09/18 17:30 INR 1.15 (0.93-1.08) H 02/09/18 17:30 APTT 32.3 Seconds (25.1-36.5) 02/09/18 17:30 <Zachariah Davidson - Last Filed: 02/12/18 15:11> Objective - Vital Signs/Intake and Output Vital Signs (last 24 hours): Temp Pulse Resp BP Pulse Ox 97.5 F L 85 22 116/67 95 02/12/18 06:00 02/12/18 14:39 02/12/18 06:00 02/12/18 14:39 02/12/18 06:00 Intake and Output: 02/12/18 02/12/18 06:59 18:59 Intake Total 190 100 Output Total 700 Balance -510 100 - Medications Medications: Current Medications Alprazolam (Xanax) 0.25 mg PO TID PRN; Protocol PRN Reason: agitation/restlessness Stop: 02/19/18 14:01 Aspirin (Ecotrin) 81 mg PO DAILY [facility] Last Admin: 02/12/18 10:59 Dose: 81 mg Diltiazem HCl (Cardizem) 60 mg PO Q6H [facility] Last Admin: 02/12/18 14:39 Dose: 60 mg Hydrochlorothiazide (Hydrodiuril) 25 mg PO DAILY [facility] Last Admin: 02/12/18 11:00 Dose: 25 mg Valproate Sodium 250 mg/ (Sodium Chloride) 52.5 mls @ 52.5 mls/hr IVPB BID [facility] Last Admin: 02/12/18 10:17 Dose: 52.5 mls/hr diltiaZEM IVPB 100mg in NS (Cardizem 100mg In Ns) 100 mls @ 5 mls/hr IV .Q20H PRN; Protocol; 5 MG/HR PRN Reason: TITRATE PER MD ORDER Last Admin: 02/12/18 11:05 Dose: 5 mg/hr, 5 mls/hr Insulin Human Regular (Humulin R Med) 0 units SC ACHS [facility] PRN Reason: Protocol Last Admin: 02/12/18 12:39 Dose: Not Given Ketorolac Tromethamine (Toradol) 15 mg IVP Q8H PRN PRN Reason: Pain, moderate (4-7) Last Admin: 02/11/18 18:12 Dose: 15 mg Levothyroxine Sodium (Synthroid) 125 mcg PO 0600 [facility] Last Admin: 02/12/18 06:35 Dose: 125 mcg Lidocaine (Lidoderm) 1 ea TD DAILY [facility] Last Admin: 02/12/18 11:00 Dose: 1 ea Mirtazapine (Remeron) 15 mg PO HS [facility] Last Admin: 02/11/18 21:00 Dose: 15 mg Nitrofurantoin Macrocrystals (Macrobid) 100 mg PO Q12 [facility] Last Admin: 02/12/18 11:10 Dose: 100 mg Pantoprazole Sodium (Protonix Ec Tab) 40 mg PO 0600 [facility] Last Admin: 02/12/18 06:35 Dose: 40 mg Pregabalin (Lyrica) 50 mg PO BID [facility] Last Admin: 02/12/18 10:59 Dose: 50 mg - Labs Labs: 02/12/18 06:00 02/12/18 06:00 PT 13.2 SECONDS (9.4-12.5) H 02/09/18 17:30 INR 1.15 (0.93-1.08) H 02/09/18 17:30 APTT 32.3 Seconds (25.1-36.5) 02/09/18 17:30 Attending/Attestation - Attestation I have personally seen and examined this patient.: Yes I have fully participated in the care of the patient.: Yes I have reviewed all pertinent clinical information, including history, physical exam and plan: Yes Notes (Text): 02/12/18 15:10 Attending note; Patient seen and examined with resident. patient is resting comfortably. Not in any acute distress. Heart rate was elevated. Patient is a 77 year old female with pertinent past medical history of Dementia , pulmonary embolus , atrial fibrillation, urinary incontinence , diabetes, bed bound and A-fib presenting with her daughters for altered mental status. Patient is not on any anticoagulation secondary to allergy and refusal. Patient had rapid A. fib. Currently on IV Cardizem. started on po Cardizem. 1 dose of IV digoxin given. Monitor blood pressure closely. elevated troponin. On aspirin. Patient's family refused anticoagulation. Cardiology evaluation appreciated. Patient has multiple drug allergies including codeine, levofloxacin, meperidine , morphine, penicillin. The exact allergic reaction not known. Only pain medication option is IV toradol. Possible UTI; CT scan showed possible right perinephric stranding. Started on Macrobid. Ct scan also showed left breast mass. Family is aware of the mass. Did not get any workup done as outpatient. Dementia/behavioral issues; psychiatric evaluation requested to adjust medication. started on Remeron and Xanax. Case discussed with palliative care consult in detail. Case discussed with case aide and renal social worker in detail. Patient is DNR/DNI. family agreed for home hospice. Arrangements are being made. Information given by renal social worker. Prognosis is poor.
--- NOTE | 2018-02-12 13:00 | CP.PCM.PN ---
Subjective - Date & Time of Evaluation Date of Evaluation: 02/12/18 Time of Evaluation: 12:00 - Subjective Subjective: confused, periods of agitation. no acute changes Objective - Vital Signs/Intake and Output Vital Signs (last 24 hours): Temp Pulse Resp BP Pulse Ox 97.5 F L 140 H 22 98/63 L 95 02/12/18 06:00 02/12/18 11:10 02/12/18 06:00 02/12/18 11:10 02/12/18 06:00 Intake and Output: 02/12/18 02/12/18 06:59 18:59 Intake Total 190 100 Output Total 700 Balance -510 100 - Medications Medications: Current Medications Alprazolam (Xanax) 0.25 mg PO TID PRN; Protocol PRN Reason: agitation/restlessness Stop: 02/19/18 14:01 Aspirin (Ecotrin) 81 mg PO DAILY [facility] Last Admin: 02/12/18 10:59 Dose: 81 mg Diltiazem HCl (Cardizem) 60 mg PO Q6H [facility] Last Admin: 02/12/18 11:10 Dose: 60 mg Hydrochlorothiazide (Hydrodiuril) 25 mg PO DAILY [facility] Last Admin: 02/12/18 11:00 Dose: 25 mg Valproate Sodium 250 mg/ (Sodium Chloride) 52.5 mls @ 52.5 mls/hr IVPB BID [facility] Last Admin: 02/12/18 10:17 Dose: 52.5 mls/hr diltiaZEM IVPB 100mg in NS (Cardizem 100mg In Ns) 100 mls @ 5 mls/hr IV .Q20H PRN; Protocol; 5 MG/HR PRN Reason: TITRATE PER MD ORDER Last Admin: 02/12/18 11:05 Dose: 5 mg/hr, 5 mls/hr Insulin Human Regular (Humulin R Med) 0 units SC ACHS [facility] PRN Reason: Protocol Last Admin: 02/12/18 12:39 Dose: Not Given Ketorolac Tromethamine (Toradol) 15 mg IVP Q8H PRN PRN Reason: Pain, moderate (4-7) Last Admin: 02/11/18 18:12 Dose: 15 mg Levothyroxine Sodium (Synthroid) 125 mcg PO 0600 [facility] Last Admin: 02/12/18 06:35 Dose: 125 mcg Lidocaine (Lidoderm) 1 ea TD DAILY [facility] Last Admin: 02/12/18 11:00 Dose: 1 ea Mirtazapine (Remeron) 15 mg PO HS [facility] Last Admin: 02/11/18 21:00 Dose: 15 mg Nitrofurantoin Macrocrystals (Macrobid) 100 mg PO Q12 [facility] Last Admin: 02/12/18 11:10 Dose: 100 mg Pantoprazole Sodium (Protonix Ec Tab) 40 mg PO 0600 [facility] Last Admin: 02/12/18 06:35 Dose: 40 mg Pregabalin (Lyrica) 50 mg PO BID [facility] Last Admin: 02/12/18 10:59 Dose: 50 mg - Labs Labs: 02/12/18 06:00 02/12/18 06:00 PT 13.2 SECONDS (9.4-12.5) H 02/09/18 17:30 INR 1.15 (0.93-1.08) H 02/09/18 17:30 APTT 32.3 Seconds (25.1-36.5) 02/09/18 17:30 - Constitutional Appears: Chronically Ill - Eye Exam Eye Exam: Normal appearance, PERRL - ENT Exam ENT Exam: Mucous Membranes Moist, Normal Oropharynx - Neck Exam Neck Exam: Normal Inspection - Respiratory Exam Respiratory Exam: Decreased Breath Sounds, NORMAL BREATHING PATTERN - Cardiovascular Exam Cardiovascular Exam: REGULAR RHYTHM, +S1, +S2 - GI/Abdominal Exam GI & Abdominal Exam: Soft, Hypoactive Bowel Sounds - Extremities Exam Extremities Exam: Normal Capillary Refill, Pedal Edema - Neurological Exam Neurological Exam: Altered - Skin Skin Exam: Dry, Pallor Assessment and Plan - Assessment and Plan (Free Text) Assessment: 77 year old female with history of dementia with behavioral component who is admitted with weakness, dysphagia, altered mental status and generalized body pain Patient's daughter Farzana at bedside. Family has decided to proceed with hospice at home. Family in the process of securing a multimedia engineer aide. Daughter's overwhelmed as their father's health is also failing. Farzana reports that her father suffered a fall last night injuring his arm. Psychosocial support provided.Psychosocial support given. Time spent with family in goals of care and end of life discussion, 30 minutes Plan: Goals of retirement with hospice
[2018-02-12] MEDS: cefTRIAXone 1 gm 1 GM/100 ML BAG IVPB SCH (14:47)
--- NOTE | 2018-02-12 23:13 | PN ---
DATE: 02/12/2018 SUBJECTIVE: The patient is a 77-year-old female, history of dementia with behavioral disturbances. Patient had one Psychiatric and Geriatric Unit, which took place in [place]. Patient is on the medical site for evaluation of agitated behavior, altered mental status and progressively shortness of breath. Patient was found to have atrial fibrillation, altered mental status, also elevated troponin, most likely NSTEMI. Patient also has urinary tract infection, back pain, hypothyroidism, history of hypertension, diabetes, chronic pain and dementia. This quality analyst/technical writer was involved into the patient care because of medication management and patient has episodes of confusion, agitation and restless behavior. This quality analyst/technical writer implemented Xanax, which seems to be effective, also discussed with the patient's POA, her daughter Farzana. As per Farzana, patient was traumatized with Psych admission and still right now she feels that she is in that place. Patient's daughter also said that patient was very confused overnight, was paranoid, screaming that somebody is after her. This quality analyst/technical writer had prolonged conversation and treatment plan was discussed in details. Patient's family wants to have supportive measures and comfort care only, but at the same time want patient to feel comfortable. This quality analyst/technical writer discussed options of Xanax 0.25 mg three times a day, also Seroquel. Patient's family was in agreement with that. During the evaluation in the morning time, patient appears to be very sleepy and lethargic. No option to have meaningful conversation. VITAL SIGNS: Seems to be stable. Temperature 97.5, pulse is 85, blood pressure 116/67, respirations 22, oxygen saturation is 95. MEDICATIONS: Reviewed. Patient is on Xanax, aspirin, Cardizem, hydrochlorothiazide, Toradol, Synthroid, Remeron 15 mg at the nighttime, Macrobid, Protonix, Lyrica, Seroquel 12.5 mg at the nighttime and valproic acid. LABORATORY DATA: Labs reviewed. Most recent was from today. MENTAL STATUS EXAMINATION: Patient is lethargic. No option to have meaningful conversation. IMPRESSION: Patient is in delirium stage. PLAN: Comfort measure, Xanax as needed three times a day, also Seroquel at the nighttime and Remeron at the nighttime. Discussed with the family. There were no acute issues. There was no need for the patient to be seen by Dr. Enrique over the weekend. If patient has any aggression or agitation, please reconsult as needed. This quality analyst/technical writer will follow up on this patient at the morning time on Thursday. If any questions, call Dr. Enrique over the weekend. Thank you very much for letting me participate in care of your patient. Care for this patient took more than 30 minutes. Maria De Jesus Robles MD
[2018-02-13] MEDS: Levothyroxine 125 MCG TAB PO SCH (05:27)
[2018-02-13] MEDS: Pantoprazole 40 mg EC Tab PO SCH (05:28)
[2018-02-13] MEDS: diltiaZEM IVPB 100mg in NS 100 ML IV PRN (07:09)
[2018-02-13] MEDS: Insulin Reg-MEDIUM-Coverage SC SCH ×4 (09:49→22:00)
[2018-02-13] MEDS: Lidocaine 5% Patch TD SCH (10:14)
--- NOTE | 2018-02-13 10:27 | CP.PCM.PN ---
<Braxton Burnham - Last Filed: 02/13/18 10:23> Subjective - Date & Time of Evaluation Date of Evaluation: 02/13/18 Time of Evaluation: 10:23 - Subjective Subjective: Medicine Progress Note Pt seen and examined at bedside. Patient lethargic overnight. Pt resting comfortably in bed. Unable to obtain ROS due to patient's current mental status. Objective - Vital Signs/Intake and Output Vital Signs (last 24 hours): Temp Pulse Resp BP Pulse Ox 98.5 F 86 20 120/75 95 02/13/18 06:00 02/13/18 06:00 02/13/18 06:00 02/13/18 06:00 02/13/18 06:00 Intake and Output: 02/13/18 02/13/18 06:59 18:59 Intake Total 180 100 Output Total 900 Balance -720 100 - Medications Medications: Current Medications Alprazolam (Xanax) 0.25 mg PO TID [facility] PRN Reason: Protocol Stop: 02/19/18 18:01 Last Admin: 02/13/18 10:04 Dose: Not Given Aspirin (Ecotrin) 81 mg PO DAILY [facility] Last Admin: 02/13/18 10:14 Dose: Not Given Diltiazem HCl (Cardizem) 60 mg PO Q6H [facility] Last Admin: 02/13/18 05:20 Dose: 60 mg Hydrochlorothiazide (Hydrodiuril) 25 mg PO DAILY [facility] Last Admin: 02/13/18 10:03 Dose: 25 mg Valproate Sodium 250 mg/ (Sodium Chloride) 52.5 mls @ 52.5 mls/hr IVPB BID [facility] Last Admin: 02/13/18 10:04 Dose: 52.5 mls/hr diltiaZEM IVPB 100mg in NS (Cardizem 100mg In Ns) 100 mls @ 5 mls/hr IV .Q20H PRN; Protocol; 5 MG/HR PRN Reason: TITRATE PER MD ORDER Last Admin: 02/13/18 07:09 Dose: 5 mg/hr, 5 mls/hr Insulin Human Regular (Humulin R Med) 0 units SC ACHS [facility] PRN Reason: Protocol Last Admin: 02/13/18 09:49 Dose: Not Given Ketorolac Tromethamine (Toradol) 15 mg IVP Q8H PRN PRN Reason: Pain, moderate (4-7) Last Admin: 02/13/18 05:27 Dose: 15 mg Levothyroxine Sodium (Synthroid) 125 mcg PO 0600 [facility] Last Admin: 02/13/18 05:27 Dose: 125 mcg Lidocaine (Lidoderm) 1 ea TD DAILY [facility] Last Admin: 02/13/18 10:14 Dose: Not Given Mirtazapine (Remeron) 15 mg PO HS [facility] Last Admin: 02/12/18 21:14 Dose: Not Given Nitrofurantoin Macrocrystals (Macrobid) 100 mg PO Q12 [facility] Last Admin: 02/13/18 10:04 Dose: Not Given Pantoprazole Sodium (Protonix Ec Tab) 40 mg PO 0600 [facility] Last Admin: 02/13/18 05:28 Dose: 40 mg Pregabalin (Lyrica) 50 mg PO BID [facility] Last Admin: 02/13/18 10:03 Dose: Not Given Quetiapine Fumarate (Seroquel) 12.5 mg PO HS [facility] PRN Reason: Protocol Last Admin: 02/12/18 21:13 Dose: Not Given - Labs Labs: 02/12/18 06:00 02/12/18 06:00 PT 13.2 SECONDS (9.4-12.5) H 02/09/18 17:30 INR 1.15 (0.93-1.08) H 02/09/18 17:30 APTT 32.3 Seconds (25.1-36.5) 02/09/18 17:30 - Constitutional Appears: Non-toxic, Chronically Ill - Head Exam Head Exam: ATRAUMATIC, NORMAL INSPECTION, NORMOCEPHALIC - ENT Exam ENT Exam: Mucous Membranes Dry - Respiratory Exam Respiratory Exam: Decreased Breath Sounds - Cardiovascular Exam Cardiovascular Exam: Irregular Rhythm - GI/Abdominal Exam GI & Abdominal Exam: Soft, Normal Bowel Sounds. absent: Tenderness - Extremities Exam Extremities Exam: Normal Inspection - Neurological Exam Neurological Exam: Altered - Psychiatric Exam Psychiatric exam: Normal Affect, Normal Mood - Skin Skin Exam: Dry, Intact, Normal Color, Warm Assessment and Plan - Assessment and Plan (Free Text) Assessment: Patient is a 77 yo F with a past medical history of COPD, Saddle PE, Dementia, and A-fib who presents to the ED for evaluation and treatment for altered mental status and progressive shortness of breath. Plan: 1. Atrial Fibrillation with RVR - c/w cardizem drip @ 5 - started on cardizem 60mg PO q6h - digoxin x 1 - no anticoagulation due to allergy 2. AMS CT of Head: 1. No acute intracranial hemorrhage or acute territorial type infarct. 2. Hypodense encephalomalacia is identified in the region of the left insular cortex, which is stable. 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 3. There are scattered foci/areas of hypodensity within the cerebral white matter, likely representing small vessel ischemic disease in a patient this age. 4. Moderate atrophy. 5. Paranasal sinus disease is noted above - swallow eval- recommended nector thickened liquids - no acute intervention at this time 3. Elevated Troponin, likely 2/2 NSTEMI - trending down from 1.3 to 0.83 - Cardiology consult requested, appreciate recs - anticoagulation cannot be started as patient is allergic to all available therapies 4. Shortness of Breath, likely 2/2 CHF Exacerbation - BNP 18,900 - HCTZ 25 daily, lasix cannot be given as patient is allergic - oxygen supplementation- NC 2L 5. UTI - switched from rocephin to macrobid due to sensitivity 6. Back Pain - lidoderm path - toradol 15mg q6 prn pain 7. Hx of Hypothyroidism - Resume home synthroid 8. Hx of Hypertension - No home meds 9. Diabetes - Hold home medications - ISS Medium with Accuchecks ACHS 10. Chronic Pain - Continue Pregabalin GI/DVT Prophylaxis - Protonix/SCD Dispo: Patient's family is requesting hospice care. Home hospice set up as per case management. Patient seen and discussed in detail with Dr. Davidson. Maynor Burnham, PGY1 <Zachariah Davidson - Last Filed: 02/13/18 14:37> Objective - Vital Signs/Intake and Output Vital Signs (last 24 hours): Temp Pulse Resp BP Pulse Ox 97.6 F 72 20 126/77 95 02/13/18 12:00 02/13/18 12:00 02/13/18 12:00 02/13/18 12:00 02/13/18 12:00 Intake and Output: 02/13/18 02/13/18 06:59 18:59 Intake Total 180 100 Output Total 900 Balance -720 100 - Medications Medications: Current Medications Alprazolam (Xanax) 0.25 mg PO TID [facility] PRN Reason: Protocol Stop: 02/19/18 18:01 Last Admin: 02/13/18 10:04 Dose: Not Given Aspirin (Ecotrin) 81 mg PO DAILY [facility] Last Admin: 02/13/18 10:14 Dose: Not Given Diltiazem HCl (Cardizem) 60 mg PO Q6H [facility] Last Admin: 02/13/18 07:00 Dose: Not Given Hydrochlorothiazide (Hydrodiuril) 25 mg PO DAILY [facility] Last Admin: 02/13/18 10:03 Dose: 25 mg Valproate Sodium 250 mg/ (Sodium Chloride) 52.5 mls @ 52.5 mls/hr IVPB BID [facility] Last Admin: 02/13/18 10:04 Dose: 52.5 mls/hr diltiaZEM IVPB 100mg in NS (Cardizem 100mg In Ns) 100 mls @ 5 mls/hr IV .Q20H PRN; Protocol; 5 MG/HR PRN Reason: TITRATE PER MD ORDER Last Admin: 02/13/18 07:09 Dose: 5 mg/hr, 5 mls/hr Insulin Human Regular (Humulin R Med) 0 units SC ACHS [facility] PRN Reason: Protocol Last Admin: 02/13/18 12:05 Dose: Not Given Ketorolac Tromethamine (Toradol) 15 mg IVP Q8H PRN PRN Reason: Pain, moderate (4-7) Last Admin: 02/13/18 05:27 Dose: 15 mg Levothyroxine Sodium (Synthroid) 125 mcg PO 0600 [facility] Last Admin: 02/13/18 05:27 Dose: 125 mcg Lidocaine (Lidoderm) 1 ea TD DAILY [facility] Last Admin: 02/13/18 10:14 Dose: Not Given Lorazepam (Ativan) 1 mg IVP Q4 [facility] PRN Reason: Protocol Last Admin: 02/13/18 12:14 Dose: 1 mg Mirtazapine (Remeron) 15 mg PO HS [facility] Last Admin: 02/12/18 21:14 Dose: Not Given Nitrofurantoin Macrocrystals (Macrobid) 100 mg PO Q12 [facility] Last Admin: 02/13/18 10:04 Dose: Not Given Pantoprazole Sodium (Protonix Ec Tab) 40 mg PO 0600 [facility] Last Admin: 02/13/18 05:28 Dose: 40 mg Pregabalin (Lyrica) 50 mg PO BID [facility] Last Admin: 02/13/18 10:03 Dose: Not Given Quetiapine Fumarate (Seroquel) 12.5 mg PO HS [facility] PRN Reason: Protocol Last Admin: 02/12/18 21:13 Dose: Not Given - Labs Labs: 02/12/18 06:00 02/12/18 06:00 PT 13.2 SECONDS (9.4-12.5) H 02/09/18 17:30 INR 1.15 (0.93-1.08) H 02/09/18 17:30 APTT 32.3 Seconds (25.1-36.5) 02/09/18 17:30 Attending/Attestation - Attestation I have personally seen and examined this patient.: Yes I have fully participated in the care of the patient.: Yes I have reviewed all pertinent clinical information, including history, physical exam and plan: Yes Notes (Text): 02/13/18 13:34 Attending note; Patient seen and examined with resident. patient is resting comfortably. Not in any acute distress. patient with episodes of agitation and aggressive behavior. Sleeps with medications. Please continue IV meds if patient refused to take po meds. Patient is a 77 year old female with pertinent past medical history of Dementia , pulmonary embolus , atrial fibrillation, urinary incontinence , diabetes, bed bound and A-fib presenting with her daughters for altered mental status. Patient is not on any anticoagulation secondary to allergy and refusal. Patient had rapid A. fib. Currently on IV Cardizem. started on po Cardizem and digoxin. generalized pain; continue Toradol. Continue Lidoderm patch. Citrobacter UTI. CT scan showed possible right perinephric stranding. Started on Macrobid. Ct scan also showed left breast mass. Family is aware of the mass. Did not get any workup done as outpatient. Dementia/behavioral issues; psychiatric evaluation requested to adjust medication. started on Remeron and Xanax. Patient is DNR/DNI. family agreed for home hospice. Arrangements are being made for home care. Prognosis is poor.
[2018-02-14] MEDS: Levothyroxine 125 MCG TAB PO SCH (06:54)
[2018-02-14] MEDS: Pantoprazole 40 mg EC Tab PO SCH (06:55)
[2018-02-14] MEDS: Insulin Reg-MEDIUM-Coverage SC SCH ×4 (07:44→22:00)
[2018-02-14] MEDS: Lidocaine 5% Patch TD SCH (09:24)
--- NOTE | 2018-02-14 11:09 | CP.PCM.PN ---
<Braxton Burnham - Last Filed: 02/14/18 11:04> Subjective - Date & Time of Evaluation Date of Evaluation: 02/14/18 Time of Evaluation: 11:04 - Subjective Subjective: Medicine Progress Note Pt seen and examined at bedside. Patient agitated overnight and required medications. Patient currently somnolent on exam and ROS was unobtainable. Objective - Vital Signs/Intake and Output Vital Signs (last 24 hours): Temp Pulse Resp BP Pulse Ox 97.6 F 93 H 19 110/75 96 02/14/18 06:00 02/14/18 06:55 02/14/18 06:00 02/14/18 06:55 02/14/18 06:00 Intake and Output: 02/14/18 02/14/18 06:59 18:59 Intake Total 420 Output Total 800 Balance -380 - Medications Medications: Current Medications Alprazolam (Xanax) 0.25 mg PO TID [facility] PRN Reason: Protocol Stop: 02/19/18 18:01 Last Admin: 02/14/18 09:24 Dose: 0.25 mg Aspirin (Ecotrin) 81 mg PO DAILY [facility] Last Admin: 02/14/18 09:25 Dose: 81 mg Digoxin (Digoxin) 0.125 mg PO 1400 [facility] Diltiazem HCl (Cardizem) 60 mg PO Q6H [facility] Last Admin: 02/14/18 06:55 Dose: 60 mg Hydrochlorothiazide (Hydrodiuril) 25 mg PO DAILY [facility] Last Admin: 02/14/18 09:24 Dose: 25 mg Valproate Sodium 250 mg/ (Sodium Chloride) 52.5 mls @ 52.5 mls/hr IVPB BID [facility] Last Admin: 02/14/18 09:29 Dose: 52.5 mls/hr diltiaZEM IVPB 100mg in NS (Cardizem 100mg In Ns) 100 mls @ 5 mls/hr IV .Q20H PRN; Protocol; 5 MG/HR PRN Reason: TITRATE PER MD ORDER Last Admin: 02/13/18 07:09 Dose: 5 mg/hr, 5 mls/hr Insulin Human Regular (Humulin R Med) 0 units SC ACHS [facility] PRN Reason: Protocol Last Admin: 02/14/18 07:44 Dose: Not Given Ketorolac Tromethamine (Toradol) 15 mg IVP Q8H PRN PRN Reason: Pain, moderate (4-7) Last Admin: 02/13/18 22:41 Dose: 15 mg Levothyroxine Sodium (Synthroid) 125 mcg PO 0600 [facility] Last Admin: 02/14/18 06:54 Dose: 125 mcg Lidocaine (Lidoderm) 1 ea TD DAILY [facility] Last Admin: 02/14/18 09:24 Dose: 1 ea Lorazepam (Ativan) 1 mg IVP Q3 PRN; Protocol PRN Reason: Anxiety Last Admin: 02/14/18 02:00 Dose: 1 mg Mirtazapine (Remeron) 15 mg PO HS [facility] Last Admin: 02/13/18 22:41 Dose: 15 mg Nitrofurantoin Macrocrystals (Macrobid) 100 mg PO Q12 [facility] Last Admin: 02/14/18 09:24 Dose: 100 mg Pantoprazole Sodium (Protonix Ec Tab) 40 mg PO 0600 [facility] Last Admin: 02/14/18 06:55 Dose: 40 mg Pregabalin (Lyrica) 50 mg PO BID [facility] Last Admin: 02/14/18 09:24 Dose: 50 mg Quetiapine Fumarate (Seroquel) 12.5 mg PO DAILY [facility] PRN Reason: Protocol Last Admin: 02/14/18 09:24 Dose: 12.5 mg - Labs Labs: 02/12/18 06:00 02/12/18 06:00 PT 13.2 SECONDS (9.4-12.5) H 02/09/18 17:30 INR 1.15 (0.93-1.08) H 02/09/18 17:30 APTT 32.3 Seconds (25.1-36.5) 02/09/18 17:30 - Constitutional Appears: No Acute Distress - Head Exam Head Exam: NORMAL INSPECTION - Eye Exam Eye Exam: Normal appearance - ENT Exam ENT Exam: Normal Exam - Neck Exam Neck Exam: Normal Inspection - Respiratory Exam Respiratory Exam: Clear to Ausculation Bilateral. absent: Rales, Rhonchi, Wheezes - Cardiovascular Exam Cardiovascular Exam: RRR, +S1, +S2. absent: Gallop, Rubs, Murmur - GI/Abdominal Exam GI & Abdominal Exam: Soft. absent: Distended, Guarding, Tenderness, Rebound - Extremities Exam Extremities Exam: Normal Inspection - Neurological Exam Neurological Exam: CN II-XII Intact - Skin Skin Exam: Dry, Intact, Normal Color, Warm Assessment and Plan - Assessment and Plan (Free Text) Assessment: Patient is a 77 yo F with a past medical history of COPD, Saddle PE, Dementia, and A-fib who presents to the ED for evaluation and treatment for altered mental status and progressive shortness of breath. Plan: 1. Atrial Fibrillation with RVR - Cardizem drip, will transition to PO if HR remains stable - Digoxin 0.125 mg PO 1400 - no anticoagulation due to allergy 2. AMS CT of Head: 1. No acute intracranial hemorrhage or acute territorial type infarct. 2. Hypodense encephalomalacia is identified in the region of the left insular cortex, which is stable. 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 3. There are scattered foci/areas of hypodensity within the cerebral white matter, likely representing small vessel ischemic disease in a patient this age. 4. Moderate atrophy. 5. Paranasal sinus disease is noted above - swallow eval- recommended nector thickened liquids - no acute intervention at this time 3. Elevated Troponin, likely 2/2 NSTEMI - trending down from 1.3 to 0.83 - Cardiology consult requested, appreciate recs - anticoagulation cannot be started as patient is allergic to all available therapies 4. Shortness of Breath, likely 2/2 CHF Exacerbation - BNP 18,900 - HCTZ 25 daily, lasix cannot be given as patient is allergic - oxygen supplementation- NC 2L 5. UTI - switched from rocephin to macrobid due to sensitivity 6. Back Pain - lidoderm patch - toradol 15mg q6 prn pain 7. Hx of Hypothyroidism - Resume home synthroid 8. Hx of Hypertension - No home meds 9. Diabetes - Hold home medications - ISS Medium with Accuchecks ACHS 10. Chronic Pain - Continue Pregabalin GI/DVT Prophylaxis - Protonix/SCD Dispo: Patient's family is requesting hospice care. Home hospice set up as per case management. Patient seen and discussed in detail with Dr. Davidson. Maynor Burnham, PGY1 <Zachariah Davidson - Last Filed: 02/14/18 12:15> Objective - Vital Signs/Intake and Output Vital Signs (last 24 hours): Temp Pulse Resp BP Pulse Ox 97.6 F 93 H 19 110/75 96 02/14/18 06:00 02/14/18 06:55 02/14/18 06:00 02/14/18 06:55 02/14/18 06:00 Intake and Output: 02/14/18 02/14/18 06:59 18:59 Intake Total 420 Output Total 800 Balance -380 - Medications Medications: Current Medications Alprazolam (Xanax) 0.25 mg PO TID [facility] PRN Reason: Protocol Stop: 02/19/18 18:01 Last Admin: 02/14/18 09:24 Dose: 0.25 mg Aspirin (Ecotrin) 81 mg PO DAILY [facility] Last Admin: 02/14/18 09:25 Dose: 81 mg Digoxin (Digoxin) 0.125 mg PO 1400 [facility] Diltiazem HCl (Cardizem) 60 mg PO Q6H [facility] Last Admin: 02/14/18 06:55 Dose: 60 mg Hydrochlorothiazide (Hydrodiuril) 25 mg PO DAILY [facility] Last Admin: 02/14/18 09:24 Dose: 25 mg Valproate Sodium 250 mg/ (Sodium Chloride) 52.5 mls @ 52.5 mls/hr IVPB BID [facility] Last Admin: 02/14/18 09:29 Dose: 52.5 mls/hr diltiaZEM IVPB 100mg in NS (Cardizem 100mg In Ns) 100 mls @ 5 mls/hr IV .Q20H PRN; Protocol; 5 MG/HR PRN Reason: TITRATE PER MD ORDER Last Admin: 02/13/18 07:09 Dose: 5 mg/hr, 5 mls/hr Insulin Human Regular (Humulin R Med) 0 units SC ACHS [facility] PRN Reason: Protocol Last Admin: 02/14/18 07:44 Dose: Not Given Ketorolac Tromethamine (Toradol) 15 mg IVP Q8H PRN PRN Reason: Pain, moderate (4-7) Last Admin: 02/13/18 22:41 Dose: 15 mg Levothyroxine Sodium (Synthroid) 125 mcg PO 0600 [facility] Last Admin: 02/14/18 06:54 Dose: 125 mcg Lidocaine (Lidoderm) 1 ea TD DAILY [facility] Last Admin: 02/14/18 09:24 Dose: 1 ea Lorazepam (Ativan) 1 mg IVP Q3 PRN; Protocol PRN Reason: Anxiety Last Admin: 02/14/18 02:00 Dose: 1 mg Mirtazapine (Remeron) 15 mg PO HS [facility] Last Admin: 02/13/18 22:41 Dose: 15 mg Nitrofurantoin Macrocrystals (Macrobid) 100 mg PO Q12 [facility] Last Admin: 02/14/18 09:24 Dose: 100 mg Pantoprazole Sodium (Protonix Ec Tab) 40 mg PO 0600 [facility] Last Admin: 02/14/18 06:55 Dose: 40 mg Pregabalin (Lyrica) 50 mg PO BID [facility] Last Admin: 02/14/18 09:24 Dose: 50 mg Quetiapine Fumarate (Seroquel) 12.5 mg PO DAILY [facility] PRN Reason: Protocol Last Admin: 02/14/18 09:24 Dose: 12.5 mg - Labs Labs: 02/12/18 06:00 02/12/18 06:00 PT 13.2 SECONDS (9.4-12.5) H 02/09/18 17:30 INR 1.15 (0.93-1.08) H 02/09/18 17:30 APTT 32.3 Seconds (25.1-36.5) 02/09/18 17:30 Attending/Attestation - Attestation I have personally seen and examined this patient.: Yes I have fully participated in the care of the patient.: Yes I have reviewed all pertinent clinical information, including history, physical exam and plan: Yes Notes (Text): 02/14/18 12:13 Attending note; Patient seen and examined with resident. patient is resting comfortably. Not in any acute distress. patient with episodes of agitation and aggressive behavior. agitation gets better with medications. Please continue IV meds if patient refused to take po meds. Patient is a 77 year old female with pertinent past medical history of Dementia , pulmonary embolus , atrial fibrillation, urinary incontinence , diabetes, bed bound and A-fib presenting with her daughters for altered mental status. Patient is not on any anticoagulation secondary to allergy and refusal. Patient had rapid A. fib. Currently on IV Cardizem. started on po Cardizem and digoxin. generalized pain; continue Toradol. Continue Lidoderm patch. Citrobacter UTI. CT scan showed possible right perinephric stranding. Started on Macrobid. Ct scan also showed left breast mass. Family is aware of the mass. Did not get any workup done as outpatient. Dementia/behavioral issues; psychiatric evaluation requested to adjust medication. started on Remeron and Xanax. Seroquel added. Patient is DNR/DNI. family agreed for home hospice. case discussed with daughter in detail. Please follow up with hospice for home care Tomorrow. Prognosis is poor.
[2018-02-14] MEDS: Digoxin 125 mcg (0.125 mg) Tab PO SCH (13:50)
[2018-02-15] MEDS: diltiaZEM IVPB 100mg in NS 100 ML IV PRN (02:15)
[2018-02-15] MEDS: Levothyroxine 125 MCG TAB PO SCH (06:47)
[2018-02-15] MEDS: Pantoprazole 40 mg EC Tab PO SCH (06:47)
[2018-02-15] MEDS: Insulin Reg-MEDIUM-Coverage SC SCH ×3 (08:16→17:31)
[2018-02-15 08:37] VITALS: O2SAT 96
[2018-02-15] MEDS ORDERED: Valproate 250 MG in Sodium Chloride 0.9% 100 ML IVPB SCH (08:47)
[2018-02-15] MEDS: Lidocaine 5% Patch TD SCH (11:29)
--- NOTE | 2018-02-15 13:14 | CP.PCM.DIS ---
<SchaefferRama - Last Filed: 02/15/18 13:11> Provider - Provider Date of Admission: 02/09/18 19:37 Attending physician: Brooklynn Alcantara MD Primary care physician: Alex Sales MD Consults: Psych Cardiology Pallative care/hospice Time Spent in preparation of Discharge (in minutes): 35 Hospital Course - Lab Results Lab Results: Micro Results 02/09/18 20:46 Urine Urine Culture - Final Citrobacter Freundii Most Recent Lab Values WBC 8.7 10^3/ul (4.5-11.0) D 02/12/18 06:00 RBC 4.15 10^6/uL (3.5-6.1) 02/12/18 06:00 Hgb 12.5 g/dL (12.0-16.0) 02/12/18 06:00 Hct 37.2 % (36.0-48.0) 02/12/18 06:00 MCV 89.6 fl (80.0-105.0) 02/12/18 06:00 MCH 30.1 pg (25.0-35.0) 02/12/18 06:00 MCHC 33.6 g/dl (31.0-37.0) 02/12/18 06:00 RDW 13.9 % (11.5-14.5) 02/12/18 06:00 Plt Count 161 10^3/uL (120.0-450.0) 02/12/18 06:00 MPV 9.7 fl (7.0-11.0) 02/12/18 06:00 Gran % 65.6 % (50.0-68.0) 02/12/18 06:00 Lymph % (Auto) 19.6 % (22.0-35.0) L 02/12/18 06:00 Harlan % (Auto) 13.5 % (1.0-6.0) H 02/12/18 06:00 Eos % (Auto) 1.1 % (1.5-5.0) L 02/12/18 06:00 Baso % (Auto) 0.2 % (0.0-3.0) 02/12/18 06:00 Gran # 5.72 (1.4-6.5) 02/12/18 06:00 Lymph # (Auto) 1.7 (1.2-3.4) 02/12/18 06:00 Harlan # (Auto) 1.2 (0.1-0.6) H 02/12/18 06:00 Eos # (Auto) 0.1 (0.0-0.7) 02/12/18 06:00 Baso # (Auto) 0.02 K/mm3 (0.0-2.0) 02/12/18 06:00 PT 13.2 SECONDS (9.4-12.5) H 02/09/18 17:30 INR 1.15 (0.93-1.08) H 02/09/18 17:30 APTT 32.3 Seconds (25.1-36.5) 02/09/18 17:30 Sodium 135 mmol/L (132-148) 02/12/18 06:00 Potassium 3.5 mmol/L (3.6-5.0) L 02/12/18 06:00 Chloride 98 mmol/L (98-107) 02/12/18 06:00 Carbon Dioxide 26 mmol/L (21-33) 02/12/18 06:00 Anion Gap 15 (10-20) 02/12/18 06:00 BUN 24 mg/dL (7-21) H 02/12/18 06:00 Creatinine 0.7 mg/dl (0.7-1.2) 02/12/18 06:00 Est GFR ( Amer) > 60 02/12/18 06:00 Est GFR (Non-Af Amer) > 60 02/12/18 06:00 POC Glucose (mg/dL) 112 mg/dL (65-110) H 02/15/18 07:28 Random Glucose 157 mg/dL (70-110) H 02/12/18 06:00 Calcium 8.4 mg/dL (8.4-10.5) 02/12/18 06:00 Phosphorus 3.2 mg/dL (2.5-4.5) 02/12/18 06:00 Magnesium 1.8 mg/dL (1.7-2.2) 02/12/18 06:00 Total Bilirubin 1.0 mg/dL (0.2-1.3) 02/12/18 06:00 AST 20 U/L (14-36) 02/12/18 06:00 ALT 25 U/L (7-56) 02/12/18 06:00 Alkaline Phosphatase 67 U/L (38-126) 02/12/18 06:00 Lactate Dehydrogenase 649 U/L (333-699) 02/09/18 17:30 Total Creatine Kinase 60 U/L (35-230) 02/09/18 17:30 Troponin I 0.83 ng/mL H* D 02/10/18 07:00 NT-Pro-B Natriuret Pep 36635 pg/mL (0-450) H 02/09/18 17:30 Total Protein 6.0 g/dL (5.8-8.3) 02/12/18 06:00 Albumin 3.2 g/dL (3.0-4.8) 02/12/18 06:00 Globulin 2.8 gm/dL 02/12/18 06:00 Albumin/Globulin Ratio 1.1 (1.1-1.8) 02/12/18 06:00 Total T3 0.68 ng/mL (0.97-1.69) L 02/10/18 06:15 TSH 3rd Generation 0.36 mIU/mL (0.46-4.68) L 02/10/18 06:15 Urine Color Yellow (YELLOW) 02/09/18 20:46 Urine Appearance Cloudy (CLEAR) 02/09/18 20:46 Urine pH 6.0 (4.7-8.0) 02/09/18 20:46 Ur Specific Sedan 1.025 (1.005-1.035) 02/09/18 20:46 Urine Protein 30 mg/dL (<30 mg/dL) H 02/09/18 20:46 Urine Glucose (UA) Negative mg/dL (NEGATIVE) 02/09/18 20:46 Urine Ketones Trace mg/dL (NEGATIVE) H 02/09/18 20:46 Urine Blood Moderate (NEGATIVE) H 02/09/18 20:46 Urine Nitrate Positive (NEGATIVE) H 02/09/18 20:46 Urine Bilirubin Negative (NEGATIVE) 02/09/18 20:46 Urine Urobilinogen 0.2 E.U./dL (<1 E.U./dL) 02/09/18 20:46 Ur Leukocyte Esterase Moderate Jessica/uL (NEGATIVE) H 02/09/18 20:46 Urine RBC 25 - 30 /hpf (0-2) 02/09/18 20:46 Urine WBC 10 - 15 /hpf (0-6) 02/09/18 20:46 Ur Epithelial Cells 10 - 12 /hpf (0-5) 02/09/18 20:46 Amorphous Sediment Moderate 02/09/18 20:46 Urine Bacteria Small (NEG) 02/09/18 20:46 Valproic Acid 33 ug/mL (50.0-100.0) L 02/09/18 17:30 - Hospital Course Hospital Course: 77 F w/PMH sig for dementia, Afib admitted for AMS as per manohar. Per daughter, pt has been SOB requiring supplemental O2, "not herself". Work up findings positive for UTI on U/A- started on Rocephin, then switched to Macrobid. Trops positive x 2- likely NSTEMI as per cardiology. Started on Cardizem drip & digoxin for Afib w/RVR. Per daughter- pt does not want anticoagulation, medical intervention- requesting DNR/DNI, hospice services with resources rendered. Pt seen/evaluted by psych for behavior changes, recommendations for medications as per chart. Pt stabilized, ready for discharge home to finish a course of antibiotics for UTI with recommendations for new medications as per psych and cardiology. Diagnoses UTI Dementia Afib w/RVR AMS NSTEMI CHF exacerbation Back pain Hypothyroidism HTN DM Chronic pain syndrome - Date & Time of H&P Date of H&P: 02/09/18 Time of H&P: 23:07 Discharge Exam - Head Exam Head Exam: ATRAUMATIC, NORMAL INSPECTION, NORMOCEPHALIC - Eye Exam Eye Exam: EOMI, Normal appearance - ENT Exam ENT Exam: Mucous Membranes Moist, Normal Exam - Neck Exam Neck exam: Full Rom, Normal Inspection - Respiratory Exam Respiratory Exam: Clear to PA & Lateral, NORMAL BREATHING PATTERN, UNREMARKABLE - Cardiovascular Exam Cardiovascular Exam: Irregular Rhythm, +S1, +S2 - GI/Abdominal Exam GI & Abdominal Exam: Normal Bowel Sounds, Soft, Unremarkable. absent: Distended , Tenderness - Extremities Exam Extremities exam: normal inspection - Neurological Exam Neurological exam: Alert, CN II-XII Intact Additional comments: AO x 2 (self, place) - Psychiatric Exam Psychiatric exam: Normal Affect, Normal Mood - Skin Skin Exam: Dry, Intact, Normal Color, Warm Discharge Plan - Discharge Medications Prescriptions: Alprazolam [Xanax] 0.5 mg PO TID PRN #15 tab PRN Reason: Anxiety Digoxin 0.125 mg PO 1400 #30 tab hydroCHLOROthiazide [Hydrodiuril] 25 mg PO DAILY #30 tab Mirtazapine [Remeron] 15 mg PO HS #30 tab Nitrofurantoin Macrocrystals [Macrobid] 100 mg PO Q12 #8 cap Pregabalin [Lyrica] 50 mg PO BID #60 cap QUEtiapine [Seroquel] 25 mg PO HS #30 tab - Follow Up Plan Condition: STABLE Disposition: HOME/ ROUTINE Instructions: COPD Including Emphysema (DC), Urinary Tract Infection, Adult (DC ), Hypothyroidism (Underactive Thyroid) (DC), Medical Care During Advanced Illness, Tips for Caregivers of People With Alzheimer Disease, Dementia (DC), How to Prepare Your Home for a Person With a Disability, Foot Care for Diabetics , Palliative Care, Diabetes and Diet, Diabetes in Older Adults Additional Instructions: Please contact Hospice care team for any instructions after discharge. All medications to be reviewed by their team, who will make recommendations tailored to hospice care. Please have weekly labs drawn to monitor Digoxin levels. If you have any questions, please direct them to the hospice care team or your primary care provider. Referrals: Alex Sales MD [Primary Care Provider] - Clinical Quality Measures - CQM - Stroke Anticoagulation Prescribed for Atrial Flutter, Atrial Fibrillation and History of:: Yes - CQM - VTE If no, please select a reason why?: Patient/Family Refused If no, please select a reason why:: Patient/Family Refused Medical Reason for discharge Overlap Therapy: Patient Refused <Brooklynn Alcantara - Last Filed: 02/15/18 14:26> Provider - Provider Date of Admission: 02/09/18 19:37 Attending physician: Brooklynn Alcantara MD Primary care physician: Alex Sales MD Hospital Course - Lab Results Lab Results: Micro Results 02/09/18 20:46 Urine Urine Culture - Final Citrobacter Freundii Most Recent Lab Values WBC 8.7 10^3/ul (4.5-11.0) D 02/12/18 06:00 RBC 4.15 10^6/uL (3.5-6.1) 02/12/18 06:00 Hgb 12.5 g/dL (12.0-16.0) 02/12/18 06:00 Hct 37.2 % (36.0-48.0) 02/12/18 06:00 MCV 89.6 fl (80.0-105.0) 02/12/18 06:00 MCH 30.1 pg (25.0-35.0) 02/12/18 06:00 MCHC 33.6 g/dl (31.0-37.0) 02/12/18 06:00 RDW 13.9 % (11.5-14.5) 02/12/18 06:00 Plt Count 161 10^3/uL (120.0-450.0) 02/12/18 06:00 MPV 9.7 fl (7.0-11.0) 02/12/18 06:00 Gran % 65.6 % (50.0-68.0) 02/12/18 06:00 Lymph % (Auto) 19.6 % (22.0-35.0) L 02/12/18 06:00 Harlan % (Auto) 13.5 % (1.0-6.0) H 02/12/18 06:00 Eos % (Auto) 1.1 % (1.5-5.0) L 02/12/18 06:00 Baso % (Auto) 0.2 % (0.0-3.0) 02/12/18 06:00 Gran # 5.72 (1.4-6.5) 02/12/18 06:00 Lymph # (Auto) 1.7 (1.2-3.4) 02/12/18 06:00 Harlan # (Auto) 1.2 (0.1-0.6) H 02/12/18 06:00 Eos # (Auto) 0.1 (0.0-0.7) 02/12/18 06:00 Baso # (Auto) 0.02 K/mm3 (0.0-2.0) 02/12/18 06:00 PT 13.2 SECONDS (9.4-12.5) H 02/09/18 17:30 INR 1.15 (0.93-1.08) H 02/09/18 17:30 APTT 32.3 Seconds (25.1-36.5) 02/09/18 17:30 Sodium 135 mmol/L (132-148) 02/12/18 06:00 Potassium 3.5 mmol/L (3.6-5.0) L 02/12/18 06:00 Chloride 98 mmol/L (98-107) 02/12/18 06:00 Carbon Dioxide 26 mmol/L (21-33) 02/12/18 06:00 Anion Gap 15 (10-20) 02/12/18 06:00 BUN 24 mg/dL (7-21) H 02/12/18 06:00 Creatinine 0.7 mg/dl (0.7-1.2) 02/12/18 06:00 Est GFR ( Amer) > 60 02/12/18 06:00 Est GFR (Non-Af Amer) > 60 02/12/18 06:00 POC Glucose (mg/dL) 112 mg/dL (65-110) H 02/15/18 07:28 Random Glucose 157 mg/dL (70-110) H 02/12/18 06:00 Calcium 8.4 mg/dL (8.4-10.5) 02/12/18 06:00 Phosphorus 3.2 mg/dL (2.5-4.5) 02/12/18 06:00 Magnesium 1.8 mg/dL (1.7-2.2) 02/12/18 06:00 Total Bilirubin 1.0 mg/dL (0.2-1.3) 02/12/18 06:00 AST 20 U/L (14-36) 02/12/18 06:00 ALT 25 U/L (7-56) 02/12/18 06:00 Alkaline Phosphatase 67 U/L (38-126) 02/12/18 06:00 Lactate Dehydrogenase 649 U/L (333-699) 02/09/18 17:30 Total Creatine Kinase 60 U/L (35-230) 02/09/18 17:30 Troponin I 0.83 ng/mL H* D 02/10/18 07:00 NT-Pro-B Natriuret Pep 32455 pg/mL (0-450) H 02/09/18 17:30 Total Protein 6.0 g/dL (5.8-8.3) 02/12/18 06:00 Albumin 3.2 g/dL (3.0-4.8) 02/12/18 06:00 Globulin 2.8 gm/dL 02/12/18 06:00 Albumin/Globulin Ratio 1.1 (1.1-1.8) 02/12/18 06:00 Total T3 0.68 ng/mL (0.97-1.69) L 02/10/18 06:15 TSH 3rd Generation 0.36 mIU/mL (0.46-4.68) L 02/10/18 06:15 Urine Color Yellow (YELLOW) 02/09/18 20:46 Urine Appearance Cloudy (CLEAR) 02/09/18 20:46 Urine pH 6.0 (4.7-8.0) 02/09/18 20:46 Ur Specific Sedan 1.025 (1.005-1.035) 02/09/18 20:46 Urine Protein 30 mg/dL (<30 mg/dL) H 02/09/18 20:46 Urine Glucose (UA) Negative mg/dL (NEGATIVE) 02/09/18 20:46 Urine Ketones Trace mg/dL (NEGATIVE) H 02/09/18 20:46 Urine Blood Moderate (NEGATIVE) H 02/09/18 20:46 Urine Nitrate Positive (NEGATIVE) H 02/09/18 20:46 Urine Bilirubin Negative (NEGATIVE) 02/09/18 20:46 Urine Urobilinogen 0.2 E.U./dL (<1 E.U./dL) 02/09/18 20:46 Ur Leukocyte Esterase Moderate Jessica/uL (NEGATIVE) H 02/09/18 20:46 Urine RBC 25 - 30 /hpf (0-2) 02/09/18 20:46 Urine WBC 10 - 15 /hpf (0-6) 02/09/18 20:46 Ur Epithelial Cells 10 - 12 /hpf (0-5) 02/09/18 20:46 Amorphous Sediment Moderate 02/09/18 20:46 Urine Bacteria Small (NEG) 02/09/18 20:46 Valproic Acid 33 ug/mL (50.0-100.0) L 02/09/18 17:30 Attending/Attestation - Attestation I have personally seen and examined this patient.: Yes I have fully participated in the care of the patient.: Yes I have reviewed all pertinent clinical information, including history, physical exam and plan: Yes Notes (Text): 02/15/18 14:23 77 year old female with past medical history of dementia, afib, and diabetes who presented with altered mental status. She was found to have UTI and started on antibiotics. She is on cardizem for afib. She is not on any anticoagulation due to allergies and refusal. She was seen by psychiatry for dementia and behavioral issues. She is on remeron, seroquel and xanax prn. Case was discussed with patient's daughters and telehealth case manager. D/c home with home services / hospice if equipment setup for today. Follow up with pmd. Brooklynn Alcantara MD Hospitalist.
[2018-02-15] MEDS: Digoxin 125 mcg (0.125 mg) Tab PO SCH (13:45)
[2018-02-15 13:48] VITALS: PULSE 62
[2018-02-15 18:03] VITALS: BP 133/77; PULSE 85; RESP 19; TEMP 98.8
--- NOTE | 2018-02-16 08:40 | PN ---
DATE: 02/15/2018 Followup note for Ms. Kylah Bailey by psychiatrist, Dr. Robles. SUBJECTIVE: This remote mortgage underwriter follow up on this patient. Patient is on DNI and DNR. Patient is going to be discharged today to hospice care at home. Patient still have episodes of agitated and restless behavior, but much better controlled with medication. Family is involved. This remote mortgage underwriter discussed plan with patient's daughter. Please see Thursday's consultation note for more detailed information. This remote mortgage underwriter attempted to speak to the patient. Patient is deeply sedated. Collaterals were obtained from the nursing staff, was confirmed that patient is scheduled for discharge to hospice at home. VITAL SIGNS: This remote mortgage underwriter reviewed vital signs. MEDICATIONS: Reviewed. MENTAL STATUS EXAMINATION: Not possible because patient is sleeping right now. ASSESSMENT AND PLAN: So, comfort measure is recommended. Outcome is very guarded. Should you have any questions, give me a call back. This remote mortgage underwriter will sign off on this case. Thank you very much for letting me participate in care of your patient. Maria De Jesus Robles MD
== END 2018-02-15 20:08 | disposition hospice, home (50) | DRG 281 ==
LOC: ED 17:00 → ERH 19:37 → 2RSO 22:13 → UNDODISIN 02-15 19:20
PROVIDERS: ADMIT Internal Medicine; ATTEND Internal Medicine
DX: I21.4 Non-ST elevation (NSTEMI) myocardial infarction (principal); I13.0 Hypertensive heart and chronic kidney disease with heart failure and stage 1 through stage 4 chronic kidney disease, or unspecified chronic kidney disease; I50.32 Chronic diastolic (congestive) heart failure; N39.0 Urinary tract infection, site not specified; F03.91 Unspecified dementia, unspecified severity, with behavioral disturbance; I48.91 Unspecified atrial fibrillation; E11.22 Type 2 diabetes mellitus with diabetic chronic kidney disease; N18.9 Chronic kidney disease, unspecified; Z66 Do not resuscitate; E03.9 Hypothyroidism, unspecified; G89.4 Chronic pain syndrome; J44.9 Chronic obstructive pulmonary disease, unspecified; H35.30 Unspecified macular degeneration; H54.61 Unqualified visual loss, right eye, normal vision left eye; E78.5 Hyperlipidemia, unspecified; M54.5 Low back pain; Z51.5 Encounter for palliative care; N63.20 Unspecified lump in the left breast, unspecified quadrant; G93.89 Other specified disorders of brain; R13.10 Dysphagia, unspecified; B96.89 Other specified bacterial agents as the cause of diseases classified elsewhere; Z79.4 Long term (current) use of insulin; Z90.710 Acquired absence of both cervix and uterus; Z86.73 Personal history of transient ischemic attack (TIA), and cerebral infarction without residual deficits; Z87.891 Personal history of nicotine dependence; Z85.42 Personal history of malignant neoplasm of other parts of uterus; Z86.711 Personal history of pulmonary embolism; Z74.01 Bed confinement status; Z79.82 Long term (current) use of aspirin; Z88.8 Allergy status to other drugs, medicaments and biological substances; Z88.5 Allergy status to narcotic agent; Z88.0 Allergy status to penicillin